=== PATIENT | female | born 1980 | race Caucasian/White ===

== ENCOUNTER → 2017-03-10 | Outpatient (CLI) | payer OTHER ==
--- NOTE | 2017-03-13 07:03 | US ---
EXAMINATION TYPE: US transvaginal DATE OF EXAM: 03/10/2017 COMPARISON: US May 16, 2015. CT abdomen and pelvis May 21, 2015 CLINICAL HISTORY: N83.20 Ovarian Cyst per order. TECHNIQUE: Transvaginal (TV) and Transabdominal (TA) Date of LMP: 02/08/2017 EXAM MEASUREMENTS: Uterus: 9.7 x 6.0 x 7.2 cm Endometrial Stripe: 0.9 cm Right Ovary: 3.8 x 3.7 x 3.7 cm Left Ovary: 4.6 x 4.2 x 3.3 cm a few images were taken transabdominally to supplement views of bilateral ovaries. 1. Uterus: Anteverted wnl 2. Endometrium: wnl 3. Right Ovary: 2.7 x 2.7 x 2.5 cm even echo lesion that contains a 1.2 x 1.2 x 1.4 cm echogenic are a. 4. Left Ovary: cyst measures 3.6 x 2.7 x3.9 cm, best seen transabdominally. . 5. Bilateral Adnexa: wnl 6. Posterior cul-de-sac: no free fluid IMPRESSION: There is redemonstration of 2.7 cm right ovarian dermoid with hyperechoic component corre sponding to smaller area of soft tissue density on CT. Lesion felt stable. There is new 3.9 cm hypoec hoic to anechoic oval left ovarian lesion favoring debris-filled or hemorrhagic cyst. Consider ultras ound follow-up in 6 weeks' time to rule out cystic neoplasm.
--- NOTE | 2017-03-13 07:58 | USB ---
Reason for exam: clinical finding. Indicated problem(s): lump or thickening in the left breast. Physical Findings: Nurse Summary: left inner aspect of breast 10 o'clock, subcutaneous area 1.5 x 0.5cm noted (nurse ts). US Breast LT Left breast ultrasound includes all four quadrants, the retroareolar region and axilla. Finding demonstrates a 1.2 x 0.7 x 1.4cm oval, solid lesion at 10 o'clock. May relate to an epidermal inclusion cyst and therefore ultrasound guided percutaneous biopsy is not recommended due to the risk of chemical mastitis. These results were verbally communicated with the patient and result sheet given to the patient on 03/10/17. ASSESSMENT: Suspicious, BI-RAD 4 RECOMMENDATION: Surgical consultation of the left breast. Dermatology consultation with excision recommended.
== END | disposition home or self-care (01) ==
LOC: RADUSWWP 14:59
PROVIDERS: ATTEND Pediatrics
DX: N63.0 Unspecified lump in unspecified breast (principal); N83.8 Other noninflammatory disorders of ovary, fallopian tube and broad ligament; N83.209 Unspecified ovarian cyst, unspecified side
CPT/HCPCS: 76830

== ENCOUNTER → 2017-03-30 | Outpatient (CLI) | payer OTHER | END | disposition home or self-care (01) | LOC: LABPAT 16:46 | PROVIDERS: ATTEND Anesthesiology | DX: Z01.812 Encounter for preprocedural laboratory examination (principal); Z01.818 Encounter for other preprocedural examination | CPT/HCPCS: 36415; 84132; 93005 ==

== ENCOUNTER 2017-04-04 08:14 | Day surgery (SDC) | payer OTHER ==
[2017-03-29 13:56] VITALS: BMI 41.2
[~2017-04-04 08:14] MED LIST: DEXAMETHASONE SOD PHOSPHATE 10 MG/ML 1 ML VIAL IV ONE; HEPARIN SODIUM,PORCINE 5,000 UNIT/ML 1 ML VIAL SQ ONE; LACTATED RINGERS 1,000 ML IV SCH; MORPHINE SULFATE 2 MG/ML SYRINGE IV PRN; ONDANSETRON 4 MG/2 ML VIAL IVP ONE; ONDANSETRON 4 MG/2 ML VIAL IVP PRN; Pre Op ABX Message 1 EACH MISC MISCELLANE ONE; fentaNYL (PF) 50 MCG/ML 2 ML AMP IV PRN
[2017-04-04 08:29] VITALS: RESP 16; TEMP 97
[2017-04-04] MEDS ORDERED: LIDOCAINE 1% 20 ML VIAL (10MG/ML) FOR IV START INTRADERMA ONE (08:35)
[2017-04-04] MEDS ORDERED: HEPARIN SODIUM,PORCINE 5,000 UNIT/ML 1 ML VIAL SQ ONE (08:48)
[2017-04-04] MEDS ORDERED: PROPOFOL 10 MG/ML 20 ML VIAL IV ONE (09:01)
[2017-04-04] MEDS ORDERED: fentaNYL (PF) 50 MCG/ML 2 ML AMP ONE (09:01)
[2017-04-04] MEDS ORDERED: LIDOCAINE 1% INJ 10MG/ML (20 ML MDV) ONE (09:01)
[2017-04-04] MEDS ORDERED: MIDAZOLAM 2 MG/2 ML VIAL ONE (09:01)
[2017-04-04] MEDS ORDERED: LIDOCAINE 1% INJ 10MG/ML (20 ML MDV) SQ ONE ×2 (09:15)
--- NOTE | 2017-04-04 09:37 | P.OP ---
Date of Procedure: 04/04/17 Preoperative Diagnosis: Cyst anterior chest wall Postoperative Diagnosis: Same Procedure(s) Performed: Sebaceous cyst excision Anesthesia: MAC Surgeon: Ally Daley Estimated Blood Loss (ml): 2 IV fluids (ml): 400 Pathology: other (Sebaceous cyst) Condition: stable Disposition: PACU Indications for Procedure: enlarging cyst chest wall Operative Findings: sebacious cyst Description of Procedure: Patient was taken to the operating room and following sedation the chest was prepped and draped in a sterile fashion. An incision was made over the palpable cystic abnormality. Wide excision was performed. The cyst was approximately 2.5 cm x 1 cm. After assured that hemostasis was attained the wound was well irrigated. Within the confines of the cyst was sebaceous material. The subcutaneous tissues were closed with 3-0 Vicryl suture. The skin was closed with 4-0 Monocryl. The patient tolerated the procedure in stable condition. All instrument and sponge counts were correct at the end of the case.
--- NOTE | 2017-04-04 09:38 | P.DS ---
Providers Attending physician: Ally Daley Primary care physician: Vimal Leavitt Plan - Discharge Summary New Discharge Prescriptions: No Action Ibuprofen [Motrin] 600 mg PO Q6HR PRN #20 tab PRN Reason: Pain Losartan-Hctz 50-12.5 mg [Hyzaar 50-12.5] 1 each PO DAILY metroNIDAZOLE [Flagyl] 500 mg PO BID Discharge Medication List Ibuprofen [Motrin] 600 mg PO Q6HR PRN #20 tab 11/30/16 [Rx] Losartan-Hctz 50-12.5 mg [Hyzaar 50-12.5] 1 each PO DAILY 03/29/17 [History] metroNIDAZOLE [Flagyl] 500 mg PO BID 03/29/17 [History] Follow up Appointment(s)/Referral(s): Ally Daley MD [STAFF PHYSICIAN] - 1 Week Activity/Diet/Wound Care/Special Instructions: Patient may shower after [address] today Discharge Disposition: HOME SELF-CARE
[2017-04-04 10:08] VITALS: BP 117/56; PULSE 70
--- NOTE | 2017-04-07 17:03 | CDI ---
Outpatient Documentation Clarification Form Date: 04/07/17 CDS/Electrical Control Assembler Name: Jaclyn Cowan Phone: If any questions, call Quynh Hudson Pin Cleaner at [phone] Patient Name: Vicky Miles Admit Date: 04/04/17 Discharge Date: 04/04/17 ATTENTION: The [facility] Coding Staff appreciate your assistance in clarifying documentation. Please respond to the clarification below the line at the bottom and electronically sign. The [facility] Coding staff will review the response and follow-up if needed. Please note: Queries are made part of the Legal Health Record. If you have any questions, please contact the Pin Cleaner. Dear Dr. Daley What is the size of skin repair/closure? Thank you for your kind consideration. MTDD
--- NOTE | 2017-04-11 12:52 | CDI ---
Documentation Clarification OP Outpatient Documentation Clarification Form Date: 04/07/17 CDS/Oil Field Operator Name: Jaclyn Cowan Phone: If any questions, call Quynh Hudson Academic Department Chair at [phone] Patient Name: Vicky Miles Admit Date: 04/04/17 Discharge Date: 04/04/17 ATTENTION: The [facility] Coding Staff appreciate your assistance in clarifying documentation. Please respond to the clarification below the line at the bottom and electronically sign. The [facility] Coding staff will review the response and follow-up if needed. Please note: Queries are made part of the Legal Health Record. If you have any questions, please contact the Academic Department Chair. Dear Dr. Daley What is the size of skin repair/closure? Thank you for your kind consideration. MTDD
--- NOTE | 2017-04-26 14:14 | CDI ---
Date: 04/07/17 CDS/Deputy Commonwealth'S Attorney Name: Jaclyn Cowan Phone: If any questions, call Quynh Hudson Organ Grinder at [phone] Patient Name: Vicky Miles Admit Date: 04/04/17 Discharge Date: 04/04/17 ATTENTION: The [facility] Coding Staff appreciate your assistance in clarifying documentation. Please respond to the clarification below the line at the bottom and electronically sign. The [facility] Coding staff will review the response and follow-up if needed. Please note: Queries are made part of the Legal Health Record. If you have any questions, please contact the Organ Grinder. Dear Dr. Daley What is the size of skin repair/closure? Thank you for your kind consideration. The size of the skin closure was 2.5 cm. MTDD
== END 2017-04-04 10:34 | disposition home or self-care (01) ==
LOC: OR 08:14
PROVIDERS: ATTEND Surgery
DX: L72.0 Epidermal cyst (principal); I10 Essential (primary) hypertension; F17.210 Nicotine dependence, cigarettes, uncomplicated; Z79.899 Other long term (current) drug therapy; E66.01 Morbid (severe) obesity due to excess calories; Z68.41 Body mass index [BMI] 40.0-44.9, adult
CPT/HCPCS: 11403; 12031; 81025; 88304; J2250; J1644; J1100; J2405; J2001; J3010; J2704

== ENCOUNTER → 2017-05-01 | Outpatient (CLI) | payer OTHER ==
--- NOTE | 2017-05-01 13:06 | US ---
EXAMINATION TYPE: US pelvic complete DATE OF EXAM: 05/01/2017 COMPARISON: Pelvic ultrasound March 10, 2017 CLINICAL HISTORY: N83.209 Ovarian cyst. TECHNIQUE: . Transabdominal sonographic images of the pelvis were acquired. Transvaginal sonographi c images were medically necessary to better assess the following anatomy: Date of LMP: 04/17/17 EXAM MEASUREMENTS: Uterus: 13.0 x 5.6 x 7.0 cm Endometrial Stripe: 1.0 cm Right Ovary: 4.4 x 2.9 x 3.0 cm Left Ovary: 3.1 x 2.4 x 2.3 cm 1. Uterus: Anteverted, heterogeneous 2. Endometrium: wnl 3. Right Ovary: redemonstration of 3.2 x 2.7 x 2.7 cm right ovarian dermoid with hyperechoic compon ent corresponding to smaller area of soft tissue density on CT 4. Left Ovary: wnl Spectral, color and waveform doppler imaging shows good arterial and venous flow within the ovaries ; there is no evidence for ovarian torsion. 5. Bilateral Adnexa: wnl 6. Posterior cul-de-sac: wnl IMPRESSION: There is interval resolution of nonsimple cyst left ovary consistent with resolved hemorr hagic cyst. There is stable 3.2 cm right ovarian dermoid.
== END | disposition home or self-care (01) ==
LOC: RADUSWWP 11:10
PROVIDERS: ATTEND Pediatrics
DX: D27.0 Benign neoplasm of right ovary (principal)
CPT/HCPCS: 76856

== ENCOUNTER 2017-11-04 15:47 | Emergency (ER) | payer OTHER ==
[2017-11-04 15:52] VITALS: BP 160/84; PULSE 95; RESP 18; TEMP 98.4
--- NOTE | 2017-11-04 17:10 | ED ---
General Adult HPI - General Chief complaint: Extremity Injury, Lower Stated complaint: Toe pain Time Seen by Provider: 11/04/17 16:08 Source: patient, RN notes reviewed Mode of arrival: ambulatory Limitations: no limitations - History of Present Illness Initial comments: 37-year-old female percent to the emergency department for a chief complaint of left great toe pain 2 days. Patient states she believes her toenail may be ingrown. Patient states that she did try to trim the distal part of the toenail and it did alleviate the pain for a bit but pain started again more proximately on the nail. Patient states most of the pain is located along the medial aspect of the left great toenail. She states it is painful to walk on. She denies any drainage from the nail. She denies any streaking or spreading redness. She denies any fevers or chills. Patient has no other complaints at this time including shortness of breath, chest pain, abdominal pain, nausea or vomiting, headache, or visual changes. - Related Data Home Medications Medication Instructions Recorded Confirmed Losartan-Hctz 50-12.5 mg [Hyzaar 1 each PO DAILY 03/29/17 04/04/17 50-12.5] metroNIDAZOLE [Flagyl] 500 mg PO BID 03/29/17 04/04/17 Previous Rx's Medication Instructions Recorded Ibuprofen [Motrin] 600 mg PO Q6HR PRN #20 tab 11/30/16 Cephalexin [Keflex] 500 mg PO Q6HR 7 Days cap 11/04/17 Allergies Allergy/AdvReac Type Severity Reaction Status Date / Time No Known Allergies Allergy Verified 11/04/17 15:52 Review of Systems ROS Statement: Those systems with pertinent positive or pertinent negative responses have been documented in the HPI. ROS Other: All systems not noted in ROS Statement are negative. 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 History of Any Multi-Drug Resistant Organisms: None Reported Past Surgical History: Section, Cholecystectomy, Tubal Ligation Additional Past Surgical History / Comment(s): x2 Past Anesthesia/Blood Transfusion Reactions: No Reported Reaction Past Psychological History: No Psychological Hx Reported Smoking Status: Current every day smoker Past Alcohol Use History: Occasional Past Drug Use History: None Reported - Past Family History Mother Family Medical History: Diabetes Mellitus, Hyperlipidemia, Hypertension Father Family Medical History: Cancer, Diabetes Mellitus, Hyperlipidemia, Hypertension General Exam Limitations: no limitations General appearance: alert, in no apparent distress Head exam: Present: atraumatic, normocephalic, normal inspection Eye exam: Present: normal appearance, PERRL, EOMI. Absent: scleral icterus, conjunctival injection, periorbital swelling ENT exam: Present: normal exam, mucous membranes moist Neck exam: Present: normal inspection, full ROM. Absent: tenderness, meningismus, lymphadenopathy Respiratory exam: Present: normal lung sounds bilaterally. Absent: respiratory distress, wheezes, rales, rhonchi, stridor Cardiovascular Exam: Present: regular rate, normal rhythm, normal heart sounds. Absent: systolic murmur, diastolic murmur, rubs, gallop, clicks Extremities exam: Present: full ROM (Full range motion of the left great toe), tenderness (Tenderness to the proximal medial aspect of the left great toenail. No tenderness in the MCP or IP joint of the left great toe. No tenderness to the lateral aspect of the great toe), normal capillary refill (Capillary refill less than 2 seconds and PD pulse 2+ in the left lower extremity), joint swelling (. Mild erythema noted of the medial aspect of the left great toenail. No edema noted. No spreading or streaking redness or signs of infection. Toenail does appear to be ingrown proximally.), other (Sensation intact in the left great toe) Neurological exam: Present: alert, oriented X3, CN II-XII intact Psychiatric exam: Present: normal affect, normal mood Course Vital Signs 11/04/17 15:50 Temperature 98.4 F Pulse Rate 95 Respiratory 18 Rate Blood Pressure 160/84 O2 Sat by Pulse 99 Oximetry Procedures - Procedures Initial comment: Area was cleaned with alcohol and 3 mL of 1% lidocaine was injected into the proximal left great toe to perform a digital block. Toe was then cleaned with iodine. Medial aspect of left great toenail was trimmed up to the eponychium. No complications or excessive bleeding. Medical Decision Making - Medical Decision Making 37-year-old female presents to the emergency department for left great toe pain 2 days. Patient states she believes it is ingrown. She states she did try to trim the distal aspect of the toenail which did alleviate the pain somewhat but patient still has pain on the medial aspect of the left great toenail more proximally. Patient states it hurts to walk or put on shoes. On exam toenail does appear to be ingrown. Mild erythema noted to the proximal nail bed without any evidence for cellulitis. No spreading or streaking redness or drainage. No infectious process at this time. I did offer x-ray to the patient which she refused at this time as she believes pain is related to right toenail. I did numb the toenail and trim the medial aspect of the toenail up to the epionychium. No complications. I did recommend following up with podiatry as patient's toenail is rather thickened. I discussed they may do further procedures or trim the nail more. Patient was also given Keflex to prevent any infection. She will return to the emergency Department if she notices any spreading or streaking redness, increased pain or swelling, drainage , fever, or any other worsening concerns which were discussed with her. Disposition Clinical Impression: Toe pain, left Disposition: HOME SELF-CARE Condition: Good Instructions: Ingrown Nail (ED) Additional Instructions: Please take Keflex as directed. Take Motrin and Tylenol for pain. Do warm soaks of the left foot. Please follow-up with primary care or podiatry in 1-2 days. Return to the emergency department if you have any worsening symptoms spreading or streaking redness, fevers or chills, worsening pain, or any other concerns. Prescriptions: Cephalexin [Keflex] 500 mg PO Q6HR 7 Days cap Is patient prescribed a controlled substance at d/c from ED?: No Referrals: Vimal Leavitt MD [Primary Care Provider] - 1-2 days Graham Rashid DPM [STAFF PHYSICIAN] - 1-2 days Time of Disposition: 17:09
== END 2017-11-04 17:16 | disposition home or self-care (01) ==
LOC: EC 15:47
DX: M79.675 Pain in left toe(s) (principal); I10 Essential (primary) hypertension; F17.200 Nicotine dependence, unspecified, uncomplicated; Z53.29 Procedure and treatment not carried out because of patient's decision for other reasons; Z79.899 Other long term (current) drug therapy
CPT/HCPCS: 64450; 99283

== ENCOUNTER 2018-03-10 11:09 | Emergency (ER) | payer OTHER ==
[2018-03-10 11:16] VITALS: BP 148/89; PULSE 73; RESP 18; TEMP 98.7
--- NOTE | 2018-03-10 11:54 | ED ---
Lower Extremity Injury HPI - General Chief Complaint: Extremity Injury, Lower Stated Complaint: R Ankle Pain Time Seen by Provider: 03/10/18 11:16 Source: patient, RN notes reviewed Mode of arrival: wheelchair Limitations: no limitations - History of Present Illness Initial Comments: 37-year-old female presents emergency Department with chief complaint of right ankle pain. Patient states that it's only hurts her with weightbearing and certain movements. Patient states started last night after work. She has had a prior fracture. Denies any paresthesias. She states it hurts along the lateral portion of her ankle denies for pain, proximal tib-fib pain. - Related Data Home Medications Medication Instructions Recorded Confirmed Losartan-Hctz 50-12.5 mg [Hyzaar 1 each PO DAILY 03/29/17 04/04/17 50-12.5] metroNIDAZOLE [Flagyl] 500 mg PO BID 03/29/17 04/04/17 Previous Rx's Medication Instructions Recorded Ibuprofen [Motrin] 600 mg PO Q6HR PRN #20 tab 11/30/16 Cephalexin [Keflex] 500 mg PO Q6HR 7 Days cap 11/04/17 Ibuprofen [Motrin] 600 mg PO Q8HR PRN #30 tab 03/10/18 Allergies Allergy/AdvReac Type Severity Reaction Status Date / Time No Known Allergies Allergy Verified 03/10/18 11:11 Review of Systems ROS Statement: Those systems with pertinent positive or pertinent negative responses have been documented in the HPI. ROS Other: All systems not noted in ROS Statement are negative. 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 History of Any Multi-Drug Resistant Organisms: None Reported Past Surgical History: Section, Cholecystectomy, Tubal Ligation Additional Past Surgical History / Comment(s): x2 Past Anesthesia/Blood Transfusion Reactions: No Reported Reaction Past Psychological History: No Psychological Hx Reported Smoking Status: Current every day smoker Past Alcohol Use History: None Reported Past Drug Use History: None Reported - Past Family History Mother Family Medical History: Diabetes Mellitus, Hyperlipidemia, Hypertension Father Family Medical History: Cancer, Diabetes Mellitus, Hyperlipidemia, Hypertension General Exam Limitations: no limitations General appearance: alert, in no apparent distress Head exam: Present: atraumatic, normocephalic, normal inspection Respiratory exam: Present: normal lung sounds bilaterally. Absent: respiratory distress, wheezes, rales, rhonchi, stridor Cardiovascular Exam: Present: regular rate, normal rhythm, normal heart sounds. Absent: systolic murmur, diastolic murmur, rubs, gallop, clicks Extremities exam: Present: other (Right ankle there is moderate swelling the lateral malleoli region, tenderness with palpation and pain with inversion, dorsiflexion neurovascular intact no foot tenderness no proximal tib-fib tenderness) Skin exam: Present: warm, dry, intact, normal color. Absent: rash Course Vital Signs 03/10/18 11:11 Temperature 98.7 F Pulse Rate 73 Respiratory 18 Rate Blood Pressure 148/89 O2 Sat by Pulse 98 Oximetry Medical Decision Making - Medical Decision Making 37-year-old female presented for right ankle injury. X-rays were obtained no acute fracture. Patient has a right ankle sprain. Patient was Daquan wrapped and will follow-up with her PCP. Disposition Clinical Impression: Right ankle sprain Disposition: HOME SELF-CARE Condition: Stable Instructions (If sedation given, give patient instructions): Ankle Sprain (ED) Additional Instructions: Please return to the Emergency Department if symptoms worsen or any other concerns. Prescriptions: Ibuprofen [Motrin] 600 mg PO Q8HR PRN #30 tab PRN Reason: Pain Is patient prescribed a controlled substance at d/c from ED?: No Referrals: Vimal Leavitt MD [Primary Care Provider] - 1-2 days Time of Disposition: 12:38
--- NOTE | 2018-03-10 12:24 | XR ---
EXAMINATION TYPE: XR ankle complete RT DATE OF EXAM: 03/10/2018 CLINICAL HISTORY: Injury last night with pain TECHNIQUE: Frontal, lateral and oblique images of the right ankle are obtained. COMPARISON: Right ankle x-ray July 13, 2013. FINDINGS: There is no acute fracture/dislocation evident in the right ankle. The ankle mortise appe ars within normal limits. Mild to moderate soft tissue swelling over the lateral malleolus is present . Incidental small sized superior and inferior calcaneal spurs are redemonstrated. IMPRESSION: There is no acute fracture or dislocation in the right ankle.
== END 2018-03-10 13:13 | disposition home or self-care (01) ==
LOC: EC 11:09
DX: S93.401A Sprain of unspecified ligament of right ankle, initial encounter (principal); I10 Essential (primary) hypertension; F17.200 Nicotine dependence, unspecified, uncomplicated; Z79.899 Other long term (current) drug therapy; X50.9XXA Other and unspecified overexertion or strenuous movements or postures, initial encounter
CPT/HCPCS: 99283

== ENCOUNTER → 2018-03-21 | Outpatient (CLI) | payer OTHER ==
--- NOTE | 2018-03-21 10:34 | ECHOS ---
STRESS ECHOCARDIOGRAM INDICATIONS: Chest pain. MEDICATIONS: Losartan, Glucophage. BASELINE HEART RATE: 66 BASELINE BLOOD PRESSURE: 115/52 MAXIMUM HEART RATE: 148 MAXIMUM BLOOD PRESSURE: 196/67 85% MPHR: 154 100% MPHR: 181 METS: 10.3 MAXIMUM STAGE REACHED: 3 TOTAL EXERCISE TIME: 9:00 CLINICAL INFORMATION: Baseline EKG shows sinus rhythm, normal axis, normal intervals. Patient exercised on Martinez protocol for a total of 9 minutes achieving 10 METS, 82% of predicted maximal heart rate without chest pain or diagnostic ST-segment depression. Baseline echo shows normal left ventricular size, wall motion and systolic function. Post exercise, there is normal hyperdynamic response of all the segments of myocardium noted. Contrast was used to enhance endocardial visualization both in rest and stress images. CONCLUSION: 1. Good exercise tolerance. 2. Inconclusive stress echo due to inability to attain target heart rate. 3. No evidence of ischemia at 82% of predicted maximal heart rate. MMODL / IJN: [id number] /
--- NOTE | 2018-03-21 12:41 | US ---
EXAMINATION TYPE: US pelvic complete DATE OF EXAM: 03/21/2018 COMPARISON: US dated 05/01/2017, CT abdomen pelvis 05/21/2015 CLINICAL HISTORY: R07.9 Chest pain D36.9 Dermoid cyst. Irregular menses, possible dermoid rt ovary on previous exam TECHNIQUE: Transabdominal (TA). Transabdominal sonographic images of the pelvis were acquired. Date of LMP: 01/10/2018 EXAM MEASUREMENTS: Uterus: 10.7 x 6.5 x 6.5 cm Endometrial Stripe: 0.7 cm Right Ovary: 4.5 x 3.0 x 3.4 cm Left Ovary: 3.8 x 3.2 x 3.7 cm 1. Uterus: Anteverted Heterogeneous 2. Endometrium: wnl 3. Right Ovary: cyst= 3.0 x 2.0 x 2.5 cm/ adjacent echogenic focus as seen on prior measures = 1.8 x 1.3 x 1.6 cm 4. Left Ovary: Cyst= 2.7 x 2.4 x 2.7 cm 5. Bilateral Adnexa: wnl 6. Posterior cul-de-sac: wnl IMPRESSION: Bilateral ovarian cystic lesions, echogenic focus adjacent to the right ovarian cyst show s a similar appearance to prior consistent with patient's history of dermoid.
== END | disposition home or self-care (01) ==
LOC: RADNMMAIN 08:23
PROVIDERS: ATTEND Pediatrics
DX: D27.0 Benign neoplasm of right ovary (principal); D27.1 Benign neoplasm of left ovary; R94.39 Abnormal result of other cardiovascular function study; R07.9 Chest pain, unspecified
CPT/HCPCS: 76856; 36415; C8930; Q9950; 93351

== ENCOUNTER → 2018-06-06 | Outpatient (CLI) | payer OTHER ==
--- NOTE | 2018-06-06 13:44 | MM ---
Reason for exam: screening (asymptomatic). Baseline mammogram. History: Took hormonal contraceptives beginning at age 18. Physical Findings: Nurse did not find any significant physical abnormalities on exam. MG 3D Screening Mammo W/Cad Bilateral CC and MLO view(s) were taken. There are scattered fibroglandular densities. Benign calcifications. These results were verbally communicated with the patient and result sheet given to the patient on 06/06/18. ASSESSMENT: Benign, BI-RAD 2 RECOMMENDATION: Routine screening mammogram of both breasts in 1 year.
== END | disposition home or self-care (01) ==
LOC: RADMAMWWP 12:57
PROVIDERS: ATTEND Pediatrics
DX: Z12.31 Encounter for screening mammogram for malignant neoplasm of breast (principal)
CPT/HCPCS: 77063; 77067

== ENCOUNTER → 2018-11-01 | Outpatient (CLI) | payer OTHER ==
[2018-11-01 10:00] LABS: Basophils # (A) 0.1 k/uL (0-0.2); Basophils % (A) 1 %; Eosinophils # (A) 0.3 k/uL (0-0.7); Eosinophils % (A) 3 %; HCT 40.8 % (34.0-46.0); HGB 13.8 gm/dL (11.4-16.0); Lymphocytes # (A) 2.6 k/uL (1.0-4.8); Lymphocytes % (A) 27 %; MCH 31.4 pg (25.0-35.0); MCHC 33.8 g/dL (31.0-37.0); Mean Platelet Volume 7.3; Monocytes # (A) 0.3 k/uL (0-1.0); Monocytes % (A) 3 %; Neutrophils # (A) 6.2 k/uL (1.3-7.7); Neutrophils % (A) 65 %; Platelet Count 216 k/uL (150-450); RBC 4.39 m/uL (3.80-5.40); WBC 9.5 k/uL (3.8-10.6)
[2018-11-01 10:25] LABS: Creatine Kinase MB 1.1 ng/mL (0.0-2.4); Troponin I <0.012 ng/mL (0.000-0.034)
--- NOTE | 2018-11-01 13:28 | XR ---
EXAMINATION TYPE: XR chest 2V DATE OF EXAM: 11/01/2018 COMPARISON: Prior chest x-ray 09/23/2015 HISTORY: Chest pain TECHNIQUE: Frontal and lateral views of the chest are obtained. FINDINGS: There is no focal air space opacity, pleural effusion, or pneumothorax seen. The cardiac silhouette size is within normal limits. The osseous structures are intact. Surgical clips are pres ent in the right upper quadrant. IMPRESSION: No acute cardiopulmonary process.
[2018-11-01 17:15] LABS: African American GFR (CKD) 132.1 (60.0-200.0); Albumin 4.3 g/dL (3.80-4.90); Albumin/Globulin Ratio 2.15 (1.60-3.17); Anion Gap 6.1 mmol/L (4.00-12.00); Calcium 8.9 mg/dL (8.7-10.3); Carbon Dioxide 24.9 mmol/L (21.6-31.8); Potassium 4.4 mmol/L (3.5-5.5); Total Bilirubin 0.4 mg/dL (0.3-1.2); Total Protein 6.3 g/dL (6.2-8.2)
== END | disposition home or self-care (01) ==
LOC: LABWHC1 09:11
PROVIDERS: ATTEND Nurse Practitioner Family
DX: R07.89 Other chest pain (principal)
CPT/HCPCS: 36415; 71046; 80053; 82553; 84484; 85025; 85379

== ENCOUNTER 2019-03-12 06:02 | Emergency (ER) | payer OTHER ==
[2019-03-12 06:10] VITALS: BP 161/87; PULSE 81; RESP 20; TEMP 98.1
--- NOTE | 2019-03-12 06:30 | ED ---
URI HPI - General Chief Complaint: Upper Respiratory Infection Stated Complaint: URI Time Seen by Provider: 03/12/19 06:17 Source: patient, family, RN notes reviewed Mode of arrival: ambulatory Limitations: no limitations - History of Present Illness Initial Comments: 38-year-old female presents emergency Department with chief complaint of cough congestion 2 weeks. Patient states initially started with sore throat and mild congestion but seems to not be improving. She has a productive cough in the morning which shows into a dry cough throughout the day. She reports no fever, chills, chest pain, shortness breath, headache or dizziness. No sick contacts. Patient states that she is a daily smoker has no history of asthma or COPD. - Related Data Home Medications Medication Instructions Recorded Confirmed Losartan-Hctz 50-12.5 mg [Hyzaar 1 each PO DAILY 03/29/17 04/04/17 50-12.5] metroNIDAZOLE [Flagyl] 500 mg PO BID 03/29/17 04/04/17 Previous Rx's Medication Instructions Recorded Ibuprofen [Motrin] 600 mg PO Q6HR PRN #20 tab 11/30/16 Cephalexin [Keflex] 500 mg PO Q6HR 7 Days cap 11/04/17 Ibuprofen [Motrin] 600 mg PO Q8HR PRN #30 tab 03/10/18 Albuterol Sulfate [Proair Hfa] 1 - 2 puff INHALATION Q4HR PRN #1 03/12/19 inhaler Azithromycin [Zithromax Z-pack] 0 mg PO DIRECTED #1 pack 03/12/19 predniSONE 50 mg PO DAILY #3 tab 03/12/19 Allergies Allergy/AdvReac Type Severity Reaction Status Date / Time No Known Allergies Allergy Verified 03/12/19 06:10 Review of Systems ROS Statement: Those systems with pertinent positive or pertinent negative responses have been documented in the HPI. ROS Other: All systems not noted in ROS Statement are negative. 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 History of Any Multi-Drug Resistant Organisms: None Reported Past Surgical History: Section, Cholecystectomy, Tubal Ligation Additional Past Surgical History / Comment(s): x2 Past Anesthesia/Blood Transfusion Reactions: No Reported Reaction Past Psychological History: No Psychological Hx Reported Smoking Status: Current every day smoker Past Alcohol Use History: None Reported Past Drug Use History: None Reported - Past Family History Mother Family Medical History: Diabetes Mellitus, Hyperlipidemia, Hypertension Father Family Medical History: Cancer, Diabetes Mellitus, Hyperlipidemia, Hypertension General Exam Limitations: no limitations General appearance: alert, in no apparent distress Head exam: Present: atraumatic, normocephalic, normal inspection Eye exam: Present: normal appearance, PERRL, EOMI. Absent: scleral icterus, conjunctival injection, periorbital swelling ENT exam: Present: normal exam, normal oropharynx, mucous membranes moist, TM's normal bilaterally, normal external ear exam Neck exam: Present: normal inspection, full ROM. Absent: tenderness, meningismus, lymphadenopathy Respiratory exam: Present: normal lung sounds bilaterally. Absent: respiratory distress, wheezes, rales, rhonchi, stridor Cardiovascular Exam: Present: regular rate, normal rhythm, normal heart sounds. Absent: systolic murmur, diastolic murmur, rubs, gallop, clicks Neurological exam: Present: alert, oriented X3 Skin exam: Present: warm, dry, intact, normal color. Absent: rash Course Vital Signs 03/12/19 06:06 Temperature 98.1 F Pulse Rate 81 Respiratory 20 Rate Blood Pressure 161/87 O2 Sat by Pulse 98 Oximetry Medical Decision Making - Medical Decision Making Chest x-ray does not show any significant abnormality, no infiltrate. Patient is a daily smoker since any further acute bronchitis she has minimal wheezing. Patient was placed on antibiotics, steroids and inhaler(managing her diabetes though she states that she is borderline. She will follow-up with PCP return for any worsening symptoms.I counseled the patient for smoking cessation for greater than 3 minutes Disposition Clinical Impression: Bronchitis Disposition: HOME SELF-CARE Condition: Stable Instructions (If sedation given, give patient instructions): Upper Respiratory Infection (ED) Additional Instructions: Please return to the Emergency Department if symptoms worsen or any other concerns. Prescriptions: predniSONE 50 mg PO DAILY #3 tab Albuterol Sulfate [Proair Hfa] 1 - 2 puff INHALATION Q4HR PRN #1 inhaler PRN Reason: difficulty in breathing Azithromycin [Zithromax Z-pack] 0 mg PO DIRECTED #1 pack Is patient prescribed a controlled substance at d/c from ED?: No Referrals: None,Stated [Primary Care Provider] - 1-2 days Time of Disposition: 06:43
--- NOTE | 2019-03-12 06:37 | XR ---
EXAMINATION TYPE: XR chest 2V DATE OF EXAM: 03/12/2019 COMPARISON: Chest x-ray November 01, 2018 HISTORY: Cough for 2 weeks. TECHNIQUE: Frontal and lateral views of the chest are obtained. FINDINGS: There is no focal air space opacity, pleural effusion, or pneumothorax seen. The cardiac silhouette size is within normal limits. The osseous structures are intact. Cholecystectomy clips a re redemonstrated. IMPRESSION: No suspicious acute pulmonary process. No significant change from prior.
== END 2019-03-12 06:53 | disposition home or self-care (01) ==
LOC: EC 06:02
DX: J20.9 Acute bronchitis, unspecified (principal); R73.03 Prediabetes; Z71.6 Tobacco abuse counseling; I10 Essential (primary) hypertension; F17.200 Nicotine dependence, unspecified, uncomplicated; Z83.3 Family history of diabetes mellitus; Z79.899 Other long term (current) drug therapy; Z87.42 Personal history of other diseases of the female genital tract
CPT/HCPCS: 71046; 99283; 99406

== ENCOUNTER → 2021-01-13 | Outpatient (CLI) | payer OTHER ==
--- NOTE | 2021-01-13 14:18 | US ---
EXAMINATION TYPE: US pelvic complete DATE OF EXAM: 01/13/2021 COMPARISON: US 2019 CLINICAL HISTORY: N94.6 DYSMENORRHEA,N92.1 MENORRHAGIA W/IRREG CYCLES. TECHNIQUE: Transabdominal (TA) Date of LMP: 12-03-20 EXAM MEASUREMENTS: Uterus: 12.2 x 6.6 x 6.6 cm Endometrial Stripe: 0.4 cm Right Ovary: 3.0 x 2.3 x 2.7 cm Left Ovary: 4.9 x 3.0 x 2.9 cm 1. Uterus: heterogeneous fibroid uterus, largest measuring 2. Endometrium: wnl 3. Right Ovary: cyst measuring 2.6 x 2.3 x 2.4cm with solid internal component measuring 1.4 x 1.7 x 1.5cm, this appears very similar to ultrasound in 2019 4. Left Ovary: cyst measuring 4.4 x 2.5 x 2.4cm, there was a smaller cyst seen on this ovary in 2019 5. Bilateral Adnexa: wnl 6. Posterior cul-de-sac: wnl IMPRESSION: 1. Stable complex cyst right ovary. 2. Left ovarian cyst. Follow up recommended.
== END | disposition home or self-care (01) ==
LOC: RADUSWWP 12:58
PROVIDERS: ATTEND Obstetrics & Gynecology
DX: N83.202 Unspecified ovarian cyst, left side (principal); N83.201 Unspecified ovarian cyst, right side; N94.6 Dysmenorrhea, unspecified
CPT/HCPCS: 76856

== ENCOUNTER 2021-01-22 06:55 | Day surgery (SDC) | payer OTHER ==
[2021-01-21 09:28] VITALS: BMI 38.2
--- NOTE | 2021-01-21 20:07 | P.HPOB ---
History of Present Illness H&P Date: 01/21/21 Chief Complaint: Menorrhagia with irregular cycle This is a 40 y.o. female, 4, para 4, who presents for dilatation and curettage with hysteroscopy and Novasure endometrial ablation due to menorrhagia with irregular menses. She complains of menses every 1-2 months lasting 4-5 days, very heavy and painful for the last several years. Pelvic ultrasound showed uterus measuring 12.2 x 6.6 x 6.6 cm, with fundal fibroid measuring up to 4.9 cm, with endometrium measuring 0.4 cm. Her right ovary had a cyst measuring 2.6 cm with solid internal component measuring 1.7 cm that has been stable and her left ovary had a cyst measuring up to 4.4 cm. She was advised that the size of her uterus may be too large for Novasure endometrial ablation and that the fibroids may interfere, but she would still like to attempt the surgery. OB Hx: . History of 2 vaginal deliveries and 2 sections. [employer] Hx: History of chlamydia in the past and abnormal pap smears in the past. Social Hx: . Works at a market. Review of Systems Constitutional: Reports fatigue, Denies chills, Denies fever Eyes: bilateral blurred vision, denies pain Ears, nose, mouth and throat: Denies headache, Denies sore throat Cardiovascular: Denies chest pain, Denies shortness of breath Respiratory: Denies cough Gastrointestinal: Denies abdominal pain, Denies diarrhea, Denies nausea, Denies vomiting Genitourinary: Reports dysmenorrhea, Reports dyspareunia, Reports menorrhagia Menstruation: Reports menses variable, Reports period heavy Musculoskeletal: Reports low back pain Integumentary: Denies pruritus, Denies rash Neurological: Denies numbness, Denies weakness Psychiatric: Reports irritability, Reports mood swings Endocrine: Reports flushing Past Medical History Past Medical History: Chest Pain / Angina, COPD, Diabetes Mellitus, Hypertension Additional Past Medical History / Comment(s): CYST ON LEFT CHEST ., STATES RECENT FLU., 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 History of Any Multi-Drug Resistant Organisms: None Reported Past Surgical History: Section, Cholecystectomy, Tubal Ligation Additional Past Surgical History / Comment(s): x2 Past Anesthesia/Blood Transfusion Reactions: No Reported Reaction Past Psychological History: No Psychological Hx Reported Smoking Status: Current every day smoker Past Alcohol Use History: None Reported Past Drug Use History: None Reported - Past Family History Mother Family Medical History: Diabetes Mellitus, Hyperlipidemia, Hypertension Father Family Medical History: Cancer, Diabetes Mellitus, Hyperlipidemia, Hypertension Medications and Allergies Home Medications Medication Instructions Recorded Confirmed Type lisinopriL [Zestril] 20 mg PO DAILY 01/21/21 01/22/21 History metFORMIN HCL [Glucophage] 1,000 mg PO BID 01/21/21 01/22/21 History sitaGLIPtin [Januvia] 25 mg PO DAILY 01/21/21 01/22/21 History Allergies Allergy/AdvReac Type Severity Reaction Status Date / Time No Known Allergies Allergy Verified 01/21/21 08:53 Exam Osteopathic Statement: *. No significant issues noted on an osteopathic structural exam other than those noted in the History and Physical/Consult. Intake and Output 01/21/21 01/21/21 01/21/21 06:59 14:59 22:59 Other: Weight 104.326 kg HEENT: within normal limits Heart: regular rate and rhythm Lungs: clear to auscultation bilaterally Abdomen: soft, non-tender Pelvic: uterus sl. enlarged, non-tender, no adnexal masses or tenderness Extremities: Neg. Molly's Results Result Diagrams: 01/22/21 07:30 Assessment and Plan (1) Menorrhagia with irregular cycle Current Visit: No Status: Acute Code(s): N92.1 - EXCESSIVE AND FREQUENT MENSTRUATION WITH IRREGULAR CYCLE SNOMED Code(s): 034339021 Plan: Proceed with dilatation and curettage with hysteroscopy and Novasure endometrial ablation. I have discussed the risks, benefits, and alternative therapies for the above- mentioned procedure and for both sedation/anesthesia as well as necessary blood products administration, if indicated, as they pertain to this patient. The patient has indicated her understanding and acceptance of the risks and procedures discussed.
[~2021-01-22 06:55] MED LIST changes: -DEXAMETHASONE SOD PHOSPHATE 10 MG/ML 1 ML VIAL IV ONE; -HEPARIN SODIUM,PORCINE 5,000 UNIT/ML 1 ML VIAL SQ ONE; -LACTATED RINGERS 1,000 ML IV SCH; -MORPHINE SULFATE 2 MG/ML SYRINGE IV PRN; -ONDANSETRON 4 MG/2 ML VIAL IVP ONE; -ONDANSETRON 4 MG/2 ML VIAL IVP PRN; -fentaNYL (PF) 50 MCG/ML 2 ML AMP IV PRN
[2021-01-22] MEDS ORDERED: DEXAMETHASONE SOD PHOSPHATE 4 MG/ML 1 ML VIAL IV ONE (07:09)
[2021-01-22] MEDS ORDERED: LACTATED RINGERS 1,000 ML IV SCH (07:09)
[2021-01-22] MEDS ORDERED: MIDAZOLAM 2 MG/2 ML VIAL IV PRN (07:09)
[2021-01-22] MEDS ORDERED: HYDROmorphone 0.5 MG/0.5 ML SYRINGE IVP PRN (07:09)
[2021-01-22] MEDS ORDERED: SCOPOLAMINE 1.5MG/72HR PATCH TRANSDERM ONE (07:09)
[2021-01-22] MEDS ORDERED: ONDANSETRON 4 MG/2 ML VIAL IVP ONE (07:09)
[2021-01-22 07:31] LABS: Glucose,Whole Blood 161 mg/dL (75-99)
[2021-01-22 07:34] VITALS: RESP 16
[2021-01-22] MEDS ORDERED: LIDOCAINE 1% (10MG/ML) FOR IV START INTRADERMA ONE (07:34)
[2021-01-22 07:41] LABS: Basophils # (A) 0.1 k/uL (0-0.2); Basophils % (A) 1 %; Eosinophils # (A) 0.7 k/uL (0-0.7); Eosinophils % (A) 6 %; HCT 42.6 % (34.0-46.0); HGB 14.4 gm/dL (11.4-16.0); Lymphocytes # (A) 2.4 k/uL (1.0-4.8); Lymphocytes % (A) 21 %; MCH 31.9 pg (25.0-35.0); MCHC 33.9 g/dL (31.0-37.0); MCV 94.1 fL (80.0-100.0); Mean Platelet Volume 7.9; Monocytes # (A) 0.4 k/uL (0-1.0); Monocytes % (A) 4 %; Neutrophils # (A) 7.5 k/uL (1.3-7.7); Neutrophils % (A) 68 %; Platelet Count 257 k/uL (150-450); RBC 4.52 m/uL (3.80-5.40); RDW 12.5 % (11.5-15.5)
[2021-01-22] MEDS ORDERED: PROPOFOL 10 MG/ML 20 ML VIAL IV ONE (08:32)
[2021-01-22] MEDS ORDERED: SUCCINYLCHOLINE CHLORIDE 100 MG/5 ML SYR IV ONE (08:32)
[2021-01-22] MEDS ORDERED: LIDOCAINE 1% INJ 10MG/ML (20 ML MDV) ONE (08:32)
[2021-01-22] MEDS ORDERED: MIDAZOLAM 2 MG/2 ML VIAL ONE (08:32)
[2021-01-22] MEDS ORDERED: .fentaNYL (PF) 50 MCG/ML 2 ML AMP ONE (08:32)
--- NOTE | 2021-01-22 09:09 | P.OP ---
Date of Procedure: 01/22/21 Preoperative Diagnosis: Menorrhagia with irregular cycle Uterine fibroids Postoperative Diagnosis: Same Procedure(s) Performed: Dilation and curettage with hysteroscopy and NovaSure endometrial ablation Anesthesia: ADRIENNE Surgeon: Radha Epperson Estimated Blood Loss (ml): 5 Pathology: other (Endometrial curettings) Condition: stable Disposition: same day Indications for Procedure: This is a 40 y.o. female, 4, para 4, who presents for dilatation and curettage with hysteroscopy and Novasure endometrial ablation due to menorrhagia with irregular menses. She complains of menses every 1-2 months lasting 4-5 days, very heavy and painful for the last several years. Pelvic ultrasound showed uterus measuring 12.2 x 6.6 x 6.6 cm, with fundal fibroid measuring up to 4.9 cm, with endometrium measuring 0.4 cm. Her right ovary had a cyst measuring 2.6 cm with solid internal component measuring 1.7 cm that has been stable and her left ovary had a cyst measuring up to 4.4 cm. She was advised that the size of her uterus may be too large for Novasure endometrial ablation and that the fibroids may interfere, but she would still like to attempt the surgery. Operative Findings: Uterus is bulky and mid position, sounded to 12 cm. Cervix is sounded to 4 cm. No specific adnexal masses are palpated but difficult due to patient's size. Upon hysteroscopy, relatively uniform thickness is noted with no specific polyps or fibroids visualized. Both tubal ostia are visualized. Minimal endometrial curettings are obtained. Description of Procedure: The patient is taken to the operating room. She is placed in the dorsal l ithotomy position after general anesthesia was given. She is prepped and draped in the normal sterile fashion. Bladder is drained with a catheter and then removed. Pelvic exam is performed under anesthesia. Uterus is found to be mid position, slightly enlarged with no adnexal masses. She is placed in slight Trendelenburg position. A right angle retractor is used to visualize the cervix. The anterior lip of the cervix is grasped with a single-tooth tenaculum. Cervix is sounded to 4 cm. Uterus is sounded to 12 cm. Cervix is gently dilated with Mendoza dilators until a hysteroscope could be passed. Hysteroscopy is performed using normal saline. The above noted findings are noted. Next a polyp forceps is introduced. A scant amount of tissue was obtained. Next medium-sized size sharp curette was placed. A minimal amount of endometrial curettings were obtained. Next NovaSure array was inserted into the endometrial cavity. Length was set at 6.5 cm and width was determined to be 4.8 cm. Next cavity assessment was completed and passed on the first try. Next NovaSure array was fired at 172 W for 40 seconds. Next the array was removed, inspected and then discarded. Next the hysteroscope was reinserted. Uniform charring was noted. Pictures were taken. Hysteroscope was removed. Single- tooth tenaculum was removed from the anterior lip of the cervix. Pressure was applied with a ring forcep for approximately a minute. This was removed. Minimal bleeding was noted. All other instruments removed from the vagina. Sponge counts were correct. Patient is taken to recovery room in stable condition.
[2021-01-22 09:29] VITALS: TEMP 97
[2021-01-22] MEDS ORDERED: KETOROLAC 15 MG/ML 1 ML VIAL IVP ONE ×2 (10:40)
[2021-01-22 11:20] VITALS: BP 133/74; PULSE 84
== END 2021-01-22 11:36 | disposition home or self-care (01) ==
LOC: OR 06:55
PROVIDERS: ATTEND Obstetrics & Gynecology
DX: N94.6 Dysmenorrhea, unspecified (principal); N92.1 Excessive and frequent menstruation with irregular cycle; N92.0 Excessive and frequent menstruation with regular cycle; J44.9 Chronic obstructive pulmonary disease, unspecified; E11.9 Type 2 diabetes mellitus without complications; I10 Essential (primary) hypertension; F17.210 Nicotine dependence, cigarettes, uncomplicated; Z79.899 Other long term (current) drug therapy; Z79.84 Long term (current) use of oral hypoglycemic drugs
CPT/HCPCS: 81025; 85025; 58563; J2250; J1100; J2405; J2001; J3010; J1885; J0330; J2704; J1170; 88305

== ENCOUNTER 2021-02-27 19:08 | Observation (INO) | payer OTHER ==
[2021-02-27] MEDS ORDERED: MORPHINE SULFATE 4 MG/ML SYRINGE IV STA ×2 (19:50→21:30)
[2021-02-27] MEDS ORDERED: ASPIRIN 81 MG PO STA (19:50)
[2021-02-27] MEDS ORDERED: ONDANSETRON 4 MG/2 ML VIAL IVP STA (19:50)
--- NOTE | 2021-02-27 19:55 | ED ---
Chest Pain HPI - General Chief Complaint: Chest Pain Stated Complaint: Chest pain Time Seen by Provider: 02/27/21 19:45 Source: patient, RN notes reviewed Mode of arrival: wheelchair - History of Present Illness Initial Comments: This is a pleasant 40-year-old female with history of diabetes mellitus, hypertension, hyperlipidemia. Patient also has a family history of cardiac disease, no one under the age of 50. Patient states about one hour ago she developed intermittent anterior chest wall pain which is reproducible. States it feels like pressure that comes and goes. It comes for several minutes and goes away. Patient states she ascertain she has some difficulty breathing with this. Patient has no history of DVT or PE. No history of hormone use. Denies chance of . Patient did have a recent surgical procedure in late January. She had a uterine ablation. But that the patient had COVID-19 last year and is unvaccinated. No headache, no fever or chills, no changes in vision or hearing, no sore throat or difficulty with speech, no neck pain, no abdominal pain, no nausea or vomiting, no changes in urination or bowel movements, no numbness or tingling, no extremity pain, no skin rashes or lesions. - Related Data Home Medications Medication Instructions Recorded Confirmed lisinopriL [Zestril] 20 mg PO DAILY 01/21/21 02/27/21 metFORMIN HCL [Glucophage] 1,000 mg PO BID 01/21/21 02/27/21 sitaGLIPtin [Januvia] 25 mg PO DAILY 01/21/21 02/27/21 Allergies Allergy/AdvReac Type Severity Reaction Status Date / Time No Known Allergies Allergy Verified 02/27/21 22:15 Review of Systems ROS Statement: Those systems with pertinent positive or pertinent negative responses have been documented in the HPI. ROS Other: All systems not noted in ROS Statement are negative. EKG Findings - EKG Comments: EKG Findings:: EKG done at 1927 read by the ED attending physician reveals ventricular rate of 63, normal intervals, normal axis. No sinus rhythm, no ST or T-wave changes. 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 History of Any Multi-Drug Resistant Organisms: None Reported Past Surgical History: Section, Cholecystectomy, Tubal Ligation Additional Past Surgical History / Comment(s): x2 Past Anesthesia/Blood Transfusion Reactions: No Reported Reaction Past Psychological History: No Psychological Hx Reported Smoking Status: Never smoker Past Alcohol Use History: None Reported Past Drug Use History: None Reported - Past Family History Mother Family Medical History: Diabetes Mellitus, Hyperlipidemia, Hypertension Father Family Medical History: Cancer, Diabetes Mellitus, Hyperlipidemia, Hypertension General Exam - General Exam Comments Initial Comments: Obese female in no acute distress. Does not appear to be ill or toxic. General appearance: alert, in no apparent distress Head exam: Present: atraumatic, normocephalic, normal inspection Eye exam: Present: normal appearance, PERRL, EOMI. Absent: scleral icterus, conjunctival injection, periorbital swelling ENT exam: Present: normal exam, normal oropharynx, mucous membranes moist, normal external ear exam Neck exam: Present: normal inspection, full ROM. Absent: tenderness, meningi smus, lymphadenopathy Respiratory exam: Present: normal lung sounds bilaterally, chest wall tenderness. Absent: respiratory distress, wheezes, rales, rhonchi, stridor, accessory muscle use Cardiovascular Exam: Present: regular rate, normal rhythm, normal heart sounds. Absent: systolic murmur, diastolic murmur, rubs, gallop, clicks GI/Abdominal exam: Present: soft, normal bowel sounds. Absent: distended, tenderness, guarding, rebound, rigid Extremities exam: Present: normal inspection, full ROM, normal capillary refill. Absent: tenderness, pedal edema, joint swelling, calf tenderness Back exam: Present: normal inspection Neurological exam: Present: alert, oriented X3, CN II-XII intact Psychiatric exam: Present: normal affect, normal mood Skin exam: Present: warm, dry, intact, normal color. Absent: rash Course Vital Signs 02/27/21 02/27/21 19:13 22:36 Temperature 98 F Pulse Rate 75 68 Respiratory 18 18 Rate Blood Pressure 159/88 144/78 O2 Sat by Pulse 99 97 Oximetry - Reevaluation(s) Reevaluation #1: 02/27/21 21:30 Medical record is reviewed Patient is unchanged, elevated d-dimer, CT Miguelina Delgado ordered Patient is informed of results and questions answered Patient in no distress Reevaluation #2: 02/27/21 23:18 Medical record is reviewed Symptoms are improved here in the emergency department Patient is informed of results and questions answered Patient in no distress Chest Pain MDM - Differential Diagnosis AMI, ACS, PE, Pericarditis, GERD, Esophageal Spasm, Biliary Colic, Pancreatitis, Chest Wall Syndrome - MDM Patient has multiple risk factors for cardiovascular disease. First troponin was negative. Case discussed in detail with ED attending physician. Patient admitted for observation. Discussed with Dr. Iverson. Cardiology consultation placed. Disposition Referrals: Robert Loo MD [Primary Care Provider] - 1-2 days
--- NOTE | 2021-02-27 20:30 | XR ---
EXAMINATION TYPE: XR chest 1V portable DATE OF EXAM: 02/27/2021 COMPARISON: NONE HISTORY: Chest pain TECHNIQUE: Single view FINDINGS: Heart and mediastinum are normal. Lungs are clear. Diaphragm is normal. Bony thorax is inta ct. IMPRESSION: Normal chest. No change.
[2021-02-27 20:44] LABS: Basophils # (A) 0.1 k/uL (0-0.2); Basophils % (A) 0 %; Eosinophils # (A) 0.2 k/uL (0-0.7); Eosinophils % (A) 2 %; HCT 41.4 % (34.0-46.0); HGB 13.9 gm/dL (11.4-16.0); Lymphocytes # (A) 2.7 k/uL (1.0-4.8); Lymphocytes % (A) 25 %; MCH 31.6 pg (25.0-35.0); MCHC 33.7 g/dL (31.0-37.0); MCV 93.7 fL (80.0-100.0); Mean Platelet Volume 8.7; Monocytes # (A) 0.4 k/uL (0-1.0); Monocytes % (A) 4 %; Neutrophils # (A) 7.6 k/uL (1.3-7.7); Neutrophils % (A) 68 %; Platelet Count 224 k/uL (150-450); RBC 4.41 m/uL (3.80-5.40); RDW 12.9 % (11.5-15.5); WBC 11.1 k/uL (3.8-10.6)
[2021-02-27 20:56] LABS: ALT 21 U/L (4-34); AST 22 U/L (14-36); African American GFR (CKD) >90 (>60 ml/min/1.73 sqM); Albumin 4.1 g/dL (3.5-5.0); Alkaline Phosphatase 63 U/L (38-126); Anion Gap 9 mmol/L; Blood Urea Nitrogen 14 mg/dL (7-17); Calcium 9.3 mg/dL (8.4-10.2); Carbon Dioxide 24 mmol/L (22-30); Chloride 103 mmol/L (98-107); Glucose 210 mg/dL (74-99); Lipase 100 U/L (23-300); Magnesium 1.4 mg/dL (1.6-2.3); Non-African American GFR(CKD) >90 (>60 ml/min/1.73 sqM); Potassium 4.1 mmol/L (3.5-5.1); Sodium 136 mmol/L (137-145); Total Bilirubin 0.4 mg/dL (0.2-1.3)
[2021-02-27 21:03] LABS: INR 0.9 (<1.2); Prothrombin Time 9.8 sec (9.0-12.0)
[2021-02-27 22:01] LABS: Appearance,Urine Clear (Clear); Bacteria,Urine Rare /hpf; Bilirubin,Urine Negative (Negative); Blood,Urine Negative (Negative); Color,Urine Yellow; Glucose,Urine (UA) 4+ (Negative); Ketones,Urine Trace (Negative); Leukocyte Esterase,Urine Trace (Negative); Mucus,Urine Rare /hpf; Nitrite,Urine Negative (Negative); PH, Urine 5.5 (5.0-8.0); Protein,Urine 1+ (Negative); RBC,Urine 1 /hpf (0-5); Specific Gravity,Urine 1.026 (1.001-1.035); Squamous Epithelial Cell,Urine 2 /hpf (0-4); Urobilinogen,Urine <2.0 mg/dL (<2.0); WBC,Urine 4 /hpf (0-5)
--- NOTE | 2021-02-27 22:14 | CT ---
EXAMINATION TYPE: CT angio chest DATE OF EXAM: 02/27/2021 COMPARISON: 01/03/2014 HISTORY: chest pain CT DLP: 526.3 mGycm Automated exposure control for dose reduction was used. CONTRAST: Performed with IV Contrast, patient injected with 80 mL of Isovue 370. There are Three-D postprocessed images. There is some diffuse interstitial infiltrate throughout the lungs. There is no pleural effusion. Hea rt is enlarged. There is no pericardial effusion. There are no hilar masses. There is no mediastinal adenopathy. There is normal contrast opacification of the pulmonary arteries. There are no filling defects. Thoracic aorta is intact. There is no aneurysm or dissection. Thoracic spine is intact. There is no compression fracture. Sternum is intact. IMPRESSION: Groundglass diffuse pulmonary interstitial pneumonia which is a change compared to old exam. No evidence of pulmonary embolism. Mild cardiomegaly. Heart appears increased compared to old exam.
[2021-02-27] MEDS: MAGNESIUM SULFATE-D5W PMX 1 GM in DEXTROSE/WATER 1 100ML.BAG IVPB SCH (22:27)
[2021-02-27] MEDS ORDERED: NITROGLYCERIN SL TABS 0.4 MG TAB SUBLINGUAL PRN (23:13)
[2021-02-27] MEDS ORDERED: ACETAMINOPHEN TAB 325 MG TAB PO PRN (23:13)
[2021-02-28] MEDS: MAGNESIUM SULFATE-D5W PMX 1 GM in DEXTROSE/WATER 1 100ML.BAG IVPB SCH (02:58)
[2021-02-28 03:52] VITALS: RESP 17
[2021-02-28 04:47] LABS: Glucose,Whole Blood 161 mg/dL (75-99)
[2021-02-28 07:25] LABS: Glucose,Whole Blood 170 mg/dL (75-99)
[2021-02-28 08:51] VITALS: BP 124/73; PULSE 63; TEMP 98.3
[2021-02-28] MEDS ORDERED: METOPROLOL TARTRATE 25 MG TAB PO SCH (09:00)
[2021-02-28] MEDS ORDERED: ATORVASTATIN 20 MG TAB PO SCH (09:00)
[2021-02-28] MEDS ORDERED: ASPIRIN 325 MG TAB PO SCH (09:00)
[2021-02-28 09:18] LABS: Chol/HDL Ratio 6.65 Ratio; LDL Cholesterol,Calculated 162.8 mg/dL (0.0-131.0)
--- NOTE | 2021-02-28 09:19 | P.CRDCN ---
History of Present Illness History of present illness: 40-year-old lady with history of hypertension diabetes obesity comes to Hospital complaining of chest pain. She states that she was watching something on her eye pad and had an episode of chest discomfort. It gradually got worse. Mild to moderate intensity at rest unrelated to exertion not associated with diaphoresis. There was no definite radiation to neck, or back. She has had 3 sets of cardiac enzymes that are all within normal limits EKG does not reveal ischemic changes. There is no prior history of coronary artery disease or congestive heart failure. Patient has history of hypertension and sees Dr. SAYRA Ashford in my office for the same. She had a negative stress echo in 2019. She had a computed tomography scan of the chest that is negative for pulmonary embolism . 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 Has some groundglass changes and lungs but does not have any shortness of breath or other respiratory symptoms. Patient is stable for discharge she is symptom-free this morning and she needs an outpatient echo and stress test which will be arranged through Dr. Ashford's office Constitutional: Denies chills. Denies fever. Eyes: Denies blurred vision. Denies pain. Ears, nose, mouth and throat: Denies headache. Denies sore throat. Cardiovascular: Significant for chest pain. Denies shortness of breath. Respiratory: Denies cough. Gastrointestinal: Denies abdominal pain. Denies diarrhea. Denies nausea. Denies vomiting. Musculoskeletal: Denies myalgias. Integumentary: Denies pruritus. Denies rash. Neurological: Denies numbness. Denies weakness. Psychiatric: Denies anxiety. Denies depression. Endocrine: Denies fatigue. Denies weight change. Genitourinary: Denies burning, hematuria, frequency of urination. Hematological: No anemia or excess bleeding. General: The patient is awake and alert, in no distress, and does not appear acutely ill. Skin: Skin is warm and dry and no rashes or lesions are noted. Eye: Pupils are equal, round and reactive to light, extra-ocular movements are intact; there is normal conjunctiva bilaterally. Ears, nose, mouth and throat: There are moist mucous membranes and no oral lesions. Neck: The neck is supple, there is no tenderness or JVD. Cardiovascular: There is a regular rate and rhythm. No murmur, rub or gallop is appreciated. Respiratory: Lungs are clear to auscultation, respirations are non-labored, breath sounds are equal. Gastrointestinal: Soft, non-distended, non-tender abdomen without masses or o rganomegaly noted. There is no rebound or guarding present. Bowel sounds are unremarkable. Back: There is no tenderness to palpation in the midline. There is no obvious deformity. Musculoskeletal: Normal ROM, no tenderness, There is no pedal edema. There is no calf tenderness or swelling. Extremities: No edema. Vascular: Femoral pulse is normal. Posterior tibial pulses are normal .Dorsalis pedis is palpable. Neurological: CN II-XII intact. There are no obvious motor or sensory deficits. Speech is normal. Psychiatric: Cooperative, appropriate mood & affect, normal judgment. 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 History of Any Multi-Drug Resistant Organisms: None Reported Past Surgical History: Section, Cholecystectomy, Tubal Ligation Additional Past Surgical History / Comment(s): x2 Past Anesthesia/Blood Transfusion Reactions: No Reported Reaction Past Psychological History: No Psychological Hx Reported Additional Psychological History / Comment(s): . Smoking Status: Never smoker Past Alcohol Use History: None Reported Additional Past Alcohol Use History / Comment(s): SMOKES 1/2 PPD. SMOKING SINCE AGE 14. Past Drug Use History: None Reported - Past Family History Mother Family Medical History: Diabetes Mellitus, Hyperlipidemia, Hypertension Father Family Medical History: Cancer, Diabetes Mellitus, Hyperlipidemia, Hypertension Medications and Allergies Home Medications Medication Instructions Recorded Confirmed Type lisinopriL [Zestril] 20 mg PO DAILY 01/21/21 02/27/21 History metFORMIN HCL [Glucophage] 1,000 mg PO BID 01/21/21 02/27/21 History sitaGLIPtin [Januvia] 25 mg PO DAILY 01/21/21 02/27/21 History Allergies Allergy/AdvReac Type Severity Reaction Status Date / Time No Known Allergies Allergy Verified 02/27/21 22:15 Physical Exam Vitals: Vital Signs Temp Pulse Pulse Resp BP BP Pulse Ox 02/28/21 07:00 98.3 F 63 17 124/73 97 02/28/21 00:47 98.1 F 80 17 132/75 96 02/28/21 00:14 70 16 147/72 96 02/27/21 23:39 80 18 137/68 98 02/27/21 22:36 68 18 144/78 97 02/27/21 19:13 98 F 75 18 159/88 99 Intake and Output 02/27/21 02/28/21 02/28/21 22:59 06:59 14:59 Other: # Voids 2 Weight 104.326 kg 104.326 kg Results 02/27/21 20:10 02/27/21 20:10 Cardiac Enzymes 02/27/21 02/27/21 02/28/21 Range/Units 20:10 20:10 01:05 AST 22 (14-36) U/L Troponin I <0.012 0.028 (0.000-0.034) ng/mL 02/28/21 Range/Units 03:21 AST (14-36) U/L Troponin I <0.012 (0.000-0.034) ng/mL Coagulation 02/27/21 Range/Units 20:10 PT 9.8 (9.0-12.0) sec CBC 02/27/21 Range/Units 20:10 WBC 11.1 H (3.8-10.6) k/uL RBC 4.41 (3.80-5.40) m/uL Hgb 13.9 (11.4-16.0) gm/dL Hct 41.4 (34.0-46.0) % Plt Count 224 (150-450) k/uL Comprehensive Metabolic Panel 02/27/21 Range/Units 20:10 Sodium 136 L (137-145) mmol/L Potassium 4.1 (3.5-5.1) mmol/L Chloride 103 (98-107) mmol/L Carbon Dioxide 24 (22-30) mmol/L BUN 14 (7-17) mg/dL Creatinine 0.58 (0.52-1.04) mg/dL Glucose 210 H (74-99) mg/dL Calcium 9.3 (8.4-10.2) mg/dL AST 22 (14-36) U/L ALT 21 (4-34) U/L Alkaline Phosphatase 63 (38-126) U/L Total Protein 7.0 (6.3-8.2) g/dL Albumin 4.1 (3.5-5.0) g/dL Current Medications Generic Name Dose Route Start Last Admin Trade Name Freq PRN Reason Stop Dose Admin Acetaminophen 650 mg 02/27/21 23:13 Acetaminophen Tab 325 Mg Tab PO Q4HR PRN Pain Aspirin 325 mg 02/28/21 09:00 Aspirin 325 Mg Tab PO DAILY VALERIE Nitroglycerin 0.4 mg 02/27/21 23:13 Nitroglycerin Sl Tabs 0.4 Mg Tab SUBLINGUAL Q5M PRN Chest Pain Intake and Output 02/27/21 02/28/21 02/28/21 22:59 06:59 14:59 Other: # Voids 2 Weight 104.326 kg 104.326 kg 02/27/21 20:10 02/27/21 20:10
[2021-02-28] MEDS ORDERED: metFORMIN 500 MG TAB PO SCH (11:00)
[2021-02-28] MEDS ORDERED: LINAGLIPTIN 5 MG TABLET PO SCH (11:00)
[2021-02-28] MEDS ORDERED: lisinopriL 20 MG TAB PO SCH (11:00)
[2021-02-28] MEDS ORDERED: INSULIN ASPART (NovoLOG) 100 UNIT/ML VIAL SQ SCH (12:30)
--- NOTE | 2021-02-28 19:53 | P.HPIM ---
History of Present Illness H&P Date: 02/28/21 Chief Complaint: Sharp chest pain This is a very pleasant 40-year-old patient who follows with Dr. Loo. Chronic stable medical conditions include diabetes, hypertension, hyperlipidemia. Patient stopped smoking 3 weeks ago. Yesterday she noticed a sharp pain in the center of the chest just lateral to the breast bone lasted for about a few seconds. Came back over 2 minutes. Then again lasted a short time then went away. Somewhat sharp. Did go through the back little bit. Then lingered on for dialysis for some time. No fever no chills. She is not sure she felt a little bit dizzy and mildly short of breath. No swelling of the legs. No pain in the calves. No prior cardiac history. Patient is very active. It did not radiate anywhere else. Decided to come in. Review of systems: GEN.: None EYES: None HEENT: None NECK: None RESPIRATORY: None CARDIOVASCULAR: As above GASTROINTESTINAL: None GENITOURINARY: None MUSCULOSKELETAL: As above LYMPHATICS: None HEMATOLOGICAL: None PSYCHIATRY: None NEUROLOGICAL: None Past medical history to include: Diabetes, hypertension, hyperlipidemia, Social history: Patient smoked about half a pack a day for 24 years stopped 3 weeks ago. No alcohol. Works at the [employer]. with 3 children. Family history: Diabetes, hypertension, hyperlipidemia Physical examination: VITAL SIGNS: 98.3, 63, 17, 1 24 x 73, 97% room air GENERAL: BMI 38.3, sitting up, comfortable. EYES: Pupils equal. Conjunctiva normal. HEENT: External appearance of nose and ears normal, oral cavity grossly normal. NECK: JVD not raised; masses not palpable. HEART: First and second heart sounds are normal; no edema. LUNGS: Respiratory rate normal; clear to auscultation. ABDOMEN: Soft, nontender, liver spleen not palpable, no masses palpable. PSYCH: Alert and oriented x3; mood and affect normal. MUSCULOSKELETAL:No Clubbing/cyanosis;muscles-grossly intact. Point tenderness at the left reproducible point sternum to third one third down on the left side NEUROLOGICAL: Cranial nerves grossly intact; no facial asymmetry, power and sensation grossly intact. LYMPHATICS: No lymph nodes palpable in the axilla and neck INVESTIGATIONS, reviewed in the clinical context: White count 9.1 hemoglobin 13.9 platelets 224 sodium 136 potassium 4.1 creatinine 0.58 Troponin I less than 0.012, 0.028, less than 0.012 LDL 162 Coronavirus [PCR]: Not detected EKG tracing personally reviewed by me-normal sinus rhythm. Chest x-ray film personally reviewed by me-lungs clear CT chest angiogram: No PE. Interstitial infiltrate some. Assessment and plan: -New onset of Sharp localize anterior chest wall pain. Reproducible. Likely localize acute costochondritis. Given cardiac risk factors of diabetes hypertension hyperlipidemia smoking patient to be seen by cardiology. -Obesity BMI 38.3 Patient counseled about weight loss measures. -Diabetes mellitus type 2 Januvia 25 mg a day, metformin thousand gram twice a day -Essential hypertension Zestril 20 mg a day -Hyperlipidemia Lipitor 40mg a day Weight loss measures discussed with the patient. Resume home medications. Cardiology consulted. Telemetry. 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 History of Any Multi-Drug Resistant Organisms: None Reported Past Surgical History: Section, Cholecystectomy, Tubal Ligation Additional Past Surgical History / Comment(s): x2 Past Anesthesia/Blood Transfusion Reactions: No Reported Reaction Past Psychological History: No Psychological Hx Reported Additional Psychological History / Comment(s): . Smoking Status: Never smoker Past Alcohol Use History: None Reported Additional Past Alcohol Use History / Comment(s): SMOKES 1/2 PPD. SMOKING SINCE AGE 14. Past Drug Use History: None Reported - Past Family History Mother Family Medical History: Diabetes Mellitus, Hyperlipidemia, Hypertension Father Family Medical History: Cancer, Diabetes Mellitus, Hyperlipidemia, Hypertension Medications and Allergies Home Medications Medication Instructions Recorded Confirmed Type lisinopriL [Zestril] 20 mg PO DAILY 01/21/21 02/27/21 History metFORMIN HCL [Glucophage] 1,000 mg PO BID 01/21/21 02/27/21 History sitaGLIPtin [Januvia] 25 mg PO DAILY 01/21/21 02/27/21 History Acetaminophen Tab [Tylenol] 650 mg PO Q4HR PRN tab 02/28/21 Rx Aspirin 81 mg PO DAILY #30 tab 02/28/21 Rx Allergies Allergy/AdvReac Type Severity Reaction Status Date / Time No Known Allergies Allergy Verified 02/27/21 22:15 Physical Exam Vitals: Vital Signs Temp Pulse Pulse Resp BP BP Pulse Ox 02/28/21 07:00 98.3 F 63 17 124/73 97 02/28/21 00:47 98.1 F 80 17 132/75 96 02/28/21 00:14 70 16 147/72 96 02/27/21 23:39 80 18 137/68 98 02/27/21 22:36 68 18 144/78 97 Intake and Output 02/28/21 02/28/21 02/28/21 06:59 14:59 22:59 Intake Total 118 Balance 118 Intake: Oral 118 Other: # Voids 2 Weight 104.326 kg Results CBC & Chem 7: 02/27/21 20:10 02/27/21 20:10 Labs: Abnormal Lab Results - Last 24 Hours (Table) 02/27/21 02/27/21 02/27/21 Range/Units 20:10 20:10 20:10 WBC 11.1 H (3.8-10.6) k/uL D-Dimer 1.84 H (<0.60) mg/L FEU Sodium (137-145) mmol/L Glucose (74-99) mg/dL POC Glucose (mg/dL) (75-99) mg/dL Hemoglobin A1c (0.0-6.0) % Magnesium (1.6-2.3) mg/dL Triglycerides (0.00-149.00) mg/dL Cholesterol (0.00-200.00) mg/dL LDL Cholesterol, Calc (0.0-131.0) mg/dL VLDL Cholesterol, Calc (5.00-40.00) mg/dL HDL Cholesterol (40.00-60.00) mg/dL Urine Protein 1+ H (Negative) Urine Glucose (UA) 4+ H (Negative) Urine Ketones Trace H (Negative) Ur Leukocyte Esterase Trace H (Negative) Urine Bacteria Rare H (None) /hpf Urine Mucus Rare H (None) /hpf 02/27/21 02/27/21 02/28/21 Range/Units 20:10 20:10 03:21 WBC (3.8-10.6) k/uL D-Dimer (<0.60) mg/L FEU Sodium 136 L (137-145) mmol/L Glucose 210 H (74-99) mg/dL POC Glucose (mg/dL) (75-99) mg/dL Hemoglobin A1c 9.7 H (0.0-6.0) % Magnesium 1.4 L (1.6-2.3) mg/dL Triglycerides 265.00 H (0.00-149.00) mg/dL Cholesterol 254.00 H (0.00-200.00) mg/dL LDL Cholesterol, Calc 162.8 H (0.0-131.0) mg/dL VLDL Cholesterol, Calc 53.00 H (5.00-40.00) mg/dL HDL Cholesterol 38.20 L (40.00-60.00) mg/dL Urine Protein (Negative) Urine Glucose (UA) (Negative) Urine Ketones (Negative) Ur Leukocyte Esterase (Negative) Urine Bacteria (None) /hpf Urine Mucus (None) /hpf 02/28/21 02/28/21 Range/Units 04:46 07:23 WBC (3.8-10.6) k/uL D-Dimer (<0.60) mg/L FEU Sodium (137-145) mmol/L Glucose (74-99) mg/dL POC Glucose (mg/dL) 161 H 170 H (75-99) mg/dL Hemoglobin A1c (0.0-6.0) % Magnesium (1.6-2.3) mg/dL Triglycerides (0.00-149.00) mg/dL Cholesterol (0.00-200.00) mg/dL LDL Cholesterol, Calc (0.0-131.0) mg/dL VLDL Cholesterol, Calc (5.00-40.00) mg/dL HDL Cholesterol (40.00-60.00) mg/dL Urine Protein (Negative) Urine Glucose (UA) (Negative) Urine Ketones (Negative) Ur Leukocyte Esterase (Negative) Urine Bacteria (None) /hpf Urine Mucus (None) /hpf
--- NOTE | 2021-02-28 19:56 | P.DS ---
Providers Date of admission: 02/27/21 20:40 Expected date of discharge: 02/28/21 Attending physician: Shelton Iverson Consults: 02/27/21 23:13 Consult Physician Routine Consulting Provider: German Kenney Consult Reason/Comments: Chest pain Do you want consulting provider notified?: Yes Primary care physician: [facility] Course: Chief Complaint: Sharp chest pain This is a very pleasant 40-year-old patient who follows with Dr. Loo. Chronic stable medical conditions include diabetes, hypertension, hyperlipidemia. Patient stopped smoking 3 weeks ago. Yesterday she noticed a sharp pain in the center of the chest just lateral to the breast bone lasted for about a few seconds. Came back over 2 minutes. Then again lasted a short time then went away. Somewhat sharp. Did go through the back little bit. Then lingered on for dialysis for some time. No fever no chills. She is not sure she felt a little bit dizzy and mildly short of breath. No swelling of the legs. No pain in the calves. No prior cardiac history. Patient is very active. It did not radiate anywhere else. Decided to come in. Troponins were negative. EKG unremarkable. Cleared by: RG to follow-up as outpatient. Diagnosis acute costochondritis. Patient advised about weight loss. Lipitor and aspirin added. 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 Consultation: Dr. Vishal Clark from cardiology Past medical history to include: Diabetes, hypertension, hyperlipidemia, Social history: Patient smoked about half a pack a day for 24 years stopped 3 weeks ago. No alcohol. Works at the [employer]. with 3 children. Family history: Diabetes, hypertension, hyperlipidemia Physical examination: VITAL SIGNS: 98.3, 63, 17, 1 24 x 73, 97% room air GENERAL: BMI 38.3, sitting up, comfortable. EYES: Pupils equal. Conjunctiva normal. HEENT: External appearance of nose and ears normal, oral cavity grossly normal. NECK: JVD not raised; masses not palpable. HEART: First and second heart sounds are normal; no edema. LUNGS: Respiratory rate normal; clear to auscultation. ABDOMEN: Soft, nontender, liver spleen not palpable, no masses palpable. PSYCH: Alert and oriented x3; mood and affect normal. MUSCULOSKELETAL:No Clubbing/cyanosis;muscles-grossly intact. Point tenderness at the left reproducible point sternum to third one third down on the left side NEUROLOGICAL: Cranial nerves grossly intact; no facial asymmetry, power and sensation grossly intact. LYMPHATICS: No lymph nodes palpable in the axilla and neck INVESTIGATIONS, reviewed in the clinical context: White count 9.1 hemoglobin 13.9 platelets 224 sodium 136 potassium 4.1 creatinine 0.58 Troponin I less than 0.012, 0.028, less than 0.012 LDL 162 Coronavirus [PCR]: Not detected EKG tracing personally reviewed by me-normal sinus rhythm. Chest x-ray film personally reviewed by me-lungs clear CT chest angiogram: No PE. Interstitial infiltrate some. Assessment and plan: -New onset of Sharp localize anterior chest wall pain. Reproducible. Likely localize acute costochondritis. Given cardiac risk factors of diabetes hypertension hyperlipidemia smoking patient to be seen by cardiology. Troponin negative. Follow-up outpatient cardiology -Obesity BMI 38.3 Patient counseled about weight loss measures. -Diabetes mellitus type 2 Januvia 25 mg a day, metformin thousand gram twice a day -Essential hypertension Zestril 20 mg a day -Hyperlipidemia Lipitor 40mg a day Disposition: Home Plan - Discharge Summary Discharge Rx Participant: No New Discharge Prescriptions: New Acetaminophen Tab [Tylenol] 650 mg PO Q4HR PRN tab PRN Reason: Pain Atorvastatin [Lipitor] 40 mg PO HS #30 tablet Aspirin 81 mg PO DAILY #30 tab Continue metFORMIN HCL [Glucophage] 1,000 mg PO BID sitaGLIPtin [Januvia] 25 mg PO DAILY lisinopriL [Zestril] 20 mg PO DAILY Discharge Medication List lisinopriL [Zestril] 20 mg PO DAILY 01/21/21 [History] metFORMIN HCL [Glucophage] 1,000 mg PO BID 01/21/21 [History] sitaGLIPtin [Januvia] 25 mg PO DAILY 01/21/21 [History] Acetaminophen Tab [Tylenol] 650 mg PO Q4HR PRN tab 02/28/21 [Rx] Aspirin 81 mg PO DAILY #30 tab 02/28/21 [Rx] Atorvastatin [Lipitor] 40 mg PO HS #30 tablet 02/28/21 [Rx] Follow up Appointment(s)/Referral(s): Robert Loo MD [Primary Care Provider] - 1-2 days Osmany Clark MD [STAFF PHYSICIAN] - 1 Week Discharge Disposition: HOME SELF-CARE
== END 2021-02-28 12:38 | disposition home or self-care (01) ==
LOC: EC 19:08 → 6NMEDSUR 20:40
PROVIDERS: ADMIT Hospitalist; ATTEND Hospitalist
DX: R07.2 Precordial pain (principal); E11.9 Type 2 diabetes mellitus without complications; I10 Essential (primary) hypertension; E78.5 Hyperlipidemia, unspecified; E66.9 Obesity, unspecified; Z68.38 Body mass index [BMI] 38.0-38.9, adult; R79.89 Other specified abnormal findings of blood chemistry; E83.42 Hypomagnesemia; Z20.822 Contact with and (suspected) exposure to COVID-19; Z86.16 Personal history of COVID-19; Z87.891 Personal history of nicotine dependence; Z79.899 Other long term (current) drug therapy; Z79.82 Long term (current) use of aspirin; Z79.84 Long term (current) use of oral hypoglycemic drugs; Z90.49 Acquired absence of other specified parts of digestive tract; Z71.3 Dietary counseling and surveillance; Z83.3 Family history of diabetes mellitus; Z82.49 Family history of ischemic heart disease and other diseases of the circulatory system; Z80.9 Family history of malignant neoplasm, unspecified; Z83.438 Family history of other disorder of lipoprotein metabolism and other lipidemia
CPT/HCPCS: 96366 ×2; 96376; 96365; 96375; 99285; 36415; 93005; 85379; 83880; 80061; 80053; 83690; 83735; 84484 ×2; 85025; 85610; 81001; 81025; 83036; 87635; 71045; 71275; G0378 ×2; J2270; J2405; J3475; Q9967

== ENCOUNTER 2021-03-06 16:19 | Emergency (ER) | payer OTHER ==
[2021-03-06 16:29] VITALS: RESP 18; TEMP 98.6
--- NOTE | 2021-03-06 16:50 | XR ---
EXAMINATION TYPE: XR chest 2V DATE OF EXAM: 03/06/2021 COMPARISON: 02/27/2021 HISTORY: Short of breath TECHNIQUE: 2 views FINDINGS: Heart and mediastinum are normal. Lungs are clear. Diaphragm is normal. Bony thorax appears normal. IMPRESSION: Normal chest. No change.
[2021-03-06] MEDS ORDERED: SOTROVIMAB (EUA) 500 MG in SODIUM CHLORIDE 0.9% 100 ML IVPB ONE (17:45)
[2021-03-06] MEDS ORDERED: SODIUM CHLORIDE 0.9% 50 ML IVPB ONE (17:45)
--- NOTE | 2021-03-06 17:58 | US ---
EXAMINATION TYPE: US venous doppler duplex LE RT DATE OF EXAM: 03/06/2021 5:48 PM COMPARISON: NONE CLINICAL HISTORY: pain and numbness. SIDE PERFORMED: Right TECHNIQUE: The lower extremity deep venous system is examined utilizing real time linear array sonog miguel with graded compression, doppler sonography and color-flow sonography. VESSELS IMAGED: Common Femoral Vein Deep Femoral Vein Greater Saphenous Vein * Femoral Vein Popliteal Vein Small Saphenous Vein * Proximal Calf Veins (* superficial vessels) Right Leg: Negative for DVT IMPRESSION: No sign of deep vein thrombosis in the right leg.
[2021-03-06 18:30] LABS: Basophils # (A) 0.1 k/uL (0-0.2); Basophils % (A) 1 %; Eosinophils # (A) 0.4 k/uL (0-0.7); Eosinophils % (A) 4 %; HCT 42.4 % (34.0-46.0); HGB 14.4 gm/dL (11.4-16.0); Lymphocytes # (A) 2.6 k/uL (1.0-4.8); Lymphocytes % (A) 24 %; MCH 32.1 pg (25.0-35.0); MCV 94.4 fL (80.0-100.0); Mean Platelet Volume 8.1; Monocytes # (A) 0.4 k/uL (0-1.0); Monocytes % (A) 4 %; Neutrophils % (A) 66 %; Platelet Count 259 k/uL (150-450); RBC 4.49 m/uL (3.80-5.40); RDW 12.7 % (11.5-15.5); WBC 10.6 k/uL (3.8-10.6)
[2021-03-06 18:39] LABS: ALT 19 U/L (4-34); AST 23 U/L (14-36); African American GFR (CKD) >90 (>60 ml/min/1.73 sqM); Albumin 4.1 g/dL (3.5-5.0); Alkaline Phosphatase 67 U/L (38-126); Anion Gap 7 mmol/L; Blood Urea Nitrogen 11 mg/dL (7-17); Calcium 9.5 mg/dL (8.4-10.2); Carbon Dioxide 25 mmol/L (22-30); Chloride 104 mmol/L (98-107); Glucose 235 mg/dL (74-99); Non-African American GFR(CKD) >90 (>60 ml/min/1.73 sqM); Potassium 4.1 mmol/L (3.5-5.1); Sodium 136 mmol/L (137-145); Total Bilirubin 0.5 mg/dL (0.2-1.3); Total Protein 7.5 g/dL (6.3-8.2)
--- NOTE | 2021-03-06 18:45 | ED ---
General Adult HPI - General Chief complaint: Upper Respiratory Infection Stated complaint: possible pneumonia Time Seen by Provider: 03/06/21 17:00 Source: patient, RN notes reviewed, old records reviewed Mode of arrival: ambulatory Limitations: no limitations - History of Present Illness Initial comments: 40-year-old female presenting with cough, mild dyspnea and chest pain with recent diagnosis of coronavirus. Patient states that she had significant coughing spell yesterday evening when she developed some diffuse chest pain. She was seen approximately one week ago had workup for chest pain including serial cardiac enzymes, CT angiography which was negative for pulmonary embolism. At that time she did have ground glass opacity consistent with coronavirus pneumonia. Her test was negative at that time. However she did test positive as an outpatient on the . She has not previously vaccinated. She denies central radiating chest pain. - Related Data Home Medications Medication Instructions Recorded Confirmed lisinopriL [Zestril] 20 mg PO DAILY 01/21/21 03/06/21 metFORMIN HCL [Glucophage] 1,000 mg PO BID 01/21/21 03/06/21 sitaGLIPtin [Januvia] 25 mg PO DAILY 01/21/21 03/06/21 Previous Rx's Medication Instructions Recorded Acetaminophen Tab [Tylenol] 650 mg PO Q4HR PRN tab 02/28/21 Aspirin 81 mg PO DAILY #30 tab 02/28/21 Atorvastatin [Lipitor] 40 mg PO HS #30 tablet 02/28/21 Allergies Allergy/AdvReac Type Severity Reaction Status Date / Time No Known Allergies Allergy Verified 03/06/21 18:22 Review of Systems ROS Statement: Those systems with pertinent positive or pertinent negative responses have been documented in the HPI. ROS Other: All systems not noted in ROS Statement are negative. 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 History of Any Multi-Drug Resistant Organisms: None Reported Past Surgical History: Section, Cholecystectomy, Tubal Ligation Additional Past Surgical History / Comment(s): x2 Past Anesthesia/Blood Transfusion Reactions: No Reported Reaction Past Psychological History: No Psychological Hx Reported Smoking Status: Never smoker Past Alcohol Use History: None Reported Past Drug Use History: None Reported - Past Family History Mother Family Medical History: Diabetes Mellitus, Hyperlipidemia, Hypertension Father Family Medical History: Cancer, Diabetes Mellitus, Hyperlipidemia, Hypertension General Exam Limitations: no limitations General appearance: alert, in no apparent distress Head exam: Present: atraumatic, normocephalic Eye exam: Present: normal appearance, PERRL ENT exam: Present: normal exam Neck exam: Present: normal inspection. Absent: tenderness, meningismus Respiratory exam: Present: normal lung sounds bilaterally. Absent: respiratory distress, wheezes, rales Cardiovascular Exam: Present: regular rate, normal rhythm GI/Abdominal exam: Present: soft. Absent: distended, tenderness, guarding, rebound Extremities exam: Present: normal inspection, normal capillary refill. Absent: pedal edema Neurological exam: Present: alert, oriented X3, CN II-XII intact. Absent: motor sensory deficit Psychiatric exam: Present: normal affect, normal mood Skin exam: Present: warm, dry, intact, diaphoretic. Absent: cyanosis Course Vital Signs 03/06/21 16:25 Temperature 98.6 F Pulse Rate 86 Respiratory 18 Rate Blood Pressure 162/70 O2 Sat by Pulse 99 Oximetry Medical Decision Making - Medical Decision Making 40-year-old female with coronavirus, cough dyspnea and chest pain. Chest pain is atypical. Chest x-ray is negative for significant pneumonia there is some minimal right lower infiltrate. Ultrasound was ordered in triage as the patient complained of some right calf pain to rule out DVT. This was negative for DVT. She has normal CBC, normal CMP with the exception of hyperglycemia in a known diabetic. She is a candidate for monoclonal antibodies. She does agree to infusion in the emergency department. She will take vitamin C, vitamin D and sank. She will monitor her breathing and return with worsening or changing symptoms. - Lab Data Result diagrams: 03/06/21 18:13 03/06/21 18:13 Lab Results 03/06/21 03/06/21 Range/Units 18:13 18:13 WBC 10.6 (3.8-10.6) k/uL RBC 4.49 (3.80-5.40) m/uL Hgb 14.4 (11.4-16.0) gm/dL Hct 42.4 (34.0-46.0) % MCV 94.4 (80.0-100.0) fL MCH 32.1 (25.0-35.0) pg MCHC 34.0 (31.0-37.0) g/dL RDW 12.7 (11.5-15.5) % Plt Count 259 (150-450) k/uL MPV 8.1 Neutrophils % 66 % Lymphocytes % 24 % Monocytes % 4 % Eosinophils % 4 % Basophils % 1 % Neutrophils # 7.0 (1.3-7.7) k/uL Lymphocytes # 2.6 (1.0-4.8) k/uL Monocytes # 0.4 (0-1.0) k/uL Eosinophils # 0.4 (0-0.7) k/uL Basophils # 0.1 (0-0.2) k/uL Sodium 136 L (137-145) mmol/L Potassium 4.1 (3.5-5.1) mmol/L Chloride 104 (98-107) mmol/L Carbon Dioxide 25 (22-30) mmol/L Anion Gap 7 mmol/L BUN 11 (7-17) mg/dL Creatinine 0.74 (0.52-1.04) mg/dL Est GFR (CKD-EPI)AfAm >90 (>60 ml/min/1.73 sqM) Est GFR (CKD-EPI)NonAf >90 (>60 ml/min/1.73 sqM) Glucose 235 H (74-99) mg/dL Calcium 9.5 (8.4-10.2) mg/dL Total Bilirubin 0.5 (0.2-1.3) mg/dL AST 23 (14-36) U/L ALT 19 (4-34) U/L Alkaline Phosphatase 67 (38-126) U/L Total Protein 7.5 (6.3-8.2) g/dL Albumin 4.1 (3.5-5.0) g/dL Disposition Clinical Impression: COVID-19 Disposition: HOME SELF-CARE Condition: Fair Instructions (If sedation given, give patient instructions): Coronavirus Disease 2019 (COVID-19) Additional Instructions: Please quarantined according to CDC guidelines. Please take vitamin C, vitamin D, and zinc. Please monitor her breathing and return with worsening or changing symptoms. Please follow up with her primary care physician. Is patient prescribed a controlled substance at d/c from ED?: No Referrals: Robert Loo MD [Primary Care Provider] - 1-2 days Time of Disposition: 18:45
[2021-03-06 19:56] VITALS: BP 169/88; PULSE 65
== END 2021-03-06 20:03 | disposition home or self-care (01) ==
LOC: EC 16:19
DX: U07.1 COVID-19 (principal); I10 Essential (primary) hypertension
CPT/HCPCS: 36415; 80053; 85025; 71046; 93971; 99285; 96360; Q0247

== ENCOUNTER → 2021-04-07 | Outpatient (CLI) | payer OTHER ==
--- NOTE | 2021-04-07 13:23 | CONS ---
CONSULTATION DATE OF SERVICE: 04/07/2021 This 41-year-old lady has been evaluated in [facility] for excessive daytime sleepiness and multiple awakenings from sleep. HISTORY OF PRESENT ILLNESS/SLEEP-WAKE EVALUATION: Patient's usual sleep schedule on weekdays is between 11:30 p.m. and midnight until 5:30 or 5:40 a.m. on weekends from 2 a.m. until 9 or 10 a.m. She does have problems with falling asleep and has a TV set in the bedroom. She sleeps on the side and stomach positions. She has snoring if she is tired and awakenings from sleep up to 6 times with nocturia. No history of hypnagogic hallucinations, sleep paralysis or cataplexy. In the morning the patient wakes up tired, falling asleep during the day. She has episodes of irritability, depression and anxiety. [place] Sleepiness Scale increased to 13. She takes one nap on working days and two if she is not working, usually in the middle of the day. She does not feel refreshed after nap. She does not see vivid dreams during naps. PAST MEDICAL HISTORY: Positive for hypertension, diabetes, hyperlipidemia, peptic ulcer disease. PAST SURGICAL HISTORY: , recent endometrial ablation for bleeding. MEDICATIONS: 1. Metformin 1000 mg twice a day. 2. Januvia 100 mg once a day. 3. Lisinopril 20 mg once a day. SOCIAL HISTORY: Positive for smoking on and off up to 2 packs a day; quit recently. Alcohol consumption rarely. FAMILY HISTORY: Heart problems, arthritis, asthma, cancer. REVIEW OF SYSTEMS: Multiple awakenings from sleep, occasional snoring, sleepiness during the day. No fevers. No double vision. No recent chest pain. No shortness of breath. No abdominal pain. No bleeding episodes. No blood in the urine. No seizure episodes. PHYSICAL EXAM: GENERAL APPEARANCE: Pleasant 41-year-old lady without distress. VITAL SIGNS: BP 121/82, HR 75, RR 14, height 5 feet 4-3/4 inches, weight 242.4 pounds, body mass index 40.6, temperature 96.0, oxygen saturation at room air 98%. HEENT: PERRLA, EOMI, evaluation of oropharynx showed tongue protrudes midline. Extremely low position of soft palate; Mallampati IV. NECK: Supple, no JVD. Thyroid is not palpable. Neck is wide; 18 inches in circumference. LUNGS: Clear to percussion and to auscultation. Good air exchange. No wheezing or rhonchi. HEART: S1, S2 regular. No murmurs, gallops, or rubs. ABDOMEN: Obese. EXTREMITIES: No clubbing or cyanosis. SAFETY PROFESSIONAL: Awake, alert, and oriented X3. Cranial nerves 2 to 7 intact. There is no fasciculation or atrophy. noted. No focal deficits observed. IMPRESSION: 1. Multiple awakenings from sleep up to 6 times, extremely low position of soft palate, Mallampati IV, wide neck, 18 inches in circumference, sleepiness; obstructive sleep apnea-hypopnea syndrome, although snoring is rare, and no witnessed episodes of stopped breathing during sleep. 2. Sleepiness. [place] Sleepiness Scale increased to 13. Episodes of sleepiness while driving the car. 3. Obesity; BMI 40.6. 4. Hypertension. 5. Diabetes mellitus. 6. Hyperlipidemia. 7. History of peptic ulcer disease in the past. 8. Status post endometrial ablation for uterine bleeding 2 months ago. 9. Status post . PLAN: 1. Polysomnography for evaluation of patient's breathing during sleep. 2. Multiple sleep latency test if the sleep study is negative for obstructive sleep apnea, but I think the probability for that is low. 3. CPAP titration if sleep study is positive for obstructive sleep apnea-hypopnea syndrome. 4. Aggressive losing weight program. 5. Extreme precautions related to driving. No driving if feeling any sleepiness. The patient is aware of civil and criminal liability for unsafe driving. 6. Sleep hygiene with regular time in bed for at least 8 hours. Thank you very much for referring this patient for consultation. Sincerely, Chance Jolly MD, PhD, FAASM Diplomat of [employer] Sleep Medicine Board of [place] Associate of [facility] [place] MMODL / LUDYN: [id number] /
== END | disposition home or self-care (01) ==
LOC: SLEEP 11:15
PROVIDERS: ATTEND Internal Medicine
DX: G47.33 Obstructive sleep apnea (adult) (pediatric) (principal); E66.9 Obesity, unspecified; I10 Essential (primary) hypertension; E11.9 Type 2 diabetes mellitus without complications; Z68.41 Body mass index [BMI] 40.0-44.9, adult
CPT/HCPCS: 99211

== ENCOUNTER 2021-10-04 08:46 | Emergency (ER) | payer OTHER ==
[2021-10-04] MEDS ORDERED: ONDANSETRON 4 MG/2 ML VIAL IVP STA (09:22)
[2021-10-04] MEDS ORDERED: SODIUM CHLORIDE 0.9% 1,000 ML IV STA (09:22)
[2021-10-04] MEDS ORDERED: diphenhydrAMINE 50 MG/ML 1 ML VIAL IVP STA (09:22)
[2021-10-04] MEDS ORDERED: KETOROLAC 15 MG/ML 1 ML VIAL IVP STA (09:22)
--- NOTE | 2021-10-04 09:26 | ED ---
General Adult HPI - General Chief complaint: Headache Stated complaint: Headache Time Seen by Provider: 10/04/21 09:06 Source: patient Mode of arrival: ambulatory Limitations: no limitations - History of Present Illness Initial comments: Dictation was produced using Nitro PDF dictation software. please excuse any grammatical, word or spelling errors. Chief Complaint: 41-year-old female presents to the emergency department for chest pain and headache that started since yesterday History of Present Illness: Patient is a 41-year-old female she states that she started having headache and chest pain since yesterday. Patient states that she has pain in her occiput area that radiates to her angle of the mandible and goes into her chest. Patient states it feels like an ache not as much a pain. She states she is worried about her chest more than anything else. Patient has a history of chest pain and hypertension. Patient has any other comorbidities. Patient has not had a headache like this in the past. Denies any numbness di stally or paresthesias. No difficulty ambulating. No constitutional symptoms. No neck stiffness The ROS documented in this emergency department record has been reviewed and confirmed by me. Those systems with pertinent positive or negative responses have been documented in the HPI. All other systems are other negative and/or noncontributory. PHYSICAL EXAM: General Impression: Alert and oriented x3, not in acute distress HEENT: Normocephalic atraumatic, extra-ocular movements intact, pupils equal and reactive to light bilaterally, mucous membranes moist. Cardiovascular: Heart regular rate and rhythm Chest: Able to complete full sentences, no retractions, no tachypnea Abdomen: abdomen soft, non-tender, non-distended, no organomegaly Musculoskeletal: Pulses present and equal in all extremities, no peripheral edema Motor: no focal deficits noted Neurological: CN II-XII grossly intact, no focal motor or sensory deficits noted, negative Kernig's and negative Brudzinski's negative limits Skin: Intact with no visualized rashes Psych: Normal affect and mood ED course: 41-year-old female presents to the emergency Department with headache and chest pain. Vital signs upon arrival are within acceptable limits. Chest pain is very atypical. Lab evaluation obtained. CBC unremarkable. Metabolic panel within acceptable limits. Computed tomography scan of the head and C-spine and chest shows no acute processes. Patient given headache cocktail. We have I bedside at 10:50 AM final been stable medical condition. She states that her symptoms are improved. She is well-appearing. At this point is no clear cause of what's causing her symptoms. at the bedside feels that it's likely related to stress. Patient still for discharge advised follow-up with primary care doctor. EKG interpretation: Ventricular rate 74, sinus rhythm,. 149, QS 99, QTC 414. No [place] prolongation, no QTC prolongation, no ST or T-wave changes noted. Overall, this EKG is unremarkable - Related Data Home Medications Medication Instructions Recorded Confirmed lisinopriL [Zestril] 20 mg PO DAILY 01/21/21 03/06/21 metFORMIN HCL [Glucophage] 1,000 mg PO BID 01/21/21 03/06/21 sitaGLIPtin [Januvia] 25 mg PO DAILY 01/21/21 03/06/21 Previous Rx's Medication Instructions Recorded Acetaminophen Tab [Tylenol] 650 mg PO Q4HR PRN tab 02/28/21 Aspirin 81 mg PO DAILY #30 tab 02/28/21 Atorvastatin [Lipitor] 40 mg PO HS #30 tablet 02/28/21 Allergies Allergy/AdvReac Type Severity Reaction Status Date / Time No Known Allergies Allergy Verified 10/04/21 08:56 Review of Systems ROS Statement: Those systems with pertinent positive or pertinent negative responses have been documented in the HPI. ROS Other: All systems not noted in ROS Statement are negative. 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 History of Any Multi-Drug Resistant Organisms: None Reported Past Surgical History: Section, Cholecystectomy, Tubal Ligation Additional Past Surgical History / Comment(s): x2 Past Anesthesia/Blood Transfusion Reactions: No Reported Reaction Past Psychological History: No Psychological Hx Reported Smoking Status: Never smoker Past Alcohol Use History: None Reported Past Drug Use History: None Reported - Past Family History Mother Family Medical History: Diabetes Mellitus, Hyperlipidemia, Hypertension Father Family Medical History: Cancer, Diabetes Mellitus, Hyperlipidemia, Hypertension General Exam Limitations: no limitations Course Vital Signs 10/04/21 08:53 Temperature 98.0 F Pulse Rate 86 Respiratory 18 Rate Blood Pressure 147/85 O2 Sat by Pulse 98 Oximetry Medical Decision Making - Lab Data Result diagrams: 10/04/21 09:36 10/04/21 09:36 Lab Results 10/04/21 10/04/21 Range/Units 09:36 09:36 WBC 7.9 (3.8-10.6) k/uL RBC 4.77 (3.80-5.40) m/uL Hgb 14.8 (11.4-16.0) gm/dL Hct 44.3 (34.0-46.0) % MCV 92.9 (80.0-100.0) fL MCH 31.1 (25.0-35.0) pg MCHC 33.5 (31.0-37.0) g/dL RDW 12.8 (11.5-15.5) % Plt Count 224 (150-450) k/uL MPV 8.3 Neutrophils % 64 % Lymphocytes % 27 % Monocytes % 3 % Eosinophils % 4 % Basophils % 1 % Neutrophils # 5.1 (1.3-7.7) k/uL Lymphocytes # 2.1 (1.0-4.8) k/uL Monocytes # 0.3 (0-1.0) k/uL Eosinophils # 0.3 (0-0.7) k/uL Basophils # 0.1 (0-0.2) k/uL Sodium 137 (137-145) mmol/L Potassium 4.1 (3.5-5.1) mmol/L Chloride 101 (98-107) mmol/L Carbon Dioxide 23 (22-30) mmol/L Anion Gap 13 mmol/L BUN 10 (7-17) mg/dL Creatinine 0.58 (0.52-1.04) mg/dL Est GFR (CKD-EPI)AfAm >90 (>60 ml/min/1.73 sqM) Est GFR (CKD-EPI)NonAf >90 (>60 ml/min/1.73 sqM) Glucose 300 H (74-99) mg/dL Calcium 9.1 (8.4-10.2) mg/dL Magnesium 1.4 L (1.6-2.3) mg/dL Total Bilirubin 0.3 (0.2-1.3) mg/dL AST 70 H (14-36) U/L ALT 54 H (4-34) U/L Alkaline Phosphatase 78 (38-126) U/L Total Protein 7.5 (6.3-8.2) g/dL Albumin 4.4 (3.5-5.0) g/dL Disposition Clinical Impression: Acute headache Disposition: HOME SELF-CARE Condition: Good Instructions (If sedation given, give patient instructions): Acute Headache (ED) Is patient prescribed a controlled substance at d/c from ED?: No Referrals: Robert Loo MD [Primary Care Provider] - 1-2 days Time of Disposition: 10:49
[2021-10-04 10:05] LABS: Basophils # (A) 0.1 k/uL (0-0.2); Basophils % (A) 1 %; Eosinophils # (A) 0.3 k/uL (0-0.7); Eosinophils % (A) 4 %; HCT 44.3 % (34.0-46.0); HGB 14.8 gm/dL (11.4-16.0); Lymphocytes # (A) 2.1 k/uL (1.0-4.8); Lymphocytes % (A) 27 %; MCH 31.1 pg (25.0-35.0); MCHC 33.5 g/dL (31.0-37.0); MCV 92.9 fL (80.0-100.0); Mean Platelet Volume 8.3; Monocytes # (A) 0.3 k/uL (0-1.0); Monocytes % (A) 3 %; Neutrophils # (A) 5.1 k/uL (1.3-7.7); Neutrophils % (A) 64 %; Platelet Count 224 k/uL (150-450); RBC 4.77 m/uL (3.80-5.40); RDW 12.8 % (11.5-15.5); WBC 7.9 k/uL (3.8-10.6)
[2021-10-04 10:14] LABS: ALT 54 U/L (4-34); AST 70 U/L (14-36); African American GFR (CKD) >90 (>60 ml/min/1.73 sqM); Albumin 4.4 g/dL (3.5-5.0); Alkaline Phosphatase 78 U/L (38-126); Anion Gap 13 mmol/L; Blood Urea Nitrogen 10 mg/dL (7-17); Calcium 9.1 mg/dL (8.4-10.2); Carbon Dioxide 23 mmol/L (22-30); Chloride 101 mmol/L (98-107); Glucose 300 mg/dL (74-99); Magnesium 1.4 mg/dL (1.6-2.3); Non-African American GFR(CKD) >90 (>60 ml/min/1.73 sqM); Potassium 4.1 mmol/L (3.5-5.1); Sodium 137 mmol/L (137-145); Total Bilirubin 0.3 mg/dL (0.2-1.3); Total Protein 7.5 g/dL (6.3-8.2)
--- NOTE | 2021-10-04 10:31 | CT ---
EXAMINATION TYPE: CT brain l[facility] me[facility] DATE OF EXAM: 10/04/2021 COMPARISON: 11/30/2016 HISTORY: chest pain radiates to occiput CT DLP: 1764.[address] Brain: Unenhanced CT of the brain was performed. The ventricles, basal cisterns and sulci overlying the cerebral convexities demonstrate a normal appe arance. There is no evidence for intracranial hemorrhage or sulcal effacement. No mass effects are seen. If symptoms persist consider MRI. Osseous calvarium is intact. IMPRESSION: No acute intracranial process CT Cervical Spine: Unenhanced CT of the cervical spine was performed with bone and soft tissue window settings submitted . Coronal and sagittal reconstruction is obtained. There is normal alignment and prevertebral soft tissues. I do not see evidence for fracture or sublu xation. No significant degenerative changes are present. The lung apices are clear. IMPRESSION: No evidence for acute fracture or subluxation of the cervical spine.
--- NOTE | 2021-10-04 10:36 | CT ---
EXAMINATION TYPE: CT chest wo con DATE OF EXAM: 10/04/2021 COMPARISON: None HISTORY: chest pain radiates to occiput CT DLP: 547.[address] of the chest was performed with lung and mediastinal window settings submitted. The la ck of contrast limits evaluation of the vascular, mediastinal and parenchymal structures including th e upper abdomen. LUNGS: The lungs are clear and free of infiltrate. No atelectasis. No pulmonary nodule or mass is de tected. No pleural effusion. No CT evidence of interstitial lung disease. MEDIASTINUM/ALAN: Thoracic aorta is of normal caliber with limited evaluation given lack of contrast . The heart is not enlarged. No evidence for mediastinal mass. No lymph nodes greater than 1cm. 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 Right adrenal gland as visualized is w ithin normal limits. The gallbladder is surgically absent. OTHER: No significant other abnormality. IMPRESSION: 1. No significant abnormality of the chest appreciated.
[2021-10-04 10:57] VITALS: BP 138/78; PULSE 77; RESP 16; TEMP 98.2
== END 2021-10-04 11:00 | disposition home or self-care (01) ==
LOC: EC 08:46
DX: R51.9 Headache, unspecified (principal); I10 Essential (primary) hypertension; Z79.899 Other long term (current) drug therapy
CPT/HCPCS: 36415; 93005; 80053; 83735; 85025; 72125; 70450; 71250; 99284; 96374; 96375; 96361; J1200; J2405; J1885

== ENCOUNTER 2021-12-01 12:01 | Emergency (ER) | payer OTHER ==
[2021-12-01 12:19] VITALS: TEMP 98.1
[2021-12-01] MEDS ORDERED: diphenhydrAMINE 50 MG/ML 1 ML VIAL IM STA (13:39)
[2021-12-01] MEDS ORDERED: METOCLOPRAMIDE 5 MG/ML 2 ML VIAL IM STA (13:39)
--- NOTE | 2021-12-01 13:39 | ED ---
Headache HPI - General Chief Complaint: Headache Stated Complaint: headache, dizziness Time Seen by Provider: 12/01/21 13:00 Mode of arrival: ambulatory Limitations: no limitations - History of Present Illness Initial Comments: This patient is a 41-year-old woman who has been having headaches going back a couple of months now. There are diffuse, aching, they get somewhat better with Tylenol. They're coming by nausea and sometimes she is a little dizzy with them. She states she was seen here at the end of September, had a computed tomography scan, told that it was normal and then was going to follow-up. She states that her physician had been attempting to arrange an MRI but the insurance had not authorized yet. She is going to see a neurologist regarding headaches tomorrow. She states that the headache was a little worse than usual today, she took Tylenol and it did come down somewhat but not entirely relieved. No fever or chills. No neck pain or stiffness. No change in vision, hearing, speech, sensation or motor strength. MD Complaint: headache -: month(s) Onset Description: gradual Location: diffuse Severity: moderate Quality: aching, intermittent, similar to previous headaches Consistency: intermittent Improves With: medication Worsens With: none Context: occurred at rest Associated Symptoms: nausea Treatments Prior to Arrival: Acetaminophen - Related Data Home Medications Medication Instructions Recorded Confirmed metFORMIN HCL [Glucophage] 1,000 mg PO BID 01/21/21 12/01/21 Dapagliflozin Propanediol [Farxiga] 5 mg PO DAILY 12/01/21 12/01/21 lisinopriL [Zestril] 30 mg PO DAILY 12/01/21 12/01/21 sitaGLIPtin [Januvia] 100 mg PO DAILY 12/01/21 12/01/21 Allergies Allergy/AdvReac Type Severity Reaction Status Date / Time No Known Allergies Allergy Verified 12/01/21 14:16 Review of Systems ROS Statement: Those systems with pertinent positive or pertinent negative responses have been documented in the HPI. ROS Other: All systems not noted in ROS Statement are negative. Constitutional: Denies: fever, chills, weakness Eyes: Denies: vision change Respiratory: Denies: cough, dyspnea Cardiovascular: Denies: chest pain, palpitations Gastrointestinal: Reports: nausea. Denies: abdominal pain, vomiting Genitourinary: Denies: dysuria, hematuria Musculoskeletal: Denies: back pain Skin: Denies: rash Neurological: Reports: headache. 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 History of Any Multi-Drug Resistant Organisms: None Reported Past Surgical History: Section, Cholecystectomy, Tubal Ligation Additional Past Surgical History / Comment(s): x2 Past Anesthesia/Blood Transfusion Reactions: No Reported Reaction Past Psychological History: No Psychological Hx Reported Smoking Status: Never smoker Past Alcohol Use History: None Reported Past Drug Use History: None Reported - Past Family History Mother Family Medical History: Diabetes Mellitus, Hyperlipidemia, Hypertension Father Family Medical History: Cancer, Diabetes Mellitus, Hyperlipidemia, Hypertension General Exam Limitations: no limitations General appearance: alert, in no apparent distress Head exam: Present: atraumatic, normocephalic Eye exam: Present: normal appearance, PERRL, EOMI. Absent: scleral icterus, conjunctival injection, nystagmus ENT exam: Present: normal oropharynx Neck exam: Present: normal inspection, full ROM. Absent: meningismus Respiratory exam: Present: normal lung sounds bilaterally. Absent: respiratory distress, wheezes, rales, rhonchi, stridor Cardiovascular Exam: Present: regular rate, normal rhythm, normal heart sounds. Absent: systolic murmur, diastolic murmur, rubs, gallop Back exam: Present: normal inspection. Absent: tenderness Neurological exam: Present: alert, oriented X3, CN II-XII intact. Absent: motor sensory deficit Skin exam: Present: warm, dry, intact, normal color. Absent: rash Course Vital Signs 12/01/21 12:16 Temperature 98.1 F Pulse Rate 73 Respiratory 16 Rate Blood Pressure 126/80 O2 Sat by Pulse 97 Oximetry Disposition Clinical Impression: Headache Disposition: HOME SELF-CARE Condition: Good Instructions (If sedation given, give patient instructions): Acute Headache (ED) Is patient prescribed a controlled substance at d/c from ED?: No Referrals: Robert Loo MD [Primary Care Provider] - 1-2 days Stas Sarmiento MD [STAFF PHYSICIAN] - 1-2 days
[2021-12-01] MEDS ORDERED: KETOROLAC 15 MG/ML 1 ML VIAL IM STA (13:40)
[2021-12-01 15:44] VITALS: BP 121/60; PULSE 56; RESP 18
== END 2021-12-01 16:11 | disposition home or self-care (01) ==
LOC: EC 12:01
DX: R51.9 Headache, unspecified (principal); I10 Essential (primary) hypertension; Z79.811 Long term (current) use of aromatase inhibitors
CPT/HCPCS: 99283; J1200; J2765; J1885

== ENCOUNTER 2022-01-03 01:16 | Emergency (ER) | payer OTHER ==
[2022-01-03 01:23] VITALS: BP 120/66; PULSE 78; RESP 16; TEMP 97.4
[2022-01-03] MEDS ORDERED: dexAMETHasone 2 MG TAB PO STA (02:47)
--- NOTE | 2022-01-03 02:51 | ED ---
General Adult HPI - General Chief complaint: ENT Stated complaint: Sore throat Time Seen by Provider: 01/03/22 01:25 Source: patient Mode of arrival: ambulatory Limitations: no limitations - History of Present Illness Initial comments: 41-year-old female presents emergency Department with report of intermittent sore throat for the past 3 weeks. States that her sore throat is worse at night when she attempts to go to sleep. She has been using TheraFlu which has been helping her symptoms. She is seen in the emergency department with her son who is also sick with a cough. Denies current sore throat pain. No other symptoms to include earache, cough, chest pain or shortness of breath. No reported fevers. Denies difficulty swallowing. No drooling, trismus or hoarseness. No other alleviating, partition notcher modifying factors - Related Data Home Medications Medication Instructions Recorded Confirmed metFORMIN HCL [Glucophage] 1,000 mg PO BID 01/21/21 12/01/21 Dapagliflozin Propanediol [Farxiga] 5 mg PO DAILY 12/01/21 12/01/21 lisinopriL [Zestril] 30 mg PO DAILY 12/01/21 12/01/21 sitaGLIPtin [Januvia] 100 mg PO DAILY 12/01/21 12/01/21 Allergies Allergy/AdvReac Type Severity Reaction Status Date / Time No Known Allergies Allergy Verified 01/03/22 01:20 Review of Systems ROS Statement: Those systems with pertinent positive or pertinent negative responses have been documented in the HPI. ROS Other: All systems not noted in ROS Statement are negative. 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 History of Any Multi-Drug Resistant Organisms: None Reported Past Surgical History: Section, Cholecystectomy, Tubal Ligation Additional Past Surgical History / Comment(s): x2 Past Anesthesia/Blood Transfusion Reactions: No Reported Reaction Past Psychological History: No Psychological Hx Reported Smoking Status: Never smoker Past Alcohol Use History: None Reported Past Drug Use History: None Reported - Past Family History Mother Family Medical History: Diabetes Mellitus, Hyperlipidemia, Hypertension Father Family Medical History: Cancer, Diabetes Mellitus, Hyperlipidemia, Hypertension General Exam Limitations: no limitations General appearance: alert, in no apparent distress Head exam: Present: atraumatic, normocephalic, normal inspection Eye exam: Present: normal appearance, PERRL, EOMI. Absent: scleral icterus, conjunctival injection, periorbital swelling ENT exam: Present: normal exam, mucous membranes moist, other (no peritonsillar abscess. cobblestoning of posterior pharynx. no exudate. no drooling, trismus, hoarseness or stridor) Course Vital Signs 01/03/22 01:20 Temperature 97.4 F L Pulse Rate 78 Respiratory 16 Rate Blood Pressure 120/66 O2 Sat by Pulse 97 Oximetry Medical Decision Making - Medical Decision Making On arrival patient was placed into ATP. Physical examination is performed. She is swabbed for strep which is negative. She was given a dose of Decadron in the emergency department. Patient will be discharged home. Instructed to increased warmth fluid intake, utilize throat lozenges. Follow up with her primary care doctor and return for any new or worsening symptoms. Patient does not demonstrate any concerning signs of Damion angina, peritonsillar abscess. No voice changes. Patient was agreeable to this plan and she was discharged home in stable condition - Lab Data Lab Results 01/03/22 Range/Units 01:23 Group A Strep (PCR) NOT DETECTED (Not Detectd) Disposition Clinical Impression: Viral pharyngitis Disposition: HOME SELF-CARE Condition: Stable Instructions (If sedation given, give patient instructions): Pharyngitis (ED) Additional Instructions: Your given a dose of steroids in the emergency department. Continue taking the TheraFlu as needed. Follow up with your primary care doctor return for any new or worsening symptoms Is patient prescribed a controlled substance at d/c from ED?: No Referrals: Robert Loo MD [Primary Care Provider] - 1-2 days Time of Disposition: 02:51
== END 2022-01-03 03:00 | disposition home or self-care (01) ==
LOC: EC 01:16
DX: J02.8 Acute pharyngitis due to other specified organisms (principal); I10 Essential (primary) hypertension; Z90.49 Acquired absence of other specified parts of digestive tract; Z79.899 Other long term (current) drug therapy
CPT/HCPCS: 87651; 99283; J8540

== ENCOUNTER → 2022-02-17 | Outpatient (CLI) | payer OTHER ==
--- NOTE | 2022-02-17 11:00 | US ---
EXAMINATION TYPE: US abdomen limited DATE OF EXAM: 02/17/2022 COMPARISON: NONE CLINICAL HISTORY: 41-year-old female N83.209 ovarian cyst, R74.01elevated liver levels. Cholecystecto my. TECHNIQUE: Multiple sonographic images of the right upper quadrant are obtained. 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 Remainder obscured by bowel gas shado wing. Liver: enlarged, heterogenous and attenuating. No focal lesion seen. Gallbladder: Surgically absent Evidence for sonographic Bauman's sign: no CBD: Mildly dilated. Right Kidney: wnl IMPRESSION: 1. Hepatomegaly (19.2 cm) with moderate to severe hepatic steatosis. Correlate with LFTs, lipid profi le, and patient risk factors. 2. Mildly dilated bile duct at 7 mm, acceptable given postcholecystectomy status.
--- NOTE | 2022-02-17 12:19 | US ---
EXAMINATION TYPE: US pelvis complete transvag DATE OF EXAM: 02/17/2022 COMPARISON: 01/13/2021 CLINICAL HISTORY: 41-year-old female N83.209 ovarian cyst, R74.01elevated liver levels. 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 Transabdominal sonographic images of the pelvis were acquired. Transvaginal sono graphic images were medically necessary to better assess the following anatomy: Ut and ovaries Date of LMP: Jan 31, 2022 FINDINGS: EXAM MEASUREMENTS: Uterus: 12.6 x 7.5 x 6.2 cm Endometrial Stripe: not discernable Right Ovary: 3.9 x 2.7 x 2.7 cm for a volume of 14.7 mL. Left Ovary: 5.2 x 4.1 x 2.9 cm enlarged with a volume of 32.2 mL TV approach had too much bowel gas obscuring pelvic organs and patient was tender to pressure 1. Uterus: Anteverted. Myometrium is heterogeneous and difficult to penetrate. Transvaginal scanni ng is very limited. Small cervical nabothian cysts are demonstrated. 2. Endometrium: unable to discern, h/o ablation 3. Right Ovary: Round echogenic lesion = 2.0 x 1.7 x 1.7cm versus 1.7 cm, previously. 4. Left Ovary: multiple cysts, largest = 2.6 x 3.2 x 2.4cm. Single dominant cyst measuring 4.4 cm, p reviously. 5. Bilateral Adnexa: wnl 6. Posterior cul-de-sac: wnl IMPRESSION: 1. Limited detailed assessment of the uterus. Transvaginal scanning was essentially nondiagnostic due to bowel gas. 2. Prominent cyst/follicular change in the left ovary. Largest measures 3.2 cm. There is only a solit kathy cyst measuring 4.4 cm on the prior exam. Consider 6 month follow-up to reassess. 3. Redemonstrated dermoid of the right ovary. Minimally larger at 2.0 cm versus 1.7 cm, previously.
== END | disposition home or self-care (01) ==
LOC: RADUSWWP 08:01
PROVIDERS: ATTEND Family Medicine
DX: K76.0 Fatty (change of) liver, not elsewhere classified (principal); K83.8 Other specified diseases of biliary tract; N83.202 Unspecified ovarian cyst, left side; N88.8 Other specified noninflammatory disorders of cervix uteri; R74.01 Elevation of levels of liver transaminase levels
CPT/HCPCS: 76705; 76830; 76856

== ENCOUNTER 2022-05-22 17:49 | Emergency (ER) | payer OTHER ==
[2022-05-22 18:00] VITALS: TEMP 98.1
[2022-05-22] MEDS ORDERED: KETOROLAC 15 MG/ML 1 ML VIAL IM STA (18:32)
[2022-05-22] MEDS ORDERED: MECLIZINE 12.5 MG TAB PO STA (18:32)
[2022-05-22 18:47] LABS: Basophils # (A) 0.1 k/uL (0-0.2); Basophils % (A) 1 %; Eosinophils # (A) 0.4 k/uL (0-0.7); Eosinophils % (A) 4 %; HCT 39.3 % (34.0-46.0); HGB 13.8 gm/dL (11.4-16.0); Lymphocytes # (A) 2.4 k/uL (1.0-4.8); Lymphocytes % (A) 25 %; MCH 32.1 pg (25.0-35.0); MCHC 35.1 g/dL (31.0-37.0); MCV 91.6 fL (80.0-100.0); Mean Platelet Volume 7.8; Monocytes # (A) 0.3 k/uL (0-1.0); Monocytes % (A) 3 %; Neutrophils # (A) 6.4 k/uL (1.3-7.7); Neutrophils % (A) 67 %; Platelet Count 252 k/uL (150-450); RBC 4.29 m/uL (3.80-5.40); RDW 12.6 % (11.5-15.5); WBC 9.6 k/uL (3.8-10.6)
--- NOTE | 2022-05-22 19:01 | XR ---
EXAMINATION TYPE: XR chest 2V DATE OF EXAM: 05/22/2022 6:47 PM COMPARISON: Chest radiographs from 03/06/2021 TECHNIQUE: XR chest 2V Frontal and lateral views of the chest. CLINICAL INDICATION:Female, 42 years old with history of dizziness; FINDINGS: Lungs/Pleura: There is no evidence of pleural effusion, focal consolidation, or pneumothorax. Pulmonary vascularity: Unremarkable. Heart/mediastinum: Cardiomediastinal silhouette is unremarkable. Musculoskeletal: No acute osseous pathology. IMPRESSION: No acute cardiopulmonary disease/process.
[2022-05-22 19:10] LABS: Appearance,Urine Clear (Clear); Bilirubin,Urine Negative (Negative); Blood,Urine Negative (Negative); Color,Urine Yellow; Glucose,Urine (UA) Negative (Negative); Ketones,Urine Negative (Negative); Leukocyte Esterase,Urine Negative (Negative); Mucus,Urine Rare /hpf; Nitrite,Urine Negative (Negative); Protein,Urine 1+ (Negative); RBC,Urine 2 /hpf (0-5); Specific Gravity,Urine 1.024 (1.001-1.035); Squamous Epithelial Cell,Urine 3 /hpf (0-4); Urobilinogen,Urine <2.0 mg/dL (<2.0); WBC,Urine 2 /hpf (0-5)
[2022-05-22 19:13] LABS: ALT 27 U/L (4-34); AST 34 U/L (14-36); African American GFR (CKD) >90 (>60 ml/min/1.73 sqM); Alkaline Phosphatase 80 U/L (38-126); Anion Gap 8 mmol/L; Blood Urea Nitrogen 10 mg/dL (7-17); Calcium 9.2 mg/dL (8.4-10.2); Carbon Dioxide 25 mmol/L (22-30); Chloride 106 mmol/L (98-107); Glucose 142 mg/dL (74-99); Non-African American GFR(CKD) >90 (>60 ml/min/1.73 sqM); Potassium 3.8 mmol/L (3.5-5.1); Sodium 139 mmol/L (137-145); Total Bilirubin 0.4 mg/dL (0.2-1.3)
--- NOTE | 2022-05-22 19:19 | ED ---
General Adult HPI - General Chief complaint: Back Pain/Injury Stated complaint: Back Pain Time Seen by Provider: 05/22/22 18:01 Source: patient, RN notes reviewed Mode of arrival: ambulatory Limitations: no limitations - History of Present Illness Initial comments: 42-year-old female presents to the emergency department with chief complaint of right flank pain. She states that it started about 3 days ago. No known injury. She states that the pain is worse with any stretching movement and better with rest. She reports no radiation of the pain. She states that she did not take anything today for pain but has been taking Tylenol and Motrin the past 2 days as needed for pain. She also reports that the past 2 days she has noticed dizziness that feels like the room is spinning lasting for a few seconds at a time. It is worse with head movements and better with rest. States that she had this feeling multiple times in the past 2 days but never before this. She also reports headache that was not relieved with medication. Patient does not have a history of vertigo. Denies urinary frequency, dysuria and denies fever. Denies shortness of breath, recent illness, abdominal pain, chest pain. Past medical history includes hypertension, hyperlipidemia, diabetes. - Related Data Home Medications Medication Instructions Recorded Confirmed metFORMIN HCL [Glucophage] 1,000 mg PO BID 01/21/21 12/01/21 lisinopriL [Zestril] 30 mg PO DAILY 12/01/21 12/01/21 Atorvastatin [Lipitor] 20 mg PO DAILY 05/22/22 05/22/22 Dulaglutide [Trulicity] 1.5 mg SQ TH 05/22/22 05/22/22 Allergies Allergy/AdvReac Type Severity Reaction Status Date / Time No Known Allergies Allergy Verified 05/22/22 19:17 Review of Systems ROS Statement: Those systems with pertinent positive or pertinent negative responses have been documented in the HPI. ROS Other: All systems not noted in ROS Statement are negative. 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 History of Any Multi-Drug Resistant Organisms: None Reported Past Surgical History: Section, Cholecystectomy, Tubal Ligation Additional Past Surgical History / Comment(s): x2 Past Anesthesia/Blood Transfusion Reactions: No Reported Reaction Past Psychological History: No Psychological Hx Reported Smoking Status: Never smoker Past Alcohol Use History: None Reported Past Drug Use History: None Reported - Past Family History Mother Family Medical History: Diabetes Mellitus, Hyperlipidemia, Hypertension Father Family Medical History: Cancer, Diabetes Mellitus, Hyperlipidemia, Hypertension General Exam Limitations: no limitations General appearance: alert, in no apparent distress Head exam: Present: atraumatic, normocephalic, normal inspection Eye exam: Present: normal appearance, PERRL, EOMI, nystagmus (left and right bilateral nystagmus ). Absent: scleral icterus, conjunctival injection, periorbital swelling ENT exam: Present: normal exam, mucous membranes moist Neck exam: Present: normal inspection. Absent: tenderness, meningismus, lymphadenopathy Respiratory exam: Present: normal lung sounds bilaterally. Absent: respiratory distress, wheezes, rales, rhonchi, stridor Cardiovascular Exam: Present: regular rate, normal rhythm, normal heart sounds. Absent: systolic murmur, diastolic murmur, rubs, gallop, clicks GI/Abdominal exam: Present: soft, normal bowel sounds. Absent: distended, tenderness, guarding, rebound, rigid Extremities exam: Present: normal inspection, full ROM, normal capillary refill. Absent: tenderness, pedal edema, joint swelling, calf tenderness Back exam: Present: normal inspection, tenderness (ttp right flank ). Absent: vertebral tenderness Neurological exam: Present: alert, oriented X3, CN II-XII intact, normal gait Psychiatric exam: Present: normal affect, normal mood Skin exam: Present: warm, dry, intact, normal color. Absent: rash Course Vital Signs 05/22/22 17:57 Temperature 98.1 F Pulse Rate 80 Respiratory 20 Rate Blood Pressure 151/94 O2 Sat by Pulse 99 Oximetry Medical Decision Making - Medical Decision Making Was pt. sent in by a medical professional or institution (, PA, FEATHER DUSTER WINDER, urgent care, hospital, or alf...) When possible be specific @ -No Did you speak to anyone other than the patient for history (EMS, parent, family, police, friend...)? What history was obtained from this source @ -No Did you review nursing and triage notes (agree or disagree)? Why? @ -I reviewed and agree with nursing and triage notes Were old charts reviewed (outside hosp., previous admission, EMS record, old EKG, old radiological studies, urgent care reports/EKG's, alf records)? Report findings @ -No old charts were reviewed Differential Diagnosis (chest pain, altered mental status, abdominal pain women, abdominal pain men, vaginal bleeding, weakness, fever, dyspnea, syncope, headache, dizziness, GI bleed, back pain, seizure, CVA, palpatations, mental health, musculoskeletal)? @ -Differential Dizziness: Benign paroxysmal positional Vertigo, Menieres disease, otitis media, acoustic neuroma, vertebrobasilar insufficiency, cerebellar stroke, encephalitis, hypovolemic, arrhythmia, coronary artery syndrome, anemia, this is not meant to be an all-inclusive list EKG interpreted by me (3pts min.). @ -EKG was reviewed by myself and Dr. Pantoja at 1910 shows sinus rhythm rate 63, OK 162, QRS 109, QTQTc [id number] X-rays interpreted by me (1pt min.). @ -None done CT interpreted by me (1pt min.). @ -CT showed no acute intracranial process U/S interpreted by me (1pt. min.). @ -None done What testing was considered but not performed or refused? (CT, X-rays, U/S, labs)? Why? @ -None What meds were considered but not given or refused? Why? @ -None Did you discuss the management of the patient with other professionals (professionals i.e. , PA, FEATHER DUSTER WINDER, lab, RT, psych nurse, social media sr strategy manager, stitcher operator, teacher, delinquency prevention officer, telehealth case manager)? Give summary @ -No Was smoking cessation discussed for >3mins.? @ -No Was critical care preformed (if so, how long)? @ -No Were there social determinants of health that impacted care today? How? (Homelessness, low income, unemployed, alcoholism, drug addiction, transportation, low edu. Level, literacy, decrease access to med. care, [facility], rehab)? @ -No Was there de-escalation of care discussed even if they declined (Discuss DNR or withdrawal of care, Hospice)? DNR status @ -No What co-morbidities impacted this encounter? (DM, HTN, Smoking, COPD, CAD, Cancer, CVA, ARF, Chemo, Hep., AIDS, mental health diagnosis, sleep apnea, morbid obesity)? @ -None Was patient admitted / discharged? Hospital course, mention meds given and route, prescriptions, significant lab abnormalities, going to OR and other pertinent info. @ -Discharge. Patient presented to the emergency department with back pain and dizziness and headache 3 days. Patient is afebrile. She denies injury. CBC and CMP were obtained which were within normal limits. UA showed no leukocytes, nitrates, blood. Patient was complaining of vertigo-like symptoms when she moved her head. She was administered meclizine which reduced her symptoms. Discussed with patient that she is neurologically intact and that suspicion for any acute neurologic process was low, but patient wanted to go forward with CT brain. CT brain showed no acute intracranial process. Lidocaine patch was placed on patient's right flank which improved her back pain. Advised to follow-up with her primary care. Patient discharged in stable condition Undiagnosed new problem with uncertain prognosis? @ -No Drug Therapy requiring intensive monitoring for toxicity (Heparin, Nitro, Insulin, Cardizem)? @ -No Were any procedures done? @ -No Diagnosis/symptom? @ -back pain Acute, or Chronic, or Acute on Chronic? @ -acute Uncomplicated (without systemic symptoms) or Complicated (systemic symptoms)? @ -Uncomplicated Side effects of treatment? @ -No Exacerbation, Progression, or Severe Exacerbation? @ -No Poses a threat to life or bodily function? How? (Chest pain, [place], [place], pneumonia, PE, COPD, DKA, ARF, appy, cholecystitis, CVA, Diverticulitis, Homicidal, Suicidal, threat to staff... and all critical care pts) @ -No Diagnosis/symptom? @ -vertigo Acute, or Chronic, or Acute on Chronic? @ -Acute Uncomplicated (without systemic symptoms) or Complicated (systemic symptoms)? @ -Uncomplicated Side effects of treatment? @ -none Exacerbation, Progression, or Severe Exacerbation] @ -no Poses a threat to life or bodily function? @ -no - Lab Data Result diagrams: 05/22/22 18:37 05/22/22 18:37 Lab Results 05/22/22 05/22/22 05/22/22 Range/Units 18:37 18:37 18:37 WBC 9.6 (3.8-10.6) k/uL RBC 4.29 (3.80-5.40) m/uL Hgb 13.8 (11.4-16.0) gm/dL Hct 39.3 (34.0-46.0) % MCV 91.6 (80.0-100.0) fL MCH 32.1 (25.0-35.0) pg MCHC 35.1 (31.0-37.0) g/dL RDW 12.6 (11.5-15.5) % Plt Count 252 (150-450) k/uL MPV 7.8 Neutrophils % 67 % Lymphocytes % 25 % Monocytes % 3 % Eosinophils % 4 % Basophils % 1 % Neutrophils # 6.4 (1.3-7.7) k/uL Lymphocytes # 2.4 (1.0-4.8) k/uL Monocytes # 0.3 (0-1.0) k/uL Eosinophils # 0.4 (0-0.7) k/uL Basophils # 0.1 (0-0.2) k/uL Sodium 139 (137-145) mmol/L Potassium 3.8 (3.5-5.1) mmol/L Chloride 106 (98-107) mmol/L Carbon Dioxide 25 (22-30) mmol/L Anion Gap 8 mmol/L BUN 10 (7-17) mg/dL Creatinine 0.50 L (0.52-1.04) mg/dL Est GFR (CKD-EPI)AfAm >90 (>60 ml/min/1.73 sqM) Est GFR (CKD-EPI)NonAf >90 (>60 ml/min/1.73 sqM) Glucose 142 H (74-99) mg/dL Calcium 9.2 (8.4-10.2) mg/dL Total Bilirubin 0.4 (0.2-1.3) mg/dL AST 34 (14-36) U/L ALT 27 (4-34) U/L Alkaline Phosphatase 80 (38-126) U/L Troponin I (0.000-0.034) ng/mL Total Protein 7.0 (6.3-8.2) g/dL Albumin 4.0 (3.5-5.0) g/dL Urine Color Yellow Urine Appearance Clear (Clear) Urine pH 6.0 (5.0-8.0) Ur Specific [place] 1.024 (1.001-1.035) Urine Protein 1+ H (Negative) Urine Glucose (UA) Negative (Negative) Urine Ketones Negative (Negative) Urine Blood Negative (Negative) Urine Nitrite Negative (Negative) Urine Bilirubin Negative (Negative) Urine Urobilinogen <2.0 (<2.0) mg/dL Ur Leukocyte Esterase Negative (Negative) Urine RBC 2 (0-5) /hpf Urine WBC 2 (0-5) /hpf Ur Squamous Epith Cells 3 (0-4) /hpf Urine Mucus Rare H (None) /hpf Urine HCG, Qual (Not Detectd) 05/22/22 05/22/22 Range/Units 18:37 18:37 WBC (3.8-10.6) k/uL RBC (3.80-5.40) m/uL Hgb (11.4-16.0) gm/dL Hct (34.0-46.0) % MCV (80.0-100.0) fL MCH (25.0-35.0) pg MCHC (31.0-37.0) g/dL RDW (11.5-15.5) % Plt Count (150-450) k/uL MPV Neutrophils % % Lymphocytes % % Monocytes % % Eosinophils % % Basophils % % Neutrophils # (1.3-7.7) k/uL Lymphocytes # (1.0-4.8) k/uL Monocytes # (0-1.0) k/uL Eosinophils # (0-0.7) k/uL Basophils # (0-0.2) k/uL Sodium (137-145) mmol/L Potassium (3.5-5.1) mmol/L Chloride (98-107) mmol/L Carbon Dioxide (22-30) mmol/L Anion Gap mmol/L BUN (7-17) mg/dL Creatinine (0.52-1.04) mg/dL Est GFR (CKD-EPI)AfAm (>60 ml/min/1.73 sqM) Est GFR (CKD-EPI)NonAf (>60 ml/min/1.73 sqM) Glucose (74-99) mg/dL Calcium (8.4-10.2) mg/dL Total Bilirubin (0.2-1.3) mg/dL AST (14-36) U/L ALT (4-34) U/L Alkaline Phosphatase (38-126) U/L Troponin I <0.012 (0.000-0.034) ng/mL Total Protein (6.3-8.2) g/dL Albumin (3.5-5.0) g/dL Urine Color Urine Appearance (Clear) Urine pH (5.0-8.0) Ur Specific [place] (1.001-1.035) Urine Protein (Negative) Urine Glucose (UA) (Negative) Urine Ketones (Negative) Urine Blood (Negative) Urine Nitrite (Negative) Urine Bilirubin (Negative) Urine Urobilinogen (<2.0) mg/dL Ur Leukocyte Esterase (Negative) Urine RBC (0-5) /hpf Urine WBC (0-5) /hpf Ur Squamous Epith Cells (0-4) /hpf Urine Mucus (None) /hpf Urine HCG, Qual Not Detected (Not Detectd) Disposition Clinical Impression: Strain of lumbar region, Vertigo Disposition: HOME SELF-CARE Condition: Stable Instructions (If sedation given, give patient instructions): Acute Low Back Pain (ED) Additional Instructions: Please return to the Emergency Department if symptoms worsen or any other concerns. Is patient prescribed a controlled substance at d/c from ED?: No Referrals: Robert Loo MD [Primary Care Provider] - 1-2 days Time of Disposition: 21:25
[2022-05-22] MEDS ORDERED: LIDOCAINE 5% PATCH TOPICAL STA (19:49)
--- NOTE | 2022-05-22 21:09 | CT ---
EXAMINATION TYPE: CT brain wo con CT DLP: 1158.4 mGycm, Automated exposure control for dose reduction was used. DATE OF EXAM: 05/22/2022 8:45 PM COMPARISON: 10/04/2021 CLINICAL INDICATION:Female, 42 years old with history of vertigo, headache, Headache, vertigo, unclea r vision TECHNIQUE: Brain: Axial CT images of the brain were obtained with coronal and sagittal reformats created and rev iewed. Contrast used: None. Oral contrast used: None. FINDINGS: Brain: Extra-axial spaces: No abnormal extra-axial fluid collections. Ventricular system: Within normal limits Cerebral parenchyma: No acute intraparenchymal hemorrhage or mass effect. The olson-white junction is well differentiated. Cerebellum: Unremarkable. Mass effect: No evidence of midline shift. Intracranial vasculature: unremarkable Soft tissues: Normal. Calvarium/osseous structures: No depressed skull fracture. Paranasal sinuses and mastoid air cells: Mild scattered paranasal sinus disease. Visualized orbits: Orbital contents are intact. IMPRESSION: No acute intracranial process.
[2022-05-22 21:32] VITALS: BP 150/85; PULSE 89; RESP 18
== END 2022-05-22 21:37 | disposition home or self-care (01) ==
LOC: EC 17:49
DX: S39.012A Strain of muscle, fascia and tendon of lower back, initial encounter (principal); R42 Dizziness and giddiness; I10 Essential (primary) hypertension; E11.9 Type 2 diabetes mellitus without complications; E78.5 Hyperlipidemia, unspecified; Z79.84 Long term (current) use of oral hypoglycemic drugs; Z79.899 Other long term (current) drug therapy; X50.9XXA Other and unspecified overexertion or strenuous movements or postures, initial encounter
CPT/HCPCS: 36415; 80053; 84484; 85025; 81001; 81025; 71046; 70450; 99284; 96372; J1885

== ENCOUNTER 2022-10-09 23:35 | Emergency (ER) | payer OTHER ==
[2022-10-09 23:54] VITALS: BP 160/86; PULSE 65; RESP 18; TEMP 98.3
[2022-10-10] MEDS ORDERED: AMOXIC-POT CLAV 875-125MG 1 EACH TAB PO STA (00:09)
[2022-10-10] MEDS ORDERED: HYDROmorphone 0.5 MG/0.5 ML SYRINGE IM STA (00:23)
[2022-10-10] MEDS ORDERED: ACET/COD 300 MG/30 MG STARTER PACK 6 TAB BTL PO STA (00:23)
--- NOTE | 2022-10-10 00:37 | ED ---
ENT HPI - General Chief complaint: Dental/Oral Stated complaint: Tooth pain Time Seen by Provider: 10/10/22 00:08 Source: patient Mode of arrival: ambulatory Limitations: no limitations - History of Present Illness Initial comments: Patient is a 42-year-old female who presents the emergency department for dental pain. Patient went to the dentist last week she was told she was going to be prescribed antibiotics but they were never sent to the pharmacy. Patient has worsening pain in her right lower molar. No facial swelling, fever, chills, nausea, vomiting. - Related Data Home Medications Medication Instructions Recorded Confirmed metFORMIN HCL [Glucophage] 1,000 mg PO BID 01/21/21 05/22/22 lisinopriL [Zestril] 30 mg PO DAILY 12/01/21 05/22/22 Atorvastatin [Lipitor] 20 mg PO DAILY 05/22/22 05/22/22 Dulaglutide [Trulicity] 1.5 mg SQ TH 05/22/22 05/22/22 Previous Rx's Medication Instructions Recorded Amoxic-Pot Clav 875-125Mg 1 tab PO Q12HR #14 tab 10/10/22 [Augmentin 875-125] Allergies Allergy/AdvReac Type Severity Reaction Status Date / Time No Known Allergies Allergy Verified 10/09/22 23:52 Review of Systems ROS Statement: Those systems with pertinent positive or pertinent negative responses have been documented in the HPI. ROS Other: All systems not noted in ROS Statement are negative. 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 History of Any Multi-Drug Resistant Organisms: None Reported Past Surgical History: Section, Cholecystectomy, Tubal Ligation Additional Past Surgical History / Comment(s): x2 Past Anesthesia/Blood Transfusion Reactions: No Reported Reaction Past Psychological History: No Psychological Hx Reported Smoking Status: Never smoker Past Alcohol Use History: None Reported Past Drug Use History: None Reported - Past Family History Mother Family Medical History: Diabetes Mellitus, Hyperlipidemia, Hypertension Father Family Medical History: Cancer, Diabetes Mellitus, Hyperlipidemia, Hypertension General Exam Limitations: no limitations General appearance: alert Eye exam: Present: normal appearance, PERRL, EOMI. Absent: scleral icterus, conjunctival injection, periorbital swelling ENT exam: Present: other (No facial swelling). Absent: normal oropharynx (Fractured right molar. Surrounding gingiva tender erythematous, no fluctuance or drainable abscess) Neck exam: Present: normal inspection, full ROM. Absent: tenderness, meningismus, lymphadenopathy Respiratory exam: Present: normal lung sounds bilaterally. Absent: respiratory distress, wheezes, rales, rhonchi, stridor Cardiovascular Exam: Present: regular rate, normal rhythm, normal heart sounds. Absent: systolic murmur, diastolic murmur, rubs, gallop, clicks Neurological exam: Present: alert Psychiatric exam: Present: normal affect, normal mood Skin exam: Present: warm, dry, intact, normal color. Absent: rash Course Vital Signs 10/09/22 23:52 Temperature 98.3 F Pulse Rate 65 Respiratory 18 Rate Blood Pressure 160/86 O2 Sat by Pulse 98 Oximetry Medical Decision Making - Medical Decision Making Was pt. sent in by a medical professional or institution (, PA, NUT GRINDER, urgent care, hospital, or half-way...) When possible be specific @ -No Did you speak to anyone other than the patient for history (EMS, parent, family, police, friend...)? What history was obtained from this source @ -No Did you review nursing and triage notes (agree or disagree)? Why? @ -I reviewed and agree with nursing and triage notes Were old charts reviewed (outside hosp., previous admission, EMS record, old EKG, old radiological studies, urgent care reports/EKG's, half-way records)? Report findings @ -No old charts were reviewed Differential Diagnosis (chest pain, altered mental status, abdominal pain women, abdominal pain men, vaginal bleeding, weakness, fever, dyspnea, syncope, headache, dizziness, GI bleed, back pain, seizure, CVA, palpatations, mental health)? @ -Dental infection, dental abscess, fractured tooth EKG interpreted by me (3pts min.). @ -As above X-rays interpreted by me (1pt min.). @ -None done CT interpreted by me (1pt min.). @ -None done U/S interpreted by me (1pt. min.). @ -None done What testing was considered but not performed or refused? (CT, X-rays, U/S, labs)? Why? @ -None What meds were considered but not given or refused? Why? @ -None Did you discuss the management of the patient with other professionals (professionals i.e. , PA, NUT GRINDER, lab, RT, psych nurse, social worker school, line puller, teacher, sales officer, special education case manager)? Give summary @ -No Was smoking cessation discussed for >3mins.? @ -No Was critical care preformed (if so, how long)? @ -No Were there social determinants of health that impacted care today? How? (Homelessness, low income, unemployed, alcoholism, drug addiction, transportation, low edu. Level, literacy, decrease access to med. care, residential, rehab)? @ -No Was there de-escalation of care discussed even if they declined (Discuss DNR or withdrawal of care, Hospice)? DNR status @ -No What co-morbidities impacted this encounter? (DM, HTN, Smoking, COPD, CAD, Cancer, CVA, ARF, Chemo, Hep., AIDS, mental health diagnosis, sleep apnea, morbid obesity)? @ -None Was patient admitted / discharged? Hospital course, mention meds given and route, prescriptions, significant lab abnormalities, going to OR and other pertinent info. @ -Patient presenting for toothache. Tooth is fractured. No abscess. No systemic symptoms or signs. Patient will be discharged with antibiotic she'll follow up with dentist. Discussed return parameters Undiagnosed new problem with uncertain prognosis? @ -No Drug Therapy requiring intensive monitoring for toxicity (Heparin, Nitro, Insulin, Cardizem)? @ -No Were any procedures done? @ -No Diagnosis/symptom? @ -Fractured tooth Acute, or Chronic, or Acute on Chronic? @ Acute Uncomplicated (without systemic symptoms) or Complicated (systemic symptoms)? @ -Uncomplicated Side effects of treatment? @ -No Exacerbation, Progression, or Severe Exacerbation? @ -No Poses a threat to life or bodily function? How? (Chest pain, [place], [place], pneumonia, PE, COPD, DKA, ARF, appy, cholecystitis, CVA, Diverticulitis, Homicidal, Suicidal, threat to staff... and all critical care pts) @ -No Dr. Johnson is my attending Disposition Clinical Impression: Fractured tooth Disposition: HOME SELF-CARE Condition: Good Instructions (If sedation given, give patient instructions): Toothache (ED) Additional Instructions: Alternate Tylenol and Motrin every 3-4 hours for pain. Save Tylenol 3 for severe pain. Do not operate machinery or drink alcohol taking Tylenol 3 as it can cause drowsiness. Follow-up with dentist in 1-2 days. Return to the emergency department if you experience new, concerning, or worsening symptoms Prescriptions: Amoxic-Pot Clav 875-125Mg [Augmentin 875-125] 1 tab PO Q12HR #14 tab Is patient prescribed a controlled substance at d/c from ED?: No Referrals: Robert Loo MD [Primary Care Provider] - 1-2 days
== END 2022-10-10 00:43 | disposition home or self-care (01) ==
LOC: EC 23:35
DX: K03.81 Cracked tooth (principal); I10 Essential (primary) hypertension; Z79.899 Other long term (current) drug therapy; Z90.49 Acquired absence of other specified parts of digestive tract
CPT/HCPCS: 99282; 96372; J1170

== ENCOUNTER → 2023-03-17 | Outpatient (CLI) | payer OTHER ==
--- NOTE | 2023-03-20 19:22 | MM ---
Reason for Exam: Screening (asymptomatic). Last mammogram was performed 4 year(s) and 9 month(s) ago. Patient History: Menarche at age 13. First Full-Term at age 24. Hormonal Contraceptives, from age 18 until age 23. Last menstrual period: Risk Values: Yanna 5 year model risk: 0.8%. NCI Lifetime model risk: 9.8%. Prior Study Comparison: 06/06/2018 Bilateral Screening Mammogram, [facility]. Tissue Density: There are scattered fibroglandular densities. Findings: Analyzed By CAD. Unchanged dermal calcifications. There is no suspicious group of microcalcifications or new suspicious mass in either breast. Overall Assessment: Benign, BI-RAD 2 Management: Screening Mammogram of both breasts in 1 year. . Patient should continue monthly self-breast exams. A clinical breast exam by your physician is recommended on an annual basis. This exam should not preclude additional follow-up of suspicious palpable abnormalities. Note on Yanna scores and lifetime risk: 1. A Yanna score greater than 3% is considered moderate risk. If this is the case, consider specialist referral to assess eligibility for a risk reducing agent. 2. If overall lifetime risk for the development of breast cancer is 20% or higher, the patient may qualify for future screening with alternating mammogram and breast MRI. Electronically signed and approved by: Ramon Gonzales M.D. Radiologist
== END | disposition home or self-care (01) ==
LOC: RADMAMWWP 10:23
PROVIDERS: ATTEND Family Medicine
DX: Z12.31 Encounter for screening mammogram for malignant neoplasm of breast (principal)
CPT/HCPCS: 77067

== ENCOUNTER 2023-04-24 18:21 | Observation (INO) | payer OTHER ==
--- NOTE | 2023-04-24 19:40 | ED ---
General Adult HPI - General Chief complaint: Headache Stated complaint: Headache Time Seen by Provider: 04/24/23 19:07 Source: patient Mode of arrival: ambulatory Limitations: no limitations - History of Present Illness Initial comments: 43-year-old female with a past medical history significant for type 2 diabetes, hypertension, hyperlipidemia, and pack per 2 days smoker presenting to the ED with a chief complaint of chest pain. Patient reports 3 days ago onset of headache and lightheadedness/dizziness. Denies any history of headaches. Patient states pain is constant in nature. Reports that it is a 7-8 in severity. Has tried ibuprofen 800s, Tylenol, and other [id number] medications with no relief of this. Today, notes onset of some chest pain which started to occur while at rest. It is left-sided. Does not radiate. It is waxing and waning in nature. With onset of chest pain with her additional symptoms prompted presentation to the ED for further evaluation. Also notes onset of some epigastric abdominal pain today and some nausea, no vomiting. Patient also notes some urinary frequency which has been ongoing for the past few days. No dysuria. No hematuria. No changes in bowel habits. - Related Data Home Medications Medication Instructions Recorded Confirmed metFORMIN HCL [Glucophage] 1,000 mg PO BID 01/21/21 05/22/22 lisinopriL [Zestril] 30 mg PO DAILY 12/01/21 05/22/22 Atorvastatin [Lipitor] 20 mg PO DAILY 05/22/22 05/22/22 Dulaglutide [Trulicity] 1.5 mg SQ TH 05/22/22 05/22/22 Previous Rx's Medication Instructions Recorded Amoxic-Pot Clav 875-125Mg 1 tab PO Q12HR #14 tab 10/10/22 [Augmentin 875-125] Allergies Allergy/AdvReac Type Severity Reaction Status Date / Time No Known Allergies Allergy Verified 04/24/23 19:05 Review of Systems ROS Statement: Those systems with pertinent positive or pertinent negative responses have been documented in the HPI. ROS Other: All systems not noted in ROS Statement are negative. 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 History of Any Multi-Drug Resistant Organisms: None Reported Past Surgical History: Section, Cholecystectomy, Tubal Ligation Additional Past Surgical History / Comment(s): x2 Past Anesthesia/Blood Transfusion Reactions: No Reported Reaction Past Psychological History: No Psychological Hx Reported Smoking Status: Never smoker Past Alcohol Use History: None Reported Past Drug Use History: None Reported - Past Family History Mother Family Medical History: Diabetes Mellitus, Hyperlipidemia, Hypertension Father Family Medical History: Cancer, Diabetes Mellitus, Hyperlipidemia, Hypertension General Exam Limitations: no limitations General appearance: alert, in no apparent distress Eye exam: Present: normal appearance, PERRL, EOMI ENT exam: Present: mucous membranes moist Neck exam: Present: normal inspection Respiratory exam: Present: normal lung sounds bilaterally Cardiovascular Exam: Present: regular rate GI/Abdominal exam: Present: soft, normal bowel sounds. Absent: distended, tenderness, guarding, rebound, rigid Extremities exam: Present: other (Strength and sensation equal intact of bilateral upper extremities. Radial pulses palpable.) Neurological exam: Present: alert, oriented X3, CN II-XII intact (Patient did have some undershoot on [id number], however rapid alternating hand movements, dkvz-[id number] intact.) Skin exam: Present: warm, dry Course Vital Signs 04/24/23 04/24/23 19:00 21:32 Temperature 98.6 F 98.4 F Pulse Rate 59 L 55 L Respiratory 20 18 Rate Blood Pressure 183/76 138/67 O2 Sat by Pulse 99 96 Oximetry Medical Decision Making - Medical Decision Making Was pt. sent in by a medical professional or institution (, PA, CAN OPERATOR, urgent care, hospital, or senior care...) When possible be specific @ -No Did you speak to anyone other than the patient for history (EMS, parent, family, police, friend...)? What history was obtained from this source @ -No Did you review nursing and triage notes (agree or disagree)? Why? @ -I reviewed and agree with nursing and triage notes Were old charts reviewed (outside hosp., previous admission, EMS record, old EKG, old radiological studies, urgent care reports/EKG's, senior care records)? Report findings @ -No old charts were reviewed Differential Diagnosis (chest pain, altered mental status, abdominal pain women, abdominal pain men, vaginal bleeding, weakness, fever, dyspnea, syncope, headac he, dizziness, GI bleed, back pain, seizure, CVA, palpatations, mental health, musculoskeletal)? @ -Differential Headache: Migraine, tension, cluster, carbon monoxide, central venous thrombosis, pension karma temporal arteritis, acute closure glaucoma, intercranial hemorrhage, mastoiditis, sinusitis, head injury, this is not meant to be an all-inclusive list. Differential Chest Pain: Stable Angina, Unstable Angina, STEMI, NSTEMI Aortic Dissection, Pneumothorax, Musculoskeletal, Esophageal Spasm GERD, Cholecystitis, Pancreatitis, Zoster, this is not meant to be an all-inclusive list. EKG interpreted by me (3pts min.). @ -EKG interpreted by me showing a sinus rhythm with nonspecific findings at a rate of 60 bpm. TN 140, QRS 106, QT/QTc 406/408. X-rays interpreted by me (1pt min.). @ -Chest x-ray interpreted me which revealed no evidence of acute finding. CT interpreted by me (1pt min.). @ -CT angio head and neck and CT brain interpreted me which revealed no evidence of acute finding. U/S interpreted by me (1pt. min.). @ -None done What testing was considered but not performed or refused? (CT, X-rays, U/S, labs)? Why? @ -None What meds were considered but not given or refused? Why? @ -None Did you discuss the management of the patient with other professionals (professionals i.e. , PA, CAN OPERATOR, lab, RT, psych nurse, social media strategist, director post, teacher, business liaison officer, case manager specialist)? Give summary @ -Case discussed with Dr. Iglesias, who accepts admission. Was smoking cessation discussed for >3mins.? @ -No Was critical care preformed (if so, how long)? @ -No Were there social determinants of health that impacted care today? How? (Homelessness, low income, unemployed, alcoholism, drug addiction, transportation, low edu. Level, literacy, decrease access to med. care, [facility]ci, rehab)? @ -No Was there de-escalation of care discussed even if they declined (Discuss DNR or withdrawal of care, Hospice)? DNR status @ -No What co-morbidities impacted this encounter? (DM, HTN, Smoking, COPD, CAD, Cancer, CVA, ARF, Chemo, Hep., AIDS, mental health diagnosis, sleep apnea, morbid obesity)? @ -Type 2 diabetes, hypertension, hyperlipidemia, smoking Was patient admitted / discharged? Hospital course, mention meds given and route, prescriptions, significant lab abnormalities, going to OR and other pert inent info. @ -Admission 43-year-old female presented to the ED with complaints of headache and lightheadedness/dizziness for the last 3 days and today onset of chest pain. L aboratory studies reviewed. CBC does show an elevated white blood cell count 11.9 and elevated neutrophils at 7.8. Chemistry panel largely unremarkable. Troponin x 2 undetectable. UA unremarkable markable. Serology panel unremarkable. Chest x-ray unremarkable. CT angio head and neck unremarkable. CT brain unremarkable. Patient has a heart score of 4. At this time will be admitted to observation with consult to cardiology. Discussed plan of care with patient who is in agreement. Undiagnosed new problem with uncertain prognosis? @ -No Drug Therapy requiring intensive monitoring for toxicity (Heparin, Nitro, Insulin, Cardizem)? @ -No Were any procedures done? @ -No Diagnosis/symptom? @ -Headache, chest pain Acute, or Chronic, or Acute on Chronic? @ -Acute Uncomplicated (without systemic symptoms) or Complicated (systemic symptoms)? @ -Uncomplicated Side effects of treatment? @ -No Exacerbation, Progression, or Severe Exacerbation? @ -No Poses a threat to life or bodily function? How? (Chest pain, [place], [place], pneumonia, PE, COPD, DKA, ARF, appy, cholecystitis, CVA, Diverticulitis, Homicidal, Suicidal, threat to staff... and all critical care pts) @ -Unlikely - Lab Data Result diagrams: 04/24/23 19:15 04/24/23 19:15 Lab Results 04/24/23 04/24/23 04/24/23 Range/Units 19:15 19:15 19:15 WBC 11.9 H (3.8-10.6) k/uL RBC 4.38 (3.80-5.40) m/uL Hgb 13.9 (11.4-16.0) gm/dL Hct 42.0 (34.0-46.0) % MCV 95.8 (80.0-100.0) fL MCH 31.6 (25.0-35.0) pg MCHC 33.0 (31.0-37.0) g/dL RDW 12.9 (11.5-15.5) % Plt Count 233 (150-450) k/uL MPV 8.2 Neutrophils % 66 % Lymphocytes % 26 % Monocytes % 4 % Eosinophils % 3 % Basophils % 1 % Neutrophils # 7.8 H (1.3-7.7) k/uL Lymphocytes # 3.1 (1.0-4.8) k/uL Monocytes # 0.5 (0-1.0) k/uL Eosinophils # 0.4 (0-0.7) k/uL Basophils # 0.1 (0-0.2) k/uL PT 9.9 L (10.0-12.5) sec INR 0.9 (<1.2) APTT 24.5 (22.0-30.0) sec Sodium (137-145) mmol/L Potassium (3.5-5.1) mmol/L Chloride (98-107) mmol/L Carbon Dioxide (22-30) mmol/L Anion Gap mmol/L BUN (7-17) mg/dL Creatinine (0.52-1.04) mg/dL Est GFR (CKD-EPI)AfAm (>60 ml/min/1.73 sqM) Est GFR (CKD-EPI)NonAf (>60 ml/min/1.73 sqM) Glucose (74-99) mg/dL Calcium (8.4-10.2) mg/dL Magnesium (1.6-2.3) mg/dL Total Bilirubin (0.2-1.3) mg/dL AST (14-36) U/L ALT (4-34) U/L Alkaline Phosphatase (38-126) U/L Troponin I (0.000-0.034) ng/mL Total Protein (6.3-8.2) g/dL Albumin (3.5-5.0) g/dL Amylase (30-110) U/L Lipase (23-300) U/L Urine Color Colorless Urine Appearance Clear (Clear) Urine pH 6.5 (5.0-8.0) Ur Specific [place] 1.020 (1.001-1.035) Urine Protein Trace H (Negative) Urine Glucose (UA) Negative (Negative) Urine Ketones Negative (Negative) Urine Blood Negative (Negative) Urine Nitrite Negative (Negative) Urine Bilirubin Negative (Negative) Urine Urobilinogen 2.0 (<2.0) mg/dL Ur Leukocyte Esterase Negative (Negative) Influenza Type A (PCR) (Not Detectd) Influenza Type B (PCR) (Not Detectd) RSV (PCR) (Not Detectd) SARS-CoV-2 (PCR) (Not Detectd) 04/24/23 04/24/23 04/24/23 Range/Units 19:15 19:15 19:15 WBC (3.8-10.6) k/uL RBC (3.80-5.40) m/uL Hgb (11.4-16.0) gm/dL Hct (34.0-46.0) % MCV (80.0-100.0) fL MCH (25.0-35.0) pg MCHC (31.0-37.0) g/dL RDW (11.5-15.5) % Plt Count (150-450) k/uL MPV Neutrophils % % Lymphocytes % % Monocytes % % Eosinophils % % Basophils % % Neutrophils # (1.3-7.7) k/uL Lymphocytes # (1.0-4.8) k/uL Monocytes # (0-1.0) k/uL Eosinophils # (0-0.7) k/uL Basophils # (0-0.2) k/uL PT (10.0-12.5) sec INR (<1.2) APTT (22.0-30.0) sec Sodium 138 (137-145) mmol/L Potassium 4.1 (3.5-5.1) mmol/L Chloride 108 H (98-107) mmol/L Carbon Dioxide 21 L (22-30) mmol/L Anion Gap 9 mmol/L BUN 14 (7-17) mg/dL Creatinine 0.50 L (0.52-1.04) mg/dL Est GFR (CKD-EPI)AfAm >90 (>60 ml/min/1.73 sqM) Est GFR (CKD-EPI)NonAf >90 (>60 ml/min/1.73 sqM) Glucose 143 H (74-99) mg/dL Calcium 9.4 (8.4-10.2) mg/dL Magnesium 1.5 L (1.6-2.3) mg/dL Total Bilirubin 0.4 (0.2-1.3) mg/dL AST 17 (14-36) U/L ALT 11 (4-34) U/L Alkaline Phosphatase 61 (38-126) U/L Troponin I <0.012 (0.000-0.034) ng/mL Total Protein 7.0 (6.3-8.2) g/dL Albumin 4.2 (3.5-5.0) g/dL Amylase 69 (30-110) U/L Lipase 95 (23-300) U/L Urine Color Urine Appearance (Clear) Urine pH (5.0-8.0) Ur Specific [place] (1.001-1.035) Urine Protein (Negative) Urine Glucose (UA) (Negative) Urine Ketones (Negative) Urine Blood (Negative) Urine Nitrite (Negative) Urine Bilirubin (Negative) Urine Urobilinogen (<2.0) mg/dL Ur Leukocyte Esterase (Negative) Influenza Type A (PCR) Not Detected (Not Detectd) Influenza Type B (PCR) Not Detected (Not Detectd) RSV (PCR) Not Detected (Not Detectd) SARS-CoV-2 (PCR) Not Detected (Not Detectd) 04/24/23 Range/Units 22:09 WBC (3.8-10.6) k/uL RBC (3.80-5.40) m/uL Hgb (11.4-16.0) gm/dL Hct (34.0-46.0) % MCV (80.0-100.0) fL MCH (25.0-35.0) pg MCHC (31.0-37.0) g/dL RDW (11.5-15.5) % Plt Count (150-450) k/uL MPV Neutrophils % % Lymphocytes % % Monocytes % % Eosinophils % % Basophils % % Neutrophils # (1.3-7.7) k/uL Lymphocytes # (1.0-4.8) k/uL Monocytes # (0-1.0) k/uL Eosinophils # (0-0.7) k/uL Basophils # (0-0.2) k/uL PT (10.0-12.5) sec INR (<1.2) APTT (22.0-30.0) sec Sodium (137-145) mmol/L Potassium (3.5-5.1) mmol/L Chloride (98-107) mmol/L Carbon Dioxide (22-30) mmol/L Anion Gap mmol/L BUN (7-17) mg/dL Creatinine (0.52-1.04) mg/dL Est GFR (CKD-EPI)AfAm (>60 ml/min/1.73 sqM) Est GFR (CKD-EPI)NonAf (>60 ml/min/1.73 sqM) Glucose (74-99) mg/dL Calcium (8.4-10.2) mg/dL Magnesium (1.6-2.3) mg/dL Total Bilirubin (0.2-1.3) mg/dL AST (14-36) U/L ALT (4-34) U/L Alkaline Phosphatase (38-126) U/L Troponin I <0.012 (0.000-0.034) ng/mL Total Protein (6.3-8.2) g/dL Albumin (3.5-5.0) g/dL Amylase (30-110) U/L Lipase (23-300) U/L Urine Color Urine Appearance (Clear) Urine pH (5.0-8.0) Ur Specific [place] (1.001-1.035) Urine Protein (Negative) Urine Glucose (UA) (Negative) Urine Ketones (Negative) Urine Blood (Negative) Urine Nitrite (Negative) Urine Bilirubin (Negative) Urine Urobilinogen (<2.0) mg/dL Ur Leukocyte Esterase (Negative) Influenza Type A (PCR) (Not Detectd) Influenza Type B (PCR) (Not Detectd) RSV (PCR) (Not Detectd) SARS-CoV-2 (PCR) (Not Detectd) Disposition Clinical Impression: Chest pain, Headache Disposition: ADMITTED IP TO THIS HOSP Condition: Good Referrals: None,Stated [REFERRING] - 1-2 days Time of Disposition: 23:00
[2023-04-24 19:58] LABS: Appearance,Urine Clear (Clear); Bilirubin,Urine Negative (Negative); Blood,Urine Negative (Negative); Color,Urine Colorless; Glucose,Urine (UA) Negative (Negative); Ketones,Urine Negative (Negative); Leukocyte Esterase,Urine Negative (Negative); Nitrite,Urine Negative (Negative); PH, Urine 6.5 (5.0-8.0); Protein,Urine Trace (Negative)
[2023-04-24 19:59] LABS: Basophils # (A) 0.1 k/uL (0-0.2); Basophils % (A) 1 %; Eosinophils # (A) 0.4 k/uL (0-0.7); Eosinophils % (A) 3 %; HGB 13.9 gm/dL (11.4-16.0); Lymphocytes # (A) 3.1 k/uL (1.0-4.8); Lymphocytes % (A) 26 %; MCH 31.6 pg (25.0-35.0); MCV 95.8 fL (80.0-100.0); Mean Platelet Volume 8.2; Monocytes # (A) 0.5 k/uL (0-1.0); Monocytes % (A) 4 %; Neutrophils # (A) 7.8 k/uL (1.3-7.7); Neutrophils % (A) 66 %; Platelet Count 233 k/uL (150-450); RBC 4.38 m/uL (3.80-5.40); RDW 12.9 % (11.5-15.5); WBC 11.9 k/uL (3.8-10.6)
[2023-04-24 20:06] LABS: INR 0.9 (<1.2); Partial Thromboplastin Time 24.5 sec (22.0-30.0); Prothrombin Time 9.9 sec (10.0-12.5)
[2023-04-24 20:18] LABS: ALT 11 U/L (4-34); AST 17 U/L (14-36); African American GFR (CKD) >90 (>60 ml/min/1.73 sqM); Albumin 4.2 g/dL (3.5-5.0); Alkaline Phosphatase 61 U/L (38-126); Amylase 69 U/L (30-110); Anion Gap 9 mmol/L; Blood Urea Nitrogen 14 mg/dL (7-17); Calcium 9.4 mg/dL (8.4-10.2); Carbon Dioxide 21 mmol/L (22-30); Chloride 108 mmol/L (98-107); Glucose 143 mg/dL (74-99); Lipase 95 U/L (23-300); Magnesium 1.5 mg/dL (1.6-2.3); Non-African American GFR(CKD) >90 (>60 ml/min/1.73 sqM); Potassium 4.1 mmol/L (3.5-5.1); Sodium 138 mmol/L (137-145); Total Bilirubin 0.4 mg/dL (0.2-1.3)
[2023-04-24] MEDS: ACETAMINOPHEN TAB 500 MG TAB PO STA (20:44)
--- NOTE | 2023-04-24 21:51 | CT ---
EXAMINATION TYPE: CT brain wo con CT DLP: 1751.8 mGycm, Automated exposure control for dose reduction was used. DATE OF EXAM: 04/24/2023 8:45 PM COMPARISON: None. CLINICAL INDICATION:Female, 43 years old with history of CASILLAS, dizziness, Headache with dizziness x 3 d ays. TECHNIQUE: Brain: Axial CT images of the brain were obtained with coronal and sagittal reformats created and rev iewed. Contrast used: None. Oral contrast used: None. FINDINGS: Extra-axial spaces: No abnormal extra-axial fluid collections. Ventricular system: Within normal limits. Cerebral parenchyma: No increased attenuation to suggest acute intraparenchymal hemorrhage. The gra y-white matter interface appears maintained. No significant atrophy. White matter unremarkable by C T. Cerebellum: No acute abnormality. Mass effect: No evidence of mass effect or midline shift. Intracranial vasculature: Unremarkable Soft tissues: No acute or concerning abnormality. Visualized orbits: Orbital contents appear grossly intact. Calvarium/osseous structures: No evidence of calvarial fracture. Paranasal sinuses and mastoid air cells: Clear. Mild S-shaped nasal septal deviation. MRI is more sensitive for detecting acute processes such as infarct, and may be considered if clinica lly warranted. IMPRESSION: No acute intracranial CT abnormality.
--- NOTE | 2023-04-24 22:00 | CT ---
EXAMINATION TYPE: CT angio head neck DATE OF EXAM: 04/24/2023 8:56 PM COMPARISON: Same day CT head. CLINICAL INDICATION:Female, 43 years old with history of CASILLAS dizziness; PHH, Headache with dizziness x 3 days. TECHNIQUE: Axially acquired helical CT angiogram of the head and neck was obtained with contrast. Axi al images are supplemented with 3D reconstructions which [facility] NASCET criteria used. Contrast used: 65 cc mL of Isovue 370 without and with IV Contrast, Oral contrast used: None. CT DLP: 1751.8 mGycm, Automated exposure control for dose reduction was used. FINDINGS: CTA Neck: A 3 vessel aortic arch is shown. No appreciable atherosclerosis of the arch or branch vessels. No di ssection. The bilateral common carotid arteries are normally patent. There is no significant atherosclerotic di sease or stenosis at the carotid bifurcation or proximal ICA. The ICAs and ECAs are patent bilaterall y. No dissection is seen. No significant atherosclerotic disease or stenosis is seen of the proximal vertebral arteries. Verteb rals appear codominant, and patent throughout the neck. No dissection is seen. Other: Thyroid is unremarkable. Airways are patent. Included lung apices are clear. No mass or adenop athy in the visualized neck. Mild degenerative changes of the cervical spine without vertical stenosi s suggested. There is mild reversal of the normal cervical lordosis which could be due to degenerativ e changes and/or muscular spasm. CTA Head: Intracranial ICAs, bifurcations, ACAs, MCAs appear normally patent. Anterior communicating artery michelle ears unremarkable. The intracranial vertebral arteries enhance normally. Basilar artery is patent and unremarkable. Norm al basilar bifurcation without evidence of aneurysm. Visualized proximal cigarette packer are patent. A small patent left posterior communicating artery is seen. No intracranial large vessel occlusion, hemodynamically significant stenosis, aneurysm, dissection, o r arteriovenous malformation is shown. The dural venous sinuses appear grossly patent without evidence of thrombosis. Other: Please refer to same-day CT head report.. IMPRESSION: CTA neck: Patent CTA neck. No dissection, hemodynamically significant stenosis, or pseudoaneurysm detected in t he carotid or vertebral arteries in the neck. CTA head: Patent CTA head. No intracranial large vessel occlusion, significant stenosis, or sizable aneurysm de tected in the limits of CTA.
--- NOTE | 2023-04-24 22:28 | XR ---
EXAMINATION TYPE: XR chest 2V DATE OF EXAM: 04/24/2023 8:21 PM CLINICAL INDICATION:Female, 43 years old with history of chest pain; [facility] COMPARISON: Chest radiographs from 05/22/2022 TECHNIQUE: XR chest 2V Frontal and lateral views of the chest. FINDINGS: Lungs/Pleura: There is no evidence of pleural effusion, focal consolidation, or pneumothorax. Pulmonary vascularity: Unremarkable. Heart/mediastinum: Cardiomediastinal silhouette is unremarkable. Musculoskeletal: No acute osseous pathology. IMPRESSION: No acute cardiopulmonary disease/process.
[2023-04-24] MEDS ORDERED: KETOROLAC 15 MG/ML 1 ML VIAL IVP PRN (23:23)
[2023-04-24] MEDS ORDERED: ACETAMINOPHEN TAB 325 MG TAB PO PRN (23:23)
[2023-04-24] MEDS ORDERED: NALOXONE 0.4 MG/ML 1 ML VIAL IV PRN (23:23)
[2023-04-24] MEDS: SODIUM CHLORIDE 0.9% 1,000 ML IV SCH (23:48)
[2023-04-24] MEDS: KETOROLAC 15 MG/ML 1 ML VIAL IVP STA (23:49)
[2023-04-25] MEDS ORDERED: DEXTROSE 50% SYRINGE 50 ML IVP PRN ×2 (04:07)
[2023-04-25] MEDS ORDERED: ALPRAZolam 0.5 MG TAB PO PRN (04:09)
[2023-04-25] MEDS ORDERED: HYDROcodone/APAP 5-325MG 1 EACH TAB PO PRN (04:09)
[2023-04-25] MEDS ORDERED: cloNIDine HCL 0.2 MG TAB PO PRN (04:09)
--- NOTE | 2023-04-25 04:16 | P.HPIM ---
History of Present Illness H&P Date: 04/24/23 Chief Complaint: Chest pain 43-year-old female with diabetes mellitus hypertension Patient coming in for evaluation of multiple issues She started having occipital headache since Monday night associated with feeling nauseous but denies any vomiting denies any focal neurodeficits denies any changes in vision or hearing denies any dizziness or lightheadedness however she was reporting some generalized feeling weak and tired she denies any sore throat runny nose denies any coughing denies any abdominal pain denies any head injury Over the weekend the pain was off-and-on she took some pain medications like Excedrin and Motrin's at home Today Monday while at work she started experiencing left-sided chest pain sharp poking in nature 7 out of 10 in severity nonradiating associated with shortness of breath but no dizziness no profuse sweating no nausea vomiting this pain lasted for an hour and then was waxing and waning for which she decided to come in for evaluation Patient denies any cardiac history denies any trauma to the chest denies any unusual physical activity Patient does admit to tobacco smoking denies any illicit drugs or heavy alcohol Patient denies any history of blood clot denies any recent travel or hospital stay review of systems Pertinent positives as noted in HPI. All other systems were reviewed and are negative on exam Constitutional: No acute distress, conversant, pleasant Eyes: Anicteric sclerae, moist conjunctiva, Pupils equal round reactive to light ENMT: NC/AT Oropharynx clear, no erythema, or exudates Neck: Supple, no masses, or JVD No carotid bruits No thyromegaly Lungs: Clear to auscultation Clear to percussion Normal respiratory effort, no accessory muscle use Cardiovascular: Heart regular in rate and rhythm, No murmurs, gallops, or rubs No peripheral edema Abdominal: Soft Nontender, no guarding, rebound or rigidity Abdomen moving with respiration Normoactive bowel sounds No hepatomegaly, No splenomegaly Extremities: No digital cyanosis No clubbing Pedal pulses intact and symmetrical Radial pulses intact and symmetrical No calf tenderness Psychiatric: Alert and oriented to person, place and time Appropriate affect fair judgement Neuro Muscles Strength 5/5 in all 4 extremities Sensation to light touch grossly present throughout Cranial nerves II-XII grossly intact Past Medical History Past Medical History: Chest Pain / Angina, Hypertension Additional Past Medical History / Comment(s): CYST ON LEFT CHEST ., STATES RECENT FLU., 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 History of Any Multi-Drug Resistant Organisms: None Reported Past Surgical History: Section, Cholecystectomy, Tubal Ligation Additional Past Surgical History / Comment(s): x2 Past Anesthesia/Blood Transfusion Reactions: No Reported Reaction Past Psychological History: No Psychological Hx Reported Smoking Status: Never smoker Past Alcohol Use History: None Reported Past Drug Use History: None Reported - Past Family History Mother Family Medical History: Diabetes Mellitus, Hyperlipidemia, Hypertension Father Family Medical History: Cancer, Diabetes Mellitus, Hyperlipidemia, Hypertension Medications and Allergies Home Medications Medication Instructions Recorded Confirmed Type metFORMIN HCL [Glucophage] 1,000 mg PO BID 01/21/21 05/22/22 History lisinopriL [Zestril] 30 mg PO DAILY 12/01/21 05/22/22 History Atorvastatin [Lipitor] 20 mg PO DAILY 05/22/22 05/22/22 History Dulaglutide [Trulicity] 1.5 mg SQ TH 05/22/22 05/22/22 History Amoxic-Pot Clav 875-125Mg 1 tab PO Q12HR #14 tab 10/10/22 Rx [Augmentin 875-125] Allergies Allergy/AdvReac Type Severity Reaction Status Date / Time No Known Allergies Allergy Verified 04/24/23 19:05 Physical Exam Vitals: Vital Signs Temp Pulse Resp BP Pulse Ox 04/24/23 21:32 98.4 F 55 L 18 138/67 96 04/24/23 19:00 98.6 F 59 L 20 183/76 99 Intake and Output 04/24/23 04/24/23 04/25/23 14:59 22:59 06:59 Other: Weight 98.43 kg Results CBC & Chem 7: 04/24/23 19:15 04/24/23 19:15 Labs: Abnormal Lab Results - Last 24 Hours (Table) 04/24/23 04/24/23 04/24/23 Range/Units 19:15 19:15 19:15 WBC 11.9 H (3.8-10.6) k/uL Neutrophils # 7.8 H (1.3-7.7) k/uL PT 9.9 L (10.0-12.5) sec Chloride (98-107) mmol/L Carbon Dioxide (22-30) mmol/L Creatinine (0.52-1.04) mg/dL Glucose (74-99) mg/dL Magnesium (1.6-2.3) mg/dL Urine Protein Trace H (Negative) 04/24/23 Range/Units 19:15 WBC (3.8-10.6) k/uL Neutrophils # (1.3-7.7) k/uL PT (10.0-12.5) sec Chloride 108 H (98-107) mmol/L Carbon Dioxide 21 L (22-30) mmol/L Creatinine 0.50 L (0.52-1.04) mg/dL Glucose 143 H (74-99) mg/dL Magnesium 1.5 L (1.6-2.3) mg/dL Urine Protein (Negative) Assessment and Plan Assessment: 43-year-old female diabetes mellitus hypertension coming in for evaluation of headache and left-sided chest pain I discussed case with ED doctor and accepted the admission for atypical chest pain rule out acute coronary syndrome with anticipated length of stay less than 2 midnights Atypical chest pain Aspirin statin Nitro as needed for chest pain EKG no acute ST changes normal sinus rhythm Monitor vital signs cardiac monitoring Cardiology consult Gentle IV fluid hydration normal saline 75 cc/h Hypomagnesemia Magnesium 1.5 Replace and follow-up level replace with IV magnesium 2 g over 2 hours Uncontrolled hypertension Occipital headache CT scan of the brain negative for any acute intracranial pathology CT angio of the head and neck showing no evidence of dissection no h emodynamically significant stenosis no aneurysm detected Headaches most likely due to poorly controlled hypertension Continue with lisinopril Clonidine point 2 mg as needed for systolic blood pressure above 180 Symptomatic control with [place] 53 25 as needed every 4 hours Otherwise blood work unremarkable sodium 138 potassium 4.1 BUN 14 creatinine 0.5 White count 11.9 hemoglobin 13.9 Diabetes mellitus insulin sliding scale Hold oral hypoglycemic agent Full code DVT prophylaxis heparin subcu 3 times daily As needed Xanax 0.5 mg p.o. every 8 hours for anxiety
[2023-04-25] MEDS: MAGNESIUM SULFATE-D5W PMX 1 GM in DEXTROSE/WATER 1 100ML.BAG IVPB SCH (04:23)
[2023-04-25 06:29] LABS: Glucose,Whole Blood 153 mg/dL (70-110)
[2023-04-25 09:02] VITALS: PULSE 62
--- NOTE | 2023-04-25 10:52 | P.CRDCN ---
History of Present Illness Consult date: 04/25/23 Consult reason: chest pain History of present illness: History of present illness: This is a 43-year-old female with PMH of DMT2, HTN. We have been asked to evaluate the patient for chest pain. Patient was previously seen in the office in [address] SAYRA Ashford but has not had follow-up. Patient states that she developed a headache starting on Monday that was very severe following that she developed chest pain. She has had this over the past couple months where she feels that her heart rate is beating fast or strong and then seems to stop and will happen every few days but not consistently. The pain in her chest feels like a poking like some thing is poking into her chest and then it feels sore. Pain is not related to activity, GERD. She does have occasional nausea. She states she saw her PCP yesterday regarding the headache everything was fine at that time. She went home and then came into the emergency center because of chest pain. Her blood pressure has been running high it was 160s on the weekend. She is currently a smoker and cutting back to 1 and half packs per day previously 2 pack/day. EKG sinus rhythm. Chest x-ray: No acute process CT angio of the head and neck showed no abnormalities. CT of the brain showed no acute intracranial abnormality. WBC 11.9, hemoglobin 13.9, platelet count 233. INR 0.9. Sodium 138, potassium 4.1, chloride 108, CO2 21, BUN 14 creatinine 0.5. Blood sugar 143. Troponins negative x 4. Magnesium 1.5. Liver function tests are normal. Lipase 95. Urinalysis trace protein. Influenza A, influenza B, RSV, COVID-19 not detected. Home cardiac medications: Atorvastatin 20 mg daily, lisinopril 30 mg daily, also on metformin 1000 mg twice daily and Trulicity 1.5 mg Echocardiogram performed 03/24/2021 with EF 55% with no significant abnormalities. Exercise tolerance test performed 05/24/2021 walked for 7 and half minutes at rate of 152. No significant angina, arrhythmia, EKG changes to indicate ischemia. Review Of Systems: At the time of my exam: CONSTITUTIONAL: Denies fever or chills. HEENT: Denies blurred vision, vision changes, or eye pain. Denies hemoptysis CARDIOVASCULAR: Denies chest pain. Denies orthopnea. Denies PND. Denies palpitations RESPIRATORY: Denies shortness of breath. GASTROINTESTINAL: Denies abdominal pain. Denies nausea or vomiting. HEMATOLOGIC: Denies bleeding disorders. GENITOURINARY: Denies any blood in urine. SKIN: Denies pruitis. Denies rash. Physical examination: Gen: This is a 43-year-old female in no acute distress VS: reviewed HEENT: Head is atraumatic, normocephalic. Pupils equal, round. Sclerae is anicteric. NECK: Supple. No JVD. LUNGS: Clear to auscultation. No wheezes or rhonchi. No intercostal retractions. HEART: Regular rate and rhythm. No murmur. ABDOMEN: Soft No tenderness. EXTREMITIES: No pedal edema. No calf tenderness. NEUROLOGICAL: Patient is awake, alert and oriented x3. Assessment: Atypical chest pain, acute coronary syndrome ruled out Headache Hypertension uncontrolled Hyperlipidemia Diabetes mellitus type 2 Obesity Tobacco use and dependence Plan: Resume patient's home cardiac medications Stress echocardiogram today Obtain 2-D echocardiogram and Doppler study to assess cardiac structure and function If testing is unremarkable, patient is cleared for discharge and patient may follow-up with Dr. SAYRA Ashford in 1 to 2 weeks. Thank you kindly for this consultation. Nurse practitioner note has been reviewed, I agree with documented findings and plan of care. Patient was seen and examined. 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 History of Any Multi-Drug Resistant Organisms: None Reported Past Surgical History: Section, Cholecystectomy, Tubal Ligation Additional Past Surgical History / Comment(s): x2 Past Anesthesia/Blood Transfusion Reactions: No Reported Reaction Past Psychological History: No Psychological Hx Reported Smoking Status: Never smoker Past Alcohol Use History: None Reported Past Drug Use History: None Reported - Past Family History Mother Family Medical History: Diabetes Mellitus, Hyperlipidemia, Hypertension Father Family Medical History: Cancer, Diabetes Mellitus, Hyperlipidemia, Hypertension Medications and Allergies Home Medications Medication Instructions Recorded Confirmed Type metFORMIN HCL [Glucophage] 1,000 mg PO BID 01/21/21 04/25/23 History lisinopriL [Zestril] 30 mg PO DAILY 12/01/21 04/25/23 History Atorvastatin [Lipitor] 20 mg PO DAILY 05/22/22 04/25/23 History Dulaglutide [Trulicity] 1.5 mg SQ DIRECTED 05/22/22 04/25/23 History Allergies Allergy/AdvReac Type Severity Reaction Status Date / Time No Known Allergies Allergy Verified 04/25/23 06:58 Physical Exam Vitals: Vital Signs Temp Pulse Resp BP Pulse Ox 04/25/23 04:22 56 L 17 131/56 97 04/25/23 00:40 62 19 04/24/23 23:51 54 L 18 156/71 99 04/24/23 21:32 98.4 F 55 L 18 138/67 96 04/24/23 19:00 98.6 F 59 L 20 183/76 99 Intake and Output 04/24/23 04/25/23 04/25/23 22:59 06:59 14:59 Other: Weight 98.43 kg Results 04/24/23 19:15 04/24/23 19:15 Cardiac Enzymes 04/24/23 04/24/23 04/24/23 Range/Units 19:15 19:15 22:09 AST 17 (14-36) U/L Troponin I <0.012 <0.012 (0.000-0.034) ng/mL 04/25/23 04/25/23 Range/Units 00:47 07:30 AST (14-36) U/L Troponin I <0.012 <0.012 (0.000-0.034) ng/mL Coagulation 04/24/23 Range/Units 19:15 PT 9.9 L (10.0-12.5) sec APTT 24.5 (22.0-30.0) sec CBC 04/24/23 Range/Units 19:15 WBC 11.9 H (3.8-10.6) k/uL RBC 4.38 (3.80-5.40) m/uL Hgb 13.9 (11.4-16.0) gm/dL Hct 42.0 (34.0-46.0) % Plt Count 233 (150-450) k/uL Comprehensive Metabolic Panel 04/24/23 Range/Units 19:15 Sodium 138 (137-145) mmol/L Potassium 4.1 (3.5-5.1) mmol/L Chloride 108 H (98-107) mmol/L Carbon Dioxide 21 L (22-30) mmol/L BUN 14 (7-17) mg/dL Creatinine 0.50 L (0.52-1.04) mg/dL Glucose 143 H (74-99) mg/dL Calcium 9.4 (8.4-10.2) mg/dL AST 17 (14-36) U/L ALT 11 (4-34) U/L Alkaline Phosphatase 61 (38-126) U/L Total Protein 7.0 (6.3-8.2) g/dL Albumin 4.2 (3.5-5.0) g/dL Current Medications Generic Name Dose Route Start Last Admin Trade Name Freq PRN Reason Stop Dose Admin Acetaminophen 650 mg 04/24/23 23:23 Acetaminophen Tab 325 Mg Tab PO Q6HR PRN Mild Pain or Fever > 100.5 Hydrocodone Bitart/Acetaminophen 1 each 04/25/23 04:09 Hydrocodone/Apap 5-325mg 1 Each Tab PO Q4HR PRN Pain Alprazolam 0.5 mg 04/25/23 04:09 Alprazolam 0.5 Mg Tab PO TID PRN Anxiety Aspirin 81 mg 04/25/23 09:00 Aspirin 81 Mg PO DAILY [facility] Atorvastatin Calcium 20 mg 04/25/23 09:00 Atorvastatin 20 Mg Tab PO DAILY [facility] Clonidine 0.2 mg 04/25/23 04:09 Clonidine Hcl 0.2 Mg Tab PO TID PRN Blood Pressure - High Dextrose/Water 25 ml 04/25/23 04:07 Dextrose 50% Syringe 50 Ml IVP PER PROTOCOL PRN Hypoglycemia Protocol Dextrose/Water 50 ml 04/25/23 04:07 Dextrose 50% Syringe 50 Ml IVP PER PROTOCOL PRN Hypoglycemia Protocol Heparin Sodium (Porcine) 5,000 unit 04/25/23 08:00 Heparin Sodium,Porcine 5,000 Unit/Ml 1 Ml Vial SQ Q8HR [facility] Sodium Chloride 1,000 mls @ 75 mls/hr 04/24/23 23:30 04/24/23 23:48 Saline 0.9% IV 75 mls/hr .[id number] VALERIE Administration Insulin Aspart 0 unit 04/25/23 07:30 Insulin Aspart (Novolog) 100 Unit/Ml Vial SQ ACHS [facility] Protocol Ketorolac Tromethamine 15 mg 04/24/23 23:23 Ketorolac 15 Mg/Ml 1 Ml Vial IVP 04/27/23 23:24 Q6HR PRN Moderate Pain (Scale 4 to 6) Lisinopril 30 mg 04/25/23 09:00 Lisinopril 10 Mg Tab PO DAILY VALERIE Naloxone HCl 0.2 mg 04/24/23 23:23 Naloxone 0.4 Mg/Ml 1 Ml Vial IV Q2M PRN Opioid Reversal Intake and Output 04/24/23 04/25/23 04/25/23 22:59 06:59 14:59 Other: Weight 98.43 kg 04/24/23 19:15 04/24/23 19:15
[2023-04-25] MEDS: lisinopriL 10 MG TAB PO SCH (10:57)
[2023-04-25] MEDS: ASPIRIN 81 MG PO SCH (10:57)
[2023-04-25] MEDS: HEPARIN SODIUM,PORCINE 5,000 UNIT/ML 1 ML VIAL SQ SCH (10:58)
[2023-04-25] MEDS: ATORVASTATIN 20 MG TAB PO SCH (10:58)
[2023-04-25] MEDS: INSULIN ASPART (NovoLOG) 100 UNIT/ML VIAL SQ SCH (11:08)
[2023-04-25] MEDS: KETOROLAC 15 MG/ML 1 ML VIAL IVP STA (11:27)
[2023-04-25] MEDS: PROCHLORPERAZINE INJ 10 MG/2 ML VIAL IVP STA (11:28)
[2023-04-25] MEDS: diphenhydrAMINE 50 MG/ML 1 ML VIAL IVP STA (11:28)
--- NOTE | 2023-04-25 12:11 | CA ---
Transthoracic Echo Report Name: Vicky Armenta Age: 43 Gender: F : 1980 Exam Date: 04/25/2023 09:53 Exam Location: [place] [facility] Ht (in): 65 Wt (lb): 217 Ordering Physician: Oksana Bardales Attending/Referring Phys: [id number], Catia Heel Scorer Linsey Moreno RDCS Procedure CPT: Indications: LVF Cardiac Hx: Technical Quality: Fair Contrast 1: Total Dose (mL): Contrast 2: Total Dose (mL): MEASUREMENTS (Male / Female) Normal Values 2D ECHO LV Diastolic Diameter PLAX 4.0 cm 4.2 - 5.9 / 3.9 - 5.3 cm LV Systolic Diameter PLAX 1.7 cm IVS Diastolic Thickness 1.3 cm 0.6 - 1.0 / 0.6 - 0.9 cm LVPW Diastolic Thickness 1.4 cm 0.6 - 1.0 / 0.6 - 0.9 cm LV Relative Wall Thickness 0.7 RV Internal Dim ED PLAX 4.0 cm LA Volume 48.8 cm??? 18 - 58 / 22 - 52 cm??? LA Volume Index 22.5 cm???/m??? 16 - 28 cm???/m??? M-MODE Aortic Root Diameter MM 2.6 cm LA Systolic Diameter MM 4.4 cm LA Ao Ratio MM 1.7 AV Cusp Separation MM 1.8 cm DOPPLER AV Peak Velocity 162.0 cm/s AV Peak Gradient 10.5 mmHg AV Mean Velocity 109.4 cm/s AV Mean Gradient 5.3 mmHg AV Velocity Time Integral 35.0 cm LVOT Peak Velocity 123.2 cm/s LVOT Peak Gradient 6.1 mmHg LVOT Velocity Time Integral 30.2 cm MV Area PHT 4.2 cm??? Mitral E Point Velocity 136.9 cm/s Mitral A Point Velocity 63.7 cm/s Mitral E to A Ratio 2.1 MV Deceleration Time 182.7 ms MV E' Velocity 10.0 cm/s Mitral E to MV E' Ratio 13.7 TR Peak Velocity 243.1 cm/s TR Peak Gradient 23.6 mmHg Right Ventricular Systolic Press 26.8 mmHg FINDINGS Left Ventricle Mildly increased left ventricular wall thickness. Left ventricular cavity size normal. Normal left ventricular systolic function with no obvious regional wall motion abnormalities. Left ventricular ejection fraction is estimated at 55-60 %. Grade III diastolic dysfunction. Right Ventricle Right ventricular dilatation. Right ventricular systolic pressure within normal limits. Right Atrium Normal right atrial size. Left Atrium Normal left atrial size. Mitral Valve Structurally normal mitral valve. Trace to mild mitral regurgitation. Aortic Valve Trileaflet aortic valve. No aortic valve stenosis or regurgitation. Tricuspid Valve Structurally normal tricuspid valve. Mild tricuspid regurgitation. Pulmonic Valve Structurally normal pulmonic valve. Trace pulmonic regurgitation. Pericardium No pericardial effusion. Aorta Normal size aortic root and proximal ascending aorta. CONCLUSIONS Left ventricular ejection fraction is estimated at 55-60 %. No obvious regional wall motion abnormality Grade II diastolic dysfunction. No significant valvular dysfunction Previewed by: Dr Evens Wood (Electronically Signed) Final Date: 25 April 2023 12:10
[2023-04-25 12:17] LABS: Glucose,Whole Blood 142 mg/dL (70-110)
--- NOTE | 2023-04-25 12:24 | CA ---
Stress Echo Report Vicky Armenta Age: 43 Gender: F : 1980 Exam Date: 04/25/2023 09:39 Exam Location: [place] [facility] Ht (in): 65 Wt (lb): 217 Ordering Physician: Oksana Bardales Referring Physician: [id number] Profile Shaper Operator: Sly Mendez Technologist Procedure CPT: Indication: Chest Pain ICD-9 Codes: Rhythm: Patient History: CP, ELPIDIO, PALP, HTN, DM, CHOL, FAMILY HX, TOB, COPD Cardiac Medications: SEE CHART Medications in past 24 hours: Contrast: N/A Stress Results Protocol: Martinez Total dose(mL): Exercise Duration (min:sec): 9:[address] Depression (mm): Angina Score: Velez Score: METS: 10.5 Resting HR: 80 Resting BP: 137 / 63 Peak HR: 140 Peak BP: 200 / 76 Max Predicted HR: 175 80 % Max Predicted HR Target HR: 149 Double Product: 80212 Stress Summary: BP Response: Reason for Termination: MAX EXERTION, DIRECTED PER SLEEP MEDICINE PHYSICIAN Cardiac Symptoms: FATIGUE,HEADACHE ECG Analysis Resting ECG: Normal sinus rhythm Stress ECG: No significant ST-T wave changes diagnostic for ischemia Arrhythmia: No significant ectopic beats or sustained arrhythmias Echo Analysis Resting Echo: Normal segmental and global systolic function. No resting regional wall motion abnormality Peak Echo Analysis: No evidence of stress induced regional wall motion abnormality at 80% max heart rate MEASUREMENTS (Male/Female) Normal Values CONCLUSIONS Nondiagnostic treadmill echo stress test for ischemia as patient could not achieve 85% of max heart rate No echocardiographic and ECG evidence of ischemia at 80% maximum heart rate Good exercise tolerance, patient exercised for 9 minutes and achieved 10.[address] Evens Wood (Electronically Signed) Final Date: 25 April 2023 12:23
[2023-04-25 14:53] VITALS: BP 148/73; RESP 17; TEMP 98.6
--- NOTE | 2023-04-25 14:57 | P.DS ---
Providers Date of admission: 04/24/23 23:24 Expected date of discharge: 04/25/23 Attending physician: Kevin Iglesias MD Consults: 04/24/23 23:23 Consult Physician Urgent Consulting Provider: [facility] Consult Reason/Comments: Chest pain r/o ACS Do you want consulting provider notified?: Yes Primary care physician: Loyda Kingston Hospital Course: Discharge Diagnosis: Chest pain, acute coronary event ruled out. Headache, resolved after administration of migraine cocktail. Hypertension. Continue daily medication regimen with lisinopril 30 mg daily. Hyperlipidemia. Continue daily medication regimen with atorvastatin 20 mg daily. Type II vey-[id number]-[id number] diabetes mellitus. Hemoglobin A1c 6.6%. Patient to resume metformin 1000 mg twice daily and Trulicity 1.5 mg subcu weekly. Hypomagnesemia. Resolved after replacement with repeat magnesium 2.2. Hospital Course: Patient is a very pleasant 43-year-old female with a past medical history of hypertension, hyperlipidemia, and type II sog-buazbit-dirvprxvx diabetes mellitus. She presented to the emergency department with a chief complaint of chest pain, headache, nausea, and generalized weakness. She underwent full evaluation in the emergency department. Upon arrival patient hypertensive with blood pressure 183/76, heart rate 59, respiratory rate 20, temp 98.6 F, and SpO2 of 99% on room air. EKG was completed showing normal sinus rhythm at 60 bpm with no significant T wave or ST abnormalities showing no signs of acute ischemia upon personal review and interpretation. Chest x-ray completed negative for acute cardiopulmonary process. CT brain negative reporting no acute intracranial abnormalities. CTA head unremarkable. CTA neck also negative for acute process. Labs were completed and reviewed. CBC showing mild leukocytosis with WBC count of 11.9. BMP showing mild non-anion gap metabolic acidosis with chloride of 108, bicarb 21, and anion gap of 9. Magnesium was low at 1.5. Liver profile unremarkable. Urinalysis negative for infection. Influenza A, influenza B, RSV, and COVID PCR negative. Patient was admitted under our services with consultation to cardiology. Troponins trended overnight all negative at less than 0.012 x 4 draws. Repeat magnesium normal findings at 2.2. Echocardiogram completed showing preserved EF of 55 to 60% with no obvious regional wall motion abnormality and no significant valvular dysfunction. Patient was evaluated by cardiology and taken for cardiac stress test. Stress test reporting no echocardiographic and ECG evidence of ischemia at 80% maximum heart rate with good exercise tolerance with a reported METS of 10.5. Patient cleared from cardiac perspective. She now reports headache and chest pain has completely resolved. Medically, patient is stable for discharge at this time. No medication changes were made during this admission. Patient to follow-up outpatient with PCP in 1 to 2 days and with application development specialist in 1 week. Physical exam: Vital signs reviewed and stable. General: Nontoxic, no distress and appears stated age. Derm: Skin warm and dry, normal coloration for ethnicity. Head: Atraumatic, normocephalic and symmetric. Eyes: EOMs intact, no lid lag, and anicteric sclera Mouth: no lip lesions, mucus membranes moist Cardiovascular: regular rate and rhythm with normal S1S2, no murmur, positive posterior tibial pulses bilaterally, and cap refill < 2 seconds. Lungs: Respirations even, regular, and unlabored on room air. Lungs CTA bilaterally, no rhonchi, no rales, no wheezing, and no accessory muscle usage. Abdominal: soft, nontender to palpation, no guarding, no appreciable organomegaly Ext: ROM intact. No gross muscle atrophy, no edema, no contractures Neuro: Speech clear, face symmetrical and CN II-XII grossly intact with no noted focal neuro deficits Psych: Alert and oriented to person, place, time, and situation. Appropriate and pleasant affect. A total of 33 minutes of time were spent preparing this complex discharge summary. Pt was discharged on 04/25/2023 at 2:47 PM Patient was seen independently by Nurse Practitioner. This document was prepared using [employer] dictation software. Please allow for errors in paster hat lining while rare they do occur. I reviewed the documentation as provided by the MILLA above, who is the original author of this note. I agree with the documented assessment and plan, with the following changes: none Patient Condition at Discharge: Stable Plan - Discharge Summary Discharge Rx Participant: No New Discharge Prescriptions: Continue metFORMIN HCL [Glucophage] 1,000 mg PO BID lisinopriL [Zestril] 30 mg PO DAILY Atorvastatin [Lipitor] 20 mg PO DAILY Dulaglutide [Trulicity] 1.5 mg SQ DIRECTED Discharge Medication List metFORMIN HCL [Glucophage] 1,000 mg PO BID 01/21/21 [History] lisinopriL [Zestril] 30 mg PO DAILY 12/01/21 [History] Atorvastatin [Lipitor] 20 mg PO DAILY 05/22/22 [History] Dulaglutide [Trulicity] 1.5 mg SQ DIRECTED 05/22/22 [History] Follow up Appointment(s)/Referral(s): Evens Wood MD [Medical Doctor] - 1 Week Virginia Hobbs MD [REFERRING] - 1-2 Days Patient Instructions/Handouts: Chest Pain (DC), Acute Headache (DC) Activity/Diet/Wound Care/Special Instructions: Activity: As tolerated. Take breaks as needed. Diet: Heart healthy and carb consistent diet. Avoid salts, or foods with hidden salts such as canned or boxed foods and frozen dinners. Extra salt makes your heart work harder and traps the fluid in your body for longer. Special Instructions: Take all of your medications as directed and remember to keep all of your doctor's appointments and follow-up as needed. Thank you for allowing us to participate in your care, it was truly a pleasure having you for our patient!!! FOLLOW UP DIRECTED, SOONER IF PROBLEMS OR CONCERNS. Discharge Disposition: HOME SELF-CARE
== END 2023-04-25 15:54 | disposition home or self-care (01) ==
LOC: EC 18:21 → 6NMEDSUR 23:24
PROVIDERS: ADMIT Internal Medicine; ATTEND Internal Medicine
DX: R07.89 Other chest pain (principal); R10.13 Epigastric pain; E83.42 Hypomagnesemia; E87.20 Acidosis, unspecified; R51.9 Headache, unspecified; I10 Essential (primary) hypertension; E78.5 Hyperlipidemia, unspecified; E11.9 Type 2 diabetes mellitus without complications; F17.210 Nicotine dependence, cigarettes, uncomplicated; R35.0 Frequency of micturition; D72.829 Elevated white blood cell count, unspecified; R53.1 Weakness; R11.0 Nausea; E66.9 Obesity, unspecified; Z68.36 Body mass index [BMI] 36.0-36.9, adult; Z11.52 Encounter for screening for COVID-19; Z11.59 Encounter for screening for other viral diseases; Z79.84 Long term (current) use of oral hypoglycemic drugs; Z79.85 Long-term (current) use of injectable non-insulin antidiabetic drugs; Z79.899 Other long term (current) drug therapy
CPT/HCPCS: 96376; 96365; 96366; 96372; 96375 ×2; 99285; 36415; 93005; 93306; 93351; 80053; 82150; 83690; 83735 ×2; 84484 ×2; 85025; 85610; 85730; 81003; 83036; 87636; 71046; 70496; 70450; 70498; G0378; J1200; J0780; J1644; J3475; J1885 ×2; Q9967

== ENCOUNTER 2024-08-20 19:13 | Emergency (ER) | payer OTHER ==
[2024-08-20 19:17] VITALS: RESP 18
[2024-08-20] MEDS: ASPIRIN 81 MG PO STA (19:59)
[2024-08-20] MEDS: NITROGLYCERIN SL TABS 0.4 MG TAB SUBLINGUAL STA (20:00)
[2024-08-20 20:07] LABS: Basophils # (A) 0.05 10*3/uL (0.00-0.10); Basophils % (A) 0.5 %; Eosinophils # (A) 0.25 10*3/uL (0.04-0.35); Eosinophils % (A) 2.5 %; HCT 34.8 % (37.2-46.3); HGB 12.2 g/dL (12.0-15.0); Lymphocytes # (A) 2.30 10*3/uL (0.90-5.00); Lymphocytes % (A) 22.8 %; MCH 31.6 pg (27.0-32.0); MCHC 35.1 g/dL (32.0-37.0); MCV 90.2 fL (80.0-97.0); Monocytes # (A) 0.57 10*3/uL (0.20-1.00); Monocytes % (A) 5.6 %; Neutrophils # (A) 6.87 10*3/uL (1.80-7.70); Neutrophils % (A) 68.0 %; Platelet Count 252 10*3/uL (140-440); RBC 3.86 10*6/uL (4.10-5.20); RDW 12.2 % (11.5-14.5); WBC 10.10 10*3/uL (4.50-10.00)
--- NOTE | 2024-08-20 20:16 | XR ---
EXAMINATION TYPE: XR chest 2V DATE OF EXAM: 08/20/2024 8:12 PM COMPARISON: Chest radiographs from 04/24/2023 TECHNIQUE: XR chest 2V Frontal and lateral views of the chest. CLINICAL INDICATION:Female, 44 years old with history of Chest Pain; FINDINGS: Lungs/Pleura: There is no evidence of pleural effusion, focal consolidation, or pneumothorax. Pulmonary vascularity: Unremarkable. Heart/mediastinum: Cardiomediastinal silhouette is unremarkable. Musculoskeletal: No acute osseous pathology. IMPRESSION: No acute cardiopulmonary disease/process. [facility], , 08/20/2024 8:13 PM
[2024-08-20 20:23] LABS: ALT 17 U/L (4-34); AST 18 U/L (14-36); African American GFR (CKD) >90 (>60 ml/min/1.73 sqM); Albumin 4.1 g/dL (3.5-5.0); Alkaline Phosphatase 74 U/L (38-126); Anion Gap 10 mmol/L; Blood Urea Nitrogen 15 mg/dL (7-17); Calcium 9.6 mg/dL (8.4-10.2); Carbon Dioxide 21 mmol/L (22-30); Chloride 108 mmol/L (98-107); Glucose 160 mg/dL (74-99); Magnesium 1.3 mg/dL (1.6-2.3); Non-African American GFR(CKD) 80 (>60 ml/min/1.73 sqM); Potassium 3.8 mmol/L (3.5-5.1); Sodium 139 mmol/L (137-145); Total Protein 6.8 g/dL (6.3-8.2)
[2024-08-20 20:29] LABS: INR 0.9 (<1.2); Partial Thromboplastin Time 22.9 sec (22.0-30.0); Prothrombin Time 9.9 sec (10.0-12.5)
[2024-08-20 20:31] LABS: NT-Pro-B-Type Natriuretic Pept <20 pg/mL
[2024-08-20] MEDS: KETOROLAC 15 MG/ML 1 ML VIAL IVP STA (20:36)
[2024-08-20] MEDS: SODIUM CHLORIDE 0.9% 1,000 ML IV ONE (20:41)
[2024-08-20] MEDS: MAGNESIUM SULFATE-D5W PMX 1 GM in DEXTROSE/WATER 1 100ML.BAG IVPB ONE (20:41)
[2024-08-20 21:48] VITALS: BP 139/69; PULSE 69; TEMP 98.2
--- NOTE | 2024-08-20 22:10 | ED ---
General Adult HPI - General Chief complaint: Chest Pain Stated complaint: chest pain, left arm numb Time Seen by Provider: 08/20/24 19:25 Source: patient, RN notes reviewed, old records reviewed Mode of arrival: ambulatory Limitations: no limitations - History of Present Illness Initial comments: 44-year-old female presents emergency department complaining of chest pain. States that it started approximately 5 PM. Describes it as a sharp sensation over the left side of her chest as well as substernally. Worse with movement of her chest or left arm. States she felt some tingling as well in the left arm. May have felt a little bit of nausea. Denies shortness of breath but complains of some worsening pain on deep inspiration at the same sites. No obvious injury but patient does do a lot of heavy lifting at work. No cardiac history for the patient. Does have family history of cardiac problems. No other acute complaints at this time. No recent obvious travel. No history of blood clots. Presents for further evaluation at this time. - Related Data Home Medications Medication Instructions Recorded Confirmed metFORMIN HCL [Glucophage] 1,000 mg PO BID 01/21/21 04/25/23 lisinopriL [Zestril] 30 mg PO DAILY 12/01/21 04/25/23 Atorvastatin [Lipitor] 20 mg PO DAILY 05/22/22 04/25/23 Dulaglutide [Trulicity] 1.5 mg SQ DIRECTED 05/22/22 04/25/23 Allergies Allergy/AdvReac Type Severity Reaction Status Date / Time No Known Allergies Allergy Verified 08/20/24 19:17 Review of Systems ROS Statement: Those systems with pertinent positive or pertinent negative responses have been documented in the HPI. Review of Systems: CONST: Denies fever EYES: Denies blurry vision ENT: Denies nasal congestion C/V: Endorses chest pain RESP: Denies shortness of breath GI: Denies abdominal pain : Denies dysuria SKIN: Denies rash. MSK: Denies joint pain. NEURO: Denies headache ROS Other: All systems not noted in ROS Statement are negative. 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 History of Any Multi-Drug Resistant Organisms: None Reported Past Surgical History: Section, Cholecystectomy, Tubal Ligation Additional Past Surgical History / Comment(s): x2 Past Anesthesia/Blood Transfusion Reactions: No Reported Reaction Past Psychological History: No Psychological Hx Reported Smoking Status: Current every day smoker Past Alcohol Use History: None Reported Past Drug Use History: None Reported - Past Family History Mother Family Medical History: Diabetes Mellitus, Hyperlipidemia, Hypertension Father Family Medical History: Cancer, Diabetes Mellitus, Hyperlipidemia, Hypertension General Exam - General Exam Comments Initial Comments: General: Appears in no acute distress. HEAD: Normal with no signs of head trauma. EYES: PERRLA, EOMI, conjunctiva normal, no discharge. ENT: Hearing grossly intact, normal oropharynx. RESPIRATORY: Clear breath sounds bilaterally. No wheezes, rales, or rhonchi. C/V: Regular rate and rhythm. S1 and S2 auscultated, no edema, peripheral pulses 2+ and intact throughout ABD: Abd is soft, nontender, nondistended EXT: Normal range of motion, no obvious deformity. Reproducible chest wall pain on palpation over the sternum as well as left pectoral muscle. Worse with movement of the left shoulder as well as with twisting of the thorax. SKIN: No rashes or lesions observed on exposed skin. NEURO: Alert and oriented x 4. Limitations: no limitations Course Vital Signs 08/20/24 08/20/24 08/20/24 19:14 19:59 20:12 Temperature 97.8 F Pulse Rate 88 80 84 Respiratory 18 18 18 Rate Blood Pressure 143/84 130/71 119/69 O2 Sat by Pulse 98 98 98 Oximetry 08/20/24 21:47 Temperature 98.2 F Pulse Rate 69 Respiratory 18 Rate Blood Pressure 139/69 O2 Sat by Pulse 97 Oximetry Medical Decision Making - Medical Decision Making Was pt. sent in by a medical professional or institution (, PA, CLINICAL MANAGER, urgent care, hospital, or jail...) When possible be specific @ -No Did you speak to anyone other than the patient for history (EMS, parent, family, police, friend...)? What history was obtained from this source @ -No Did you review nursing and triage notes (agree or disagree)? Why? @ -I reviewed and agree with nursing and triage notes Were old charts reviewed (outside hosp., previous admission, EMS record, old EKG, old radiological studies, urgent care reports/EKG's, jail records)? Report findings @ -Reviewed EKG from April 2023 with no acute significant changes. Differential Diagnosis (chest pain, altered mental status, abdominal pain women, abdominal pain men, vaginal bleeding, weakness, fever, dyspnea, syncope, headache, dizziness, GI bleed, back pain, seizure, CVA, palpatations, mental health, musculoskeletal)? @ -Differential Chest Pain: Stable Angina, Unstable Angina, STEMI, NSTEMI Aortic Dissection, Pneumothorax, Musculoskeletal, Esophageal Spasm GERD, Cholecystitis, Pancreatitis, Zoster, this is not meant to be an all-inclusive list. EKG interpreted by me (3pts min.). @ -As above X-rays interpreted by me (1pt min.). @ -Chest x-ray shows no obvious acute cardiopulmonary process. CT interpreted by me (1pt min.). @ -None done U/S interpreted by me (1pt. min.). @ -None done What testing was considered but not performed or refused? (CT, X-rays, U/S, labs)? Why? @ -None What meds were considered but not given or refused? Why? @ -None Did you discuss the management of the patient with other professionals (professionals i.e. , PA, CLINICAL MANAGER, lab, RT, psych nurse, social media manager, rough planer tender, teacher, chief mechanical officer, case picker)? Give summary @ -No Was smoking cessation discussed for >3mins.? @ -No Was critical care preformed (if so, how long)? @ -No Were there social determinants of health that impacted care today? How? (Homelessness, low income, unemployed, alcoholism, drug addiction, transportation, low edu. Level, literacy, decrease access to med. care, [facility], rehab)? @ -No Was there de-escalation of care discussed even if they declined (Discuss DNR or withdrawal of care, Hospice)? DNR status @ -No What co-morbidities impacted this encounter? (DM, HTN, Smoking, COPD, CAD, Cancer, CVA, ARF, Chemo, Hep., AIDS, mental health diagnosis, sleep apnea, morbid obesity)? @ -None Was patient admitted / discharged? Hospital course, mention meds given and route, prescriptions, significant lab abnormalities, going to OR and other pertinent info. @ -Presents emergency department with what appears to be more chest wall pain/a typical chest pain. Started at approximately 5 PM, within the last 3 hours. We will obtain cardiopulmonary workup. Patient will be given 324 mg of aspirin as well as a nitroglycerin tablet. She was in agreement this plan. Vitals within acceptable limits. Nitro did nothing for the patient's chest pain. Patient given Toradol which should help with the headache as well as the patient's chest pain. Laboratory studies returned relatively unremarkable including normal D-dimer for her age. Troponin undetectable. Patient is mildly hypomagnesemic to 1.3 which is replenished. Chest x-ray unremarkable. EKG shows no signs of acute ischemia. I spoke with the patient at this time and patient is low risk per heart score at 2-3 points, however we will obtain second troponin while she is receiving magnesium supplementation. She was in agreement this plan. Second EKG shows no signs of acute ischemia.Repeat 3-hour troponin returned negative. Patient jayant improved in terms of symptoms. Patient will be discharged home at this time. She was in agreement this plan. I recommend she follow-up with her composition teacher and she was in agreement this plan. Heart score is low. Strict return precautions discussed. I instructed the patient to follow up with their PCP in the next 1-3 days. I explained that the patient should return to the emergency department if they experience any worsening symptoms. Strict return precautions were discussed with the patient. The patient expressed understanding of these instructions. I answered all questions that the patient had. The patient was discharged home in [good] condition with their prescriptions and follow up information. Undiagnosed new problem with uncertain prognosis? @ -No Drug Therapy requiring intensive monitoring for toxicity (Heparin, Nitro, Insulin, Cardizem)? @ -No Were any procedures done? @ -No Diagnosis/symptom? @ -Chest wall pain, hypomagnesemia Acute, or Chronic, or Acute on Chronic? @ -Acute Uncomplicated (without systemic symptoms) or Complicated (systemic symptoms)? @ -Uncomplicated Side effects of treatment? @ -No Exacerbation, Progression, or Severe Exacerbation? @ -No Poses a threat to life or bodily function? How? (Chest pain, USA, VT, pneumonia, PE, COPD, DKA, ARF, appy, cholecystitis, CVA, Diverticulitis, Homicidal, Suicidal, threat to staff... and all critical care pts) @ -Unlikely at this time - Lab Data Result diagrams: 08/20/24 20:02 08/20/24 20:02 Lab Results 08/20/24 08/20/24 08/20/24 Range/Units 20:02 20:02 20:02 WBC 10.10 H (4.50-10.00) 10*3/uL RBC 3.86 L (4.10-5.20) 10*6/uL Hgb 12.2 (12.0-15.0) g/dL Hct 34.8 L (37.2-46.3) % MCV 90.2 (80.0-97.0) fL MCH 31.6 (27.0-32.0) pg MCHC 35.1 (32.0-37.0) g/dL Plt Count 252 (140-440) 10*3/uL MPV 10.4 (9.5-12.2) fL Immature Gran % (Auto) 0.6 % Neutrophils % 68.0 % Lymphocytes % 22.8 % Monocytes % 5.6 % Eosinophils % 2.5 % Basophils % 0.5 % Immature Gran # 0.06 H (0.00-0.04) 10*3/uL Neutrophils # 6.87 (1.80-7.70) 10*3/uL Lymphocytes # 2.30 (0.90-5.00) 10*3/uL Monocytes # 0.57 (0.20-1.00) 10*3/uL Eosinophils # 0.25 (0.04-0.35) 10*3/uL Basophils # 0.05 (0.00-0.10) 10*3/uL PT 9.9 L (10.0-12.5) sec INR 0.9 (<1.2) APTT 22.9 (22.0-30.0) sec D-Dimer 0.26 (<0.60) mg/L FEU Sodium 139 (137-145) mmol/L Potassium 3.8 (3.5-5.1) mmol/L Chloride 108 H (98-107) mmol/L Carbon Dioxide 21 L (22-30) mmol/L Anion Gap 10 mmol/L BUN 15 (7-17) mg/dL Creatinine 0.87 (0.52-1.04) mg/dL Est GFR (CKD-EPI)AfAm >90 (>60 ml/min/1.73 sqM) Est GFR (CKD-EPI)NonAf 80 (>60 ml/min/1.73 sqM) Glucose 160 H (74-99) mg/dL Calcium 9.6 (8.4-10.2) mg/dL Magnesium 1.3 L (1.6-2.3) mg/dL Total Bilirubin 0.3 (0.2-1.3) mg/dL AST 18 (14-36) U/L ALT 17 (4-34) U/L Alkaline Phosphatase 74 (38-126) U/L Troponin I (0.000-0.034) ng/mL NT-Pro-B Natriuret Pep <20 pg/mL Total Protein 6.8 (6.3-8.2) g/dL Albumin 4.1 (3.5-5.0) g/dL 08/20/24 08/20/24 Range/Units 20:02 22:55 WBC (4.50-10.00) 10*3/uL RBC (4.10-5.20) 10*6/uL Hgb (12.0-15.0) g/dL Hct (37.2-46.3) % MCV (80.0-97.0) fL MCH (27.0-32.0) pg MCHC (32.0-37.0) g/dL Plt Count (140-440) 10*3/uL MPV (9.5-12.2) fL Immature Gran % (Auto) % Neutrophils % % Lymphocytes % % Monocytes % % Eosinophils % % Basophils % % Immature Gran # (0.00-0.04) 10*3/uL Neutrophils # (1.80-7.70) 10*3/uL Lymphocytes # (0.90-5.00) 10*3/uL Monocytes # (0.20-1.00) 10*3/uL Eosinophils # (0.04-0.35) 10*3/uL Basophils # (0.00-0.10) 10*3/uL PT (10.0-12.5) sec INR (<1.2) APTT (22.0-30.0) sec D-Dimer (<0.60) mg/L FEU Sodium (137-145) mmol/L Potassium (3.5-5.1) mmol/L Chloride (98-107) mmol/L Carbon Dioxide (22-30) mmol/L Anion Gap mmol/L BUN (7-17) mg/dL Creatinine (0.52-1.04) mg/dL Est GFR (CKD-EPI)AfAm (>60 ml/min/1.73 sqM) Est GFR (CKD-EPI)NonAf (>60 ml/min/1.73 sqM) Glucose (74-99) mg/dL Calcium (8.4-10.2) mg/dL Magnesium (1.6-2.3) mg/dL Total Bilirubin (0.2-1.3) mg/dL AST (14-36) U/L ALT (4-34) U/L Alkaline Phosphatase (38-126) U/L Troponin I <0.012 <0.012 (0.000-0.034) ng/mL NT-Pro-B Natriuret Pep pg/mL Total Protein (6.3-8.2) g/dL Albumin (3.5-5.0) g/dL - EKG Data -: EKG Interpreted by Me EKG Comments: 12-lead Electrocardiogram Interpretation Note EKG was reviewed and interpreted by myself. 12-lead ECG performed at 1951 is interpreted by me as revealing normal sinus rhythm at a rate of 70 beats per minute. Left axis deviation. MD interval is 152 ms, QRS duration is 99 ms, QTc is 392 ms. Incomplete right bundle branch block pathology.. There were no ST or T wave abnormalities to suggest myocardial ischemia or injury. R wave progression across the precordium was satisfactory. By my interpretation this EKG is non-diagnostic for acute ischemia. 12-lead Electrocardiogram Interpretation Note EKG was reviewed and interpreted by myself. 12-lead ECG performed at 2050 is interpreted by me as revealing normal sinus rhythm at a rate of 66 beats per minute. Left axis deviation. MD interval is 146 ms, QRS durations 101 ms, QTc is 424 ms. Incomplete right bundle branch block morphology present.. There were no ST or T wave abnormalities to suggest myocardial ischemia or injury. R wave progression across the precordium was satisfactory. By my interpretation this EKG is non-diagnostic for acute ischemia. No dynamic changes when compared with EKG from earlier. Disposition Clinical Impression: Chest wall pain, Hypomagnesemia Disposition: HOME SELF-CARE Condition: Good Instructions (If sedation given, give patient instructions): Costochondritis (ED), Chest Wall Pain (ED) Is patient prescribed a controlled substance at d/c from ED?: No Referrals: Robert Loo MD [Primary Care Provider] - 1-2 days Time of Disposition: 00:08
== END 2024-08-21 00:09 | disposition home or self-care (01) ==
LOC: EC 19:13
DX: E83.42 Hypomagnesemia (principal); R07.89 Other chest pain; F17.200 Nicotine dependence, unspecified, uncomplicated
CPT/HCPCS: 36415; 93005; 85379; 83880; 80053; 83735; 84484; 85025; 85610; 85730; 71046; 99285; 96365; 96366; 96375; J3475; J1885